=== PATIENT | female | born 1970 | race Caucasian/White ===

== ENCOUNTER 2021-08-19 08:13 | Outpatient (CLI) | payer OTHER, BC, SELFPAY ==
[2021-08-19 19:00] LABS: Hematocrit 46.7 % (37.0-47.0); Hemoglobin 15.2 g/dL (12.0-15.0); Mean Corpuscular HGB Conc 32.5 g/dl (32-36); Mean Corpuscular Volume 89.1 fl (80-100); Mean Platelet Volume 9.9 fl (7.4-10.4); Platelet Count Result 280 k/mm3 (150-375); Red Blood Count 5.24 M/mm3 (4.2-5.4); Red Cell Distribution Width 13.7 % (11.5-14.5)
[2021-08-19 19:52] LABS: Alanine Aminotransferase 53 U/L (6-35); Albumin Level 3.9 g/dL (3.5-5.1); Alkaline Phosphatase 72 U/L (38-126); Anion Gap 8 mmol/L (8-16); Aspartate Amino Transferase 31 U/L (14-36); Bilirubin,Total 0.3 mg/dL (0.2-1.3); Blood Urea Nitrogen 12 mg/dL (7-17); Calcium 8.9 mg/dL (8.4-10.2); Carbon Dioxide 22 mmol/L (22-30); Chloride 109 mmol/L (98-107); Cholesterol 134 mg/dL (0-200); Estimated Glomerular Filt Rate > 60; Glucose 93 mg/dL (65-110); HDL Direct 37 mg/dL; Potassium 4.1 mmol/L (3.4-5.0); Sodium 139 mmol/L (137-145); Triglycerides 268 mg/dL (<150)
[2021-08-19 20:03] LABS: LDL Cholesterol Direct 64 mg/dL
[2021-08-19 21:03] LABS: Thyroid Stimulating Hormone Reflex 0.197 uIU/mL (0.465-4.68)
[2021-08-19 23:41] LABS: Total Triiodothyronine (T3) 1.29 NG/ML (0.97-1.69)
== END 2021-08-19 08:14 | disposition home or self-care (01) ==
PROVIDERS: PCP Family Medicine; Visit Provider Family Medicine
DX: E89.0 Postprocedural hypothyroidism (principal); F41.9 Anxiety disorder, unspecified; T78.40XA Allergy, unspecified, initial encounter
CPT/HCPCS: 36415; 80053; 80061; 84439; 84443; 84480; 85027

== ENCOUNTER 2022-10-01 15:26 | Emergency (ER) | payer OTHER, BC, SELFPAY ==
--- NOTE | ~2022-10-01 | XR_ITS ---
EXAM: XR wrist RT min 3V DATE: 10/01/2022 15:54 HISTORY: FELL OFF LADDER 10/01/22. HYPEREXTENDED/PAIN. . COMPARISON: None available. FINDINGS: Normal mineralization. Old ulnar styloid fracture. No acute fracture or dislocation. No ly tic or blastic lesion. Joint spaces are maintained. No erosion or periosteal change. Soft tissues wit hin normal limits. IMPRESSION: No acute osseous finding in the right wrist. Reviewed, dictated and finalized at location K.
[2022-10-01 15:44] VITALS: BP 128/65; PULSE 96; RESP 20; TEMP 36.9; O2SAT 96
--- NOTE | 2022-10-01 15:54 | ED_ITS ---
HPI - Extremity Injury (Upper) General Chief Complaint: Extremity Injury, Upper Stated Complaint: Right wrist History of Present Illness HPI narrative: Patient presents with right wrist pain. Patient states she was painting and fell off the ladder with her right hand out to catch herself. Slight swelling pain with movement no deformity noted. No bruising noted. Related Data Allergies Allergy/AdvReac Type Severity Reaction Status Date / Time amoxicillin Allergy Rash Verified 10/01/22 16:02 Penicillins Allergy Rash Verified 10/01/22 16:02 Review of Systems Review of Systems: CONSTITUTIONAL: Denies fever, chills, or sweats. EYES: Denies visual changes, redness, or discharge. ENT: Denies rhinorrhea, congestion, sore throat, or otalgia. CARDIOVASCULAR: Denies chest pain, palpitations, or edema. RESPIRATORY: Denies cough or dyspnea. GASTROINTESTINAL: Denies abdominal pain, nausea, vomiting, or diarrhea. GENITOURINARY: Denies dysuria or hematuria. SKIN: Denies rash or itching. MUSCULOSKELETAL: Denies back pain, joint pain, or myalgia. NEUROLOGIC: Denies headache, numbness, or weakness. PSYCHIATRIC: Denies anxiety or depression. [facility] Comments At time of signature, agree with nursing past medical, surgical, social and family history. There is no relevant family history pertinent to the presenting complaint Exam Narrative: GENERAL: Well-appearing, well-nourished, and in no acute distress. HEAD: Normocephalic, atraumatic. EYES: PERRLA and EOMI. ENT: Nares clear, no rhinorrhea or epistaxis. Mucous membranes moist. NECK: Supple. CHEST: Clear to auscultation. No respiratory distress. HEART: Regular rate and rhythm. No murmur heard. Normal peripheral pulses. ABDOMEN: Soft, nontender, nondistended, normal active bowel sounds. EXTREMITIES: Normal range of motion. No edema. HAND EXAM - Skin intact, no laceration, no swelling, no erythema, normal digit cascade with flexion of fingers, median nerve, ulnar nerve, radial nerve is intact. Normal sensation of each side of each finger, can perform `ok? sign, `cross over finger test of index and middle fingers? and `thumbs up? sign, normal thumb opposition, no scissoring. good capillary refill and radial pulse. normal flexion and extension of fingers and wrist. normal supination at wrist. Normal forearm and elbow exam. SKIN: Warm, dry, no rash. NEURO: No focal deficits. Alert and oriented x3. [place] Coma Scale Eye Opening: Spontaneous 4 [place] Coma Scale Motor: Obeys Commands 6 [place] Coma Scale Verbal: Oriented 5 [place] Coma Scale Total 15 Course Course Level of Care: Express Care Visit Discharge Plan Discharge Clinical Impression: Sprain and strain of wrist Patient Disposition: Home, Self-Care Condition: Stable Instructions: Wrist Sprain (ED) Additional Instructions: Ice to the area 20-30 minutes 4-6 times a day Elevate above heart Elastic wrap for comfort for the next 5-7 days Tylenol for lesser pain Ibuprofen regularly for the next 2-3 days for the inflammation Follow-up with PCP if further problems or concerns -If you have any worsening of symptoms or any other concerns please go to the ED immediately. Follow-up/Referrals: Elvin Smith MD [Primary Care Provider] -
== END 2022-10-01 16:10 | disposition home or self-care (01) ==
PROVIDERS: Emergency Provider Nurse Practitioner Family; PCP Family Medicine
DX: S63.501A Unspecified sprain of right wrist, initial encounter (principal); S66.911A Strain of unspecified muscle, fascia and tendon at wrist and hand level, right hand, initial encounter; W11.XXXA Fall on and from ladder, initial encounter; E11.9 Type 2 diabetes mellitus without complications; E89.0 Postprocedural hypothyroidism; Z85.850 Personal history of malignant neoplasm of thyroid
CPT/HCPCS: 73110; 99213; G0463

== ENCOUNTER 2023-01-02 15:09 | Outpatient (CLI) | payer OTHER, BC, SELFPAY ==
--- NOTE | ~2023-01-02 | MM_ITS ---
EXAMINATION: MM screening yvon BI w blas HISTORY: Screening mammogram TECHNIQUE: Craniocaudal and mediolateral oblique 3-D tomosynthesis images were obtained and synthetic 2-D images were generated. CAD analysis was submitted and interpreted. COMPARISON: 12/16/2011 BREAST PARENCHYMAL COMPOSITION: There are scattered areas of fibroglandular density. FINDINGS: No suspicious mass, calcification, or architectural distortion are identified in either monica ast to suggest malignancy. There has been no suspicious interval change. IMPRESSION: 1. No mammographic evidence of malignancy. 2. Recommend routine screening mammography in one year. BI-RADS Category 1: Negative Reviewed, dictated and finalized at location A.
== END 2023-01-02 15:10 | disposition home or self-care (01) ==
LOC: ANHIMG 15:14
PROVIDERS: PCP Family Medicine; Visit Provider Nurse Practitioner Adult Health
DX: Z12.31 Encounter for screening mammogram for malignant neoplasm of breast (principal)
CPT/HCPCS: 77063; 77067

== ENCOUNTER 2023-01-25 07:09 | Outpatient (CLI) | payer OTHER, BC, SELFPAY ==
[2023-01-25 19:26] LABS: Free T4 Free Thyroxine 1.98 ng/mL (0.78-2.19)
[2023-01-25 19:53] LABS: Thyroid Stimulating Hormone < 0.015 uIU/mL (0.465-4.680)
[2023-01-29 15:40] LABS: Triiodothyronine T3 Free 4.2 pg/mL (2.3-4.2)
== END 2023-01-25 07:10 | disposition home or self-care (01) ==
LOC: ANHBWCLAB 07:12
PROVIDERS: PCP Family Medicine; Visit Provider Family Medicine
DX: E03.9 Hypothyroidism, unspecified (principal)
CPT/HCPCS: 36415; 84439; 84443; 84481

== ENCOUNTER 2023-03-01 09:08 | Emergency (ER) | payer OTHER, BC, SELFPAY ==
[2023-03-01 09:18] VITALS: BP 149/84; PULSE 103; RESP 18; TEMP 37.6; O2SAT 96
--- NOTE | 2023-03-01 09:33 | ED.GENADULT ---
HPI - General Adult General Chief complaint: Upper Respiratory Infection Stated complaint: cough/throat/fever Source: patient, RN notes reviewed and old records reviewed Mode of arrival: ambulatory Limitations: no limitations History of Present Illness HPI narrative: 53-year-old female presents to [facility] with complaints cough, myalgia, chest congestion, and sore throat that started . Patient taking [id number] medications with no relief. Patient denies chest pain, weakness, dizziness, shortness of breath. MD complaint: Cough Onset (ago): day(s) (6) Related Data Home Medications Medication Instructions Recorded Confirmed Vitamin d3 BYMOUTH 08/18/21 calcium carbonate 500 mg calcium 500 mg PO DAILY 08/18/21 03/01/23 (1,250 mg) tablet Allergies Allergy/AdvReac Type Severity Reaction Status Date / Time amoxicillin Allergy Intermediate rash Verified 03/01/23 09:44 Penicillins Allergy Unknown Unknown Verified 03/01/23 09:44 Review of Systems Constitutional: Constitutional: Reports no additional constitutional complaints, Denies body ache(s), Denies chills, Denies fatigue, Denies fever(s) and Denies headache(s) Eyes: Eyes: Reports no additional eye complaints and Denies blurry vision ENT: Reports system reviewed and no additional complaints, except as documented, Denies vertigo, Denies dizziness, Denies ear discharge, Denies otalgia, Denies facial pain, Denies headache(s), Denies nasal congestion, Denies nasal discharge, Denies sinus pain, Denies sinus pressure and Denies sore throat Cardiovascular: Cardiovascular: Reports no additional cardiovascular complaints, Denies chest pain, Denies chest pain at rest, Denies rapid heart rate and Denies dyspnea Respiratory: Respiratory: Reports no additional respiratory complaints, Reports chest congestion, Reports cough, Denies pain on inspiration, Denies pain with cough and Denies dyspnea Gastrointestinal: Gastrointestinal: Denies abdominal pain, Denies diarrhea, Denies nausea and Denies vomiting Integumentary/Breasts: Skin/Breast: Denies rash Neurologic: Reports system reviewed and no additional complaints, except as documented, Denies vertigo, Denies dizziness and Denies headache(s) Endocrine: Endocrine: Denies fatigue PMF Past Medical History Medical History Hypothyroidism, unspecified Family History Family History Father Hypertension Mother Skin cancer Grandparent Skin cancer Social History Social History Smoking status: Never smoker Alcohol intake: never Substance use: never Substance use type: does not use Lack of Transportation: No Lack of Food: Never True Current Housing: I Have Housing Concerned About Future Housing: No Difficulty Paying Gas/Electric Bills: No Difficulty Paying for Meds: No Currently Unemployed: No Education: High School Diploma/GED Difficulty w/ Childcare or Family Care: No Living arrangements: with family Occupation/Education: occupation Additional occupation/education comments: [employer] / Patient Access Gender identity (if verbalized by the patient): Female Sexual Orientation (if Verbalized by the Patient): Straight or Heterosexual Spiritual care concerns: No Agree to blood products: Yes Comments At the time of my signature, I reviewed and agree with the nursing past medical, surgical, social, and family history. There is no relevant family history pertinent to the patient complaint. Exam Const: General: cooperative, healthy appearing, no acute distress and well nourished Nutritional Appearance: well nourished Orientation/consciousness: patient oriented x3 Limitations: no limitations HENMT: Head: normal to inspection and normocephalic Ears: external ears normal, TM's normal bilaterally
== END 2023-03-01 10:07 | disposition home or self-care (01) ==
PROVIDERS: Emergency Provider Registered Nurse; PCP Family Medicine
DX: J20.9 Acute bronchitis, unspecified (principal); Z20.822 Contact with and (suspected) exposure to COVID-19; E03.9 Hypothyroidism, unspecified
CPT/HCPCS: 87081; 87426; 87804; 87880; 99213; C9803; G0463

== ENCOUNTER 2023-04-21 10:43 | Outpatient (CLI) | payer OTHER, BC, SELFPAY ==
[2023-04-21 11:36] LABS: Free T4 Free Thyroxine 1.52 ng/mL (0.78-2.19)
[2023-04-21 11:38] LABS: Thyroid Stimulating Hormone 0.156 uIU/mL (0.465-4.680)
== END 2023-04-21 10:44 | disposition home or self-care (01) ==
LOC: ANHLAB 10:44
PROVIDERS: PCP Family Medicine; Visit Provider Internal Medicine
DX: E03.9 Hypothyroidism, unspecified (principal); C73 Malignant neoplasm of thyroid gland
CPT/HCPCS: 36415; 84439; 84443; 86800

== ENCOUNTER 2023-05-17 08:59 | Outpatient (CLI) | payer OTHER, BC, SELFPAY ==
--- NOTE | ~2023-05-17 | US_ITS ---
EXAMINATION: US soft tissue head and neck DATE: 05/17/2023 09:43 INDICATION: Thyroid cancer. TECHNIQUE: Multiple ultrasound images of the thyroid were obtained. COMPARISON: Ultrasound 12/16/2011 FINDINGS: There are changes of thyroidectomy. In the left neck, there is a 2.4 x 0.7 x 2.0 cm subcutaneous mass with echogenicity and echotexture equal to normal subcutaneous fat, consistent with a lipoma. In the left neck, there is a normal subcutaneous lymph node. In the right thyroidectomy bed, there is a 9 m m, solid, very hypoechoic, wider than tall nodule with smooth margin and macrocalcifications (TI-RADS TR5). IMPRESSION: 1. Nodule in the right thyroidectomy bed. Consider ultrasound-guided fine-needle aspiration or resect ion. Reviewed, dictated and finalized at location A. IMPRESSION: 1. Nodule in the right thyroidectomy bed. Consider ultrasound-guided fine-needl e aspiration or resection.
== END 2023-05-17 09:00 | disposition home or self-care (01) ==
PROVIDERS: PCP Family Medicine; Visit Provider Internal Medicine
DX: E03.9 Hypothyroidism, unspecified (principal); C73 Malignant neoplasm of thyroid gland
CPT/HCPCS: 36415; 76536; 86800

== ENCOUNTER 2023-05-23 09:14 | Outpatient (CLI) | payer OTHER, BC, SELFPAY ==
[2023-05-26 04:46] LABS: Thyroglobulin 0.6 ng/mL (2.8-40.9); Thyroglobulin Antibodies <1 IU/mL (<=1)
== END 2023-05-23 09:15 | disposition home or self-care (01) ==
LOC: ANHWCLAB 09:16
PROVIDERS: PCP Family Medicine; Visit Provider Internal Medicine
DX: C73 Malignant neoplasm of thyroid gland (principal)
CPT/HCPCS: 36415; 84432; 86800

== ENCOUNTER 2023-06-20 12:36 | Outpatient (CLI) | payer OTHER, BC, SELFPAY ==
--- NOTE | ~2023-06-20 | US_ITS ---
EXAMINATION: US FNA w image guidance DATE: 06/20/2023 14:15 INDICATION: Status post directly for reported thyroid cancer with 9 mm indeterminate nodule at the [facility] thyroidectomy bed TECHNIQUE: A time-out was performed to verify the patient's name, date of , and procedure to be performed . The procedure and its benefits and risks were discussed with the patient. Risks specifically discus sed included bleeding and infection. The patient understood the risks and agreed to proceed. The neck was prepped and draped in the usual sterile manner. 3 mL 1% lidocaine was used for local anesthesia . 7 passes were made with a 25G needle into the lesion. The appearance of the nodule suggested possi ble cystic component and an additional 8 pass was made with a 22G needle for attempted fluid aspirati on which did not yield an appreciable fluid. Appropriate needle location was documented with continuo us sonographic guidance. A sterile bandage was applied. There were no immediate complications. FINDINGS: Grayscale ultrasound images demonstrate biopsy needles advanced into the 9 mm very hypoechoic nodules concern at the right thyroidectomy bed. IMPRESSION: 1. Successful ultrasound-guided fine needle aspiration of a 9 mm TI RADS 5 nodule at the right thyro idectomy bed. Reviewed, dictated and finalized at location A. IMPRESSION: 1. Successful ultrasound-guided fine needle aspiration of a 9 mm TI RADS 5 nod ule at the right thyroidectomy bed.
== END 2023-06-20 12:37 | disposition home or self-care (01) ==
PROVIDERS: PCP Family Medicine; Visit Provider Internal Medicine
DX: C73 Malignant neoplasm of thyroid gland (principal)
CPT/HCPCS: 10005; 88172; 88173; 88305

== ENCOUNTER 2023-08-28 07:03 | Outpatient (CLI) | payer OTHER, BC, SELFPAY ==
[2023-08-28 19:35] LABS: Free T4 Free Thyroxine 1.01 ng/mL (0.78-2.19)
[2023-08-28 19:47] LABS: Hemoglobin A1C 5.4 % (<5.7)
[2023-08-30 07:38] LABS: Thyroglobulin 0.4 ng/mL; Thyroglobulin Antibodies <1 IU/mL (< or = 1)
== END 2023-08-28 07:04 | disposition home or self-care (01) ==
PROVIDERS: PCP Family Medicine; Visit Provider Internal Medicine
DX: C73 Malignant neoplasm of thyroid gland (principal); E03.9 Hypothyroidism, unspecified; E88.819 Insulin resistance, unspecified; R35.89 Other polyuria
CPT/HCPCS: 36415; 83036; 84432; 84439; 84443; 86800

== ENCOUNTER 2023-09-27 07:23 | Outpatient (CLI) | payer OTHER, BC, SELFPAY ==
[2023-09-27 19:11] LABS: Hematocrit 46.8 % (37.0-47.0); Hemoglobin 15.2 g/dL (12.0-15.0); Mean Corpuscular HGB Conc 32.5 g/dl (32-36); Mean Corpuscular Hemoglobin 29.3 pg (26-34); Mean Corpuscular Volume 90.2 fl (80-100); Mean Platelet Volume 9.9 fl (7.4-10.4); Platelet Count Result 309 k/mm3 (150-375); Red Blood Count 5.19 M/mm3 (4.2-5.4); Red Cell Distribution Width 13.2 % (11.5-14.5)
[2023-09-27 20:29] LABS: Alanine Aminotransferase 43 U/L (6-35); Albumin Level 4.5 g/dL (3.5-5.1); Alkaline Phosphatase 68 U/L (38-126); Anion Gap 12 mmol/L (4-12); Aspartate Amino Transferase 77 U/L (14-36); Bilirubin,Total 0.5 mg/dL (0.2-1.3); Blood Urea Nitrogen 21 mg/dL (7-17); Calcium 9.6 mg/dL (8.4-10.2); Carbon Dioxide 23 mmol/L (22-30); Chloride 104 mmol/L (98-107); Cholesterol 165 mg/dL (0-200); Estimated Glomerular Filt Rate > 60; Glucose 82 mg/dL (65-110); HDL Direct 34 mg/dL; Potassium 4.1 mmol/L (3.4-5.0); Sodium 139 mmol/L (137-145); Triglycerides 252 mg/dL (<150)
[2023-09-27 20:40] LABS: LDL Cholesterol Direct 95 mg/dL
== END 2023-09-27 07:24 | disposition home or self-care (01) ==
LOC: ANHBWCLAB 07:27
PROVIDERS: PCP Family Medicine; Visit Provider Family Medicine
DX: R74.8 Abnormal levels of other serum enzymes (principal); E03.9 Hypothyroidism, unspecified; F41.9 Anxiety disorder, unspecified; D58.2 Other hemoglobinopathies; Z00.00 Encounter for general adult medical examination without abnormal findings
CPT/HCPCS: 36415; 80053; 80061; 85027

== ENCOUNTER 2023-10-30 07:25 | Outpatient (CLI) | payer OTHER, BC, SELFPAY ==
[2023-10-30 18:55] LABS: Basophils Absolute Auto 0.1 K/mm3 (0.0-0.1); Basophils Percent Auto 1.2 % (0.2-1.2); Eosinophils Absolute Auto 0.2 K/mm3 (0-0.3); Eosinophils Percent Auto 2.3 % (0-4.4); Hematocrit 47.6 % (37.0-47.0); Hemoglobin 15.1 g/dL (12.0-15.0); Immature Granulocyte Absolute 0.02 K/mm3 (0.00-0.031); Immature Granulocyte Percent A 0.3 % (0-0.5); Lymphocytes Percent Auto 38.7 % (18.3-44.2); Mean Corpuscular HGB Conc 31.7 g/dl (32-36); Mean Corpuscular Volume 91.4 fl (80-100); Monocytes Absolute Auto 0.6 K/mm3 (0.1-0.6); Monocytes Percent Auto 8.7 % (2.6-8.5); Neutrophils Absolute Auto 3.2 K/mm3 (1.3-6.7); Neutrophils Percent Auto 48.8 % (45.5-73.1); Platelet Count Result 282 k/mm3 (150-375); Red Blood Count 5.21 M/mm3 (4.2-5.4); Red Cell Distribution Width 13.5 % (11.5-14.5); White Blood Count 6.5 K/mm3 (4.5-10.0)
[2023-10-30 18:56] LABS: Cholesterol 139 mg/dL (0-200); HDL Direct 37 mg/dL; Magnesium 2.3 mg/dL (1.6-2.3); Triglycerides 226 mg/dL (<150)
[2023-10-30 19:08] LABS: LDL Cholesterol Direct 64 mg/dL
[2023-10-30 19:27] LABS: Cortisol Baseline 8.56 ug/dL
[2023-10-30 19:28] LABS: Thyroid Stimulating Hormone 0.211 uIU/mL (0.465-4.680)
[2023-10-30 19:51] LABS: Vitamin D 25 Hydroxy 23.4 ng/mL
[2023-10-30 20:04] LABS: Vitamin B12 > 1000.0 pg/mL (239-931)
[2023-10-30 22:45] LABS: Iron 118 ug/dL (37-170)
[2023-10-30 23:02] LABS: Free T4 Free Thyroxine 1.39 ng/mL (0.78-2.19)
[2023-10-30 23:39] LABS: Percent Iron Saturation 35 % (20-50)
[2023-11-02 02:44] LABS: Triiodothyronine T3 Free 3.7 pg/mL (2.3-4.2)
[2023-11-02 03:15] LABS: DHEA-Sulfate 101 mcg/dL (5-167)
[2023-11-04 06:39] LABS: Adrenocorticotropic Hormone 15 pg/mL (6-50)
[2023-11-10 17:00] LABS: Thyroid Peroxidase Antibodies <1 IU/mL (<9)
== END 2023-10-30 07:26 | disposition home or self-care (01) ==
LOC: ANHBWCLAB 07:32
PROVIDERS: PCP Family Medicine; Visit Provider Internal Medicine Endocrinology, Diabetes & Metabolism
DX: E03.9 Hypothyroidism, unspecified (principal); R53.83 Other fatigue; E55.9 Vitamin D deficiency, unspecified; N95.1 Menopausal and female climacteric states; E13.22 Other specified diabetes mellitus with diabetic chronic kidney disease
CPT/HCPCS: 36415; 80061; 82024; 82306; 82533; 82607; 82627; 82746; 83540; 83550; 83735; 84439; 84443; 84481; 85025; 86376; 86800

== ENCOUNTER 2023-11-18 10:02 | Emergency (ER) | payer OTHER, BC, SELFPAY ==
[2023-11-18 10:09] VITALS: BP 144/84; PULSE 80; RESP 16; TEMP 37; O2SAT 100
--- NOTE | 2023-11-18 10:24 | ED.SKABFB ---
HPI - Skin/Abscess/Foreign Bdy General Chief complaint: Skin/Abscess/Foreign Body Stated complaint: poison on lower and upper body Time Seen by Provider: 11/18/23 10:24 Source: patient, RN notes reviewed and old records reviewed Mode of arrival: ambulatory Limitations: no limitations History of Present Illness HPI narrative: 53-year-old female to [facility] for complaint of red, raised, itchy rash to bilateral legs for 1 week, to bilateral ankles since Monday, and to bilateral hands since this morning. Patient states that she has not attempted to treat with medication today. Patient believes rash to be caused by poison letha. Patient reports history of similar reactions. Patient denies rash to face, cough, shortness of breath, pertinent medical history. Patient resting comfortably in exam room in no acute distress. Respirations even and nonlabored. Related Data Home Medications Medication Instructions Recorded Confirmed Vitamin d3 BYMOUTH 08/18/21 calcium carbonate 500 mg PO DAILY 04/21/23 Allergies Allergy/AdvReac Type Severity Reaction Status Date / Time amoxicillin Allergy Intermediate rash Verified 09/18/23 12:29 Penicillins Allergy Unknown Unknown Verified 09/18/23 12:29 Review of Systems Review of Systems: All systems reviewed & are unremarkable except as noted in HPI and below Constitutional: Constitutional: Reports no additional constitutional complaints Eyes: Eyes: Reports no additional eye complaints ENT: Reports system reviewed and no additional complaints, except as documented Cardiovascular: Cardiovascular: Reports no additional cardiovascular complaints, Denies chest pain and Denies dyspnea Respiratory: Respiratory: Reports no additional respiratory complaints, Denies cough and Denies dyspnea Musculoskeletal: Musculoskeletal: Reports no additional musculoskeletal complaints Integumentary/Breasts: Skin/Breast: Reports as per HPI, Reports pruritus and Reports rash Neurologic: Reports system reviewed and no additional complaints, except as documented Psychiatric: Psychiatric: Reports no additional psychiatric complaints [facility] Past Medical History Medical History Hypothyroidism, unspecified Thyroid cancer Surgical History Surgical History Hx of thyroidectomy Family History Family History Father Hypertension Mother Skin cancer Grandparent Skin cancer Social History Social History (Reviewed 11/18/23 @ 18:07 by [employer]o Smoking status: Never smoker Alcohol intake: never Substance use: never Substance use type: does not use Lack of Transportation: No Lack of Food: Never True Current Housing: I Have Housing Concerned About Future Housing: No Difficulty Paying Gas/Electric Bills: No Difficulty Paying for Meds: No Currently Unemployed: No Education: High School Diploma/GED Difficulty w/ Childcare or Family Care: No Living arrangements: with family Occupation/Education: occupation Additional occupation/education comments: [employer] / Patient Access Gender identity (if verbalized by the patient): Female Sexual Orientation (if Verbalized by the Patient): Straight or Heterosexual Spiritual care concerns: No Agree to blood products: Yes Comments At the time of my signature, I reviewed and agree with the nursing past medical, surgical, social, and family history. There is no relevant family history pertinent to the patient complaint. Exam Const: General: cooperative, healthy appearing, comfortable, no acute distress, alert and well nourished Nutritional Appearance: well nourished Orientation/consciousness: patient oriented x3 Limitations: no limitations HENMT: Head: normal to inspection Ears: external ears normal Face/Nose/Si
== END 2023-11-18 10:36 | disposition home or self-care (01) ==
PROVIDERS: Emergency Provider Nurse Practitioner Family; PCP Family Medicine
DX: L25.9 Unspecified contact dermatitis, unspecified cause (principal); E03.9 Hypothyroidism, unspecified; Z85.850 Personal history of malignant neoplasm of thyroid
CPT/HCPCS: 99213; G0463

== ENCOUNTER 2024-02-13 09:48 | Outpatient (CLI) | payer OTHER, BC, SELFPAY ==
--- NOTE | ~2024-02-13 | US_ITS ---
Thyroid ultrasound. Clinical History: Hypothyroid Findings: Real-time sonography of the thyroid gland was performed. COMPARISON: 05/17/2023 Patient is status post thyroidectomy. There is a 1.0 x 1.0 x 0.9 cm rounded mildly heterogeneous nodu le in the right thyroid bed. No other abnormality seen. Impression: Stable 1 cm nodule in the right thyroid lobe bed. Correlate with prior biopsy results.. Reviewed, dictated and finalized at location . E [facility] [facility] Impression: Stable 1 cm nodule in the right thyroid lobe bed. Correlate with prior biopsy r esults..
== END 2024-02-13 09:49 | disposition home or self-care (01) ==
PROVIDERS: PCP Family Medicine; Visit Provider Internal Medicine Endocrinology, Diabetes & Metabolism
DX: E03.9 Hypothyroidism, unspecified (principal)
CPT/HCPCS: 76536

== ENCOUNTER 2024-03-18 08:27 | Outpatient (CLI) | payer OTHER, BC, SELFPAY ==
[2024-03-18 19:49] LABS: Basophils Absolute Auto 0.1 K/mm3 (0.0-0.1); Basophils Percent Auto 1.1 % (0.2-1.2); Eosinophils Absolute Auto 0.1 K/mm3 (0-0.3); Eosinophils Percent Auto 1.3 % (0-4.4); Hemoglobin 15.9 g/dL (12.0-15.0); Immature Granulocyte Absolute 0.01 K/mm3 (0.00-0.031); Immature Granulocyte Percent A 0.2 % (0-0.5); Lymphocytes Absolute Auto 1.76 K/mm3 (0.9-3.2); Lymphocytes Percent Auto 28.2 % (18.3-44.2); Mean Corpuscular HGB Conc 33.1 g/dl (32-36); Mean Corpuscular Volume 87.4 fl (80-100); Mean Platelet Volume 10.1 fl (7.4-10.4); Monocytes Absolute Auto 0.4 K/mm3 (0.1-0.6); Monocytes Percent Auto 6.1 % (2.6-8.5); Neutrophils Percent Auto 63.1 % (45.5-73.1); Platelet Count Result 296 k/mm3 (150-375); Red Blood Count 5.49 M/mm3 (4.2-5.4); Red Cell Distribution Width 13.4 % (11.5-14.5); White Blood Count 6.3 K/mm3 (4.5-10.0)
[2024-03-18 20:09] LABS: Cholesterol 181 mg/dL (0-200); HDL Direct 35 mg/dL; Magnesium 2.4 mg/dL (1.6-2.3); Triglycerides 249 mg/dL (<150)
[2024-03-18 20:20] LABS: LDL Cholesterol Direct 106 mg/dL
[2024-03-18 21:14] LABS: Vitamin B12 > 1000.0 pg/mL (239-931)
[2024-03-18 21:15] LABS: Iron 121 ug/dL (37-170)
[2024-03-18 21:24] LABS: Percent Iron Saturation 35 % (20-50)
[2024-03-18 21:39] LABS: Vitamin D 25 Hydroxy 39.5 ng/mL
[2024-03-19 06:28] LABS: DHEA-Sulfate 99 mcg/dL (5-167)
[2024-03-19 06:38] LABS: Triiodothyronine T3 Free 2.9 pg/mL (2.3-4.2)
== END 2024-03-18 08:28 | disposition home or self-care (01) ==
PROVIDERS: PCP Family Medicine
DX: E03.9 Hypothyroidism, unspecified (principal); E13.22 Other specified diabetes mellitus with diabetic chronic kidney disease; E55.9 Vitamin D deficiency, unspecified; N95.1 Menopausal and female climacteric states; R53.83 Other fatigue
CPT/HCPCS: 36415; 80061; 82024; 82306; 82533; 82607; 82627; 82746; 83540; 83550; 83735; 84439; 84443; 85025; 86800

== ENCOUNTER 2024-03-26 09:33 | Outpatient (CLI) | payer BC, OTHER, SELFPAY ==
[2024-03-26 20:07] LABS: Hematocrit 49.6 % (37.0-47.0); Hemoglobin 16.3 g/dL (12.0-15.0); Mean Corpuscular HGB Conc 32.9 g/dl (32-36); Mean Corpuscular Hemoglobin 29.1 pg (26-34); Mean Corpuscular Volume 88.4 fl (80-100); Mean Platelet Volume 10.1 fl (7.4-10.4); Platelet Count Result 285 k/mm3 (150-375); Red Blood Count 5.61 M/mm3 (4.2-5.4); Red Cell Distribution Width 13.6 % (11.5-14.5); White Blood Count 6.5 K/mm3 (4.5-10.0)
[2024-03-26 20:14] LABS: Alanine Aminotransferase 49 U/L (6-35); Albumin Level 4.8 g/dL (3.5-5.1); Alkaline Phosphatase 84 U/L (38-126); Anion Gap 8 mmol/L (4-12); Aspartate Amino Transferase 41 U/L (14-36); Bilirubin,Total 0.6 mg/dL (0.2-1.3); Blood Urea Nitrogen 17 mg/dL (7-17); Calcium 9.6 mg/dL (8.4-10.2); Carbon Dioxide 28 mmol/L (22-30); Chloride 104 mmol/L (98-107); Estimated Glomerular Filt Rate > 60; Glucose 86 mg/dL (65-110); Potassium 4.2 mmol/L (3.4-5.0); Sodium 140 mmol/L (137-145)
[2024-03-26 20:16] LABS: Iron 74 ug/dL (37-170)
[2024-03-26 20:41] LABS: Percent Iron Saturation 21 % (20-50)
[2024-03-26 20:55] LABS: HAV RESULT Negative (Negative); Hepatitis B Surface Antigen Negative (Negative)
[2024-03-26 21:07] LABS: Hepatitis C Virus Antibody Negative (Negative)
[2024-03-26 21:10] LABS: Vitamin B12 > 1000.0 pg/mL (239-931)
[2024-03-26 22:08] LABS: Hepatitis B Core IgM Result Negative (Negative)
--- OUTSIDE RECORDS SUMMARY | 2024-03-28 16:53 | XMS_ITS | Clinical Summary ---
Author Organization [facility] Medical Office Building B Address [address] [place] [address] Care Team Providers Care Teacher Cclc Name Role Phone Leonila Young SERGIO Primary Care Provider [phone] [phone] Allergies Active Allergy Reactions Criticality Noted Date Comments Adhesive Tape-Silicones Blisters High Reaction: BLISTERS, Amoxicillin Rash,Other (See comments) Low Reaction: Reaction: Rash, ?? Latex Other (See comments) Low Reaction: Penicillins Medications calcium carbonate-vitamin D3 (CALCIUM 600 + D,3,) 1500 mg (600 mg elemental) -400 units per tablet 0 0 3 Active ascorbic acid (VITAMIN C) 100 mg tablet Take 100 mg by mouth daily Active levothyroxine (SYNTHROID) 100 mcg tabletIndications: Postoperative hypothyroidism Take 1 tablet (100 mcg total) by mouth daily 90 tablet 3 0 Active cetirizine (ZyrTEC) 10 mg tabletIndications: Upper respiratory tract infection, unspecified type Take 1 tablet by mouth once daily 90 tablet 1 0 Active azelastine (ASTELIN) 137 mcg (0.1 %) nasal spray Administer 1 spray into each nostril 2 (two) times a day Use in each nostril as directed 30 mL 3 0 Active fluticasone propionate (Flonase Allergy Relief) 50 mcg/actuation nasal sprayIndications:U pper respiratory tract infection, unspecified type Administer 2 sprays into each nostril daily 1 Inhaler 3 0 Active calcium carbonate (CALCIUM 500 ORAL) calcium 9 Active ergocalciferol, vitamin D2, (VITAMIN D2 ORAL) Vitamin D2 9 Active metFORMIN XR (GLUCOPHAGE XR) 500 mg 24 hr tablet metformin ER 500 mg tablet,extende d release 24 hr TAKE 1 TABLET BY MOUTH TWICE DAILY WITH MEALS Active Active Problems Problem Noted Date Diagnosed Date Vitamin D deficiency 07/12/2021 Nontoxic multinodular goiter 04/03/2019 Post-menopause on HRT (hormone replacement thera py) 04/25/2018 Hot flashes due to menopause 04/25/2018 Hepatic lesion 04/25/2018 Lipoma of neck 04/10/2018 Assessment & Plan (04/10/2018 3:18 PM ACCOUNT INSTALLATION SPECIALIST): After review of the case with , the recommendation is for biopsy of the mass, will schedule for fine needle aspiration with biopsy. Future treatment pending results of biopsy. Patient agrees to this plan. BMI 27.0-27.9,adult 04/27/2017 Assessment & Plan (10/04/2019 9:33 AM CDT): Healthy, low carbohydrate lifestyle and exercise for 150min/week recommended Assessment & Plan (05/22/2019 11:52 AM CDT): Healthy, low carbohydrate lifestyle and exercise for 150min/week recommended Assessment & Plan (05/01/2019 9:50 AM ACCOUNT INSTALLATION SPECIALIST): Discussed/ordered labs, Condition is improving, encouraged healthy, low carbohydrate lifestyle and at least 150min/week of exercise, continue going to the gym and eating healthy Assessment & Plan (04/03/2019 11:48 AM ACCOUNT INSTALLATION SPECIALIST): Healthy, low carbohydrate lifestyle and exercise for 150min/week recommended Assessment & Plan (12/26/2018 12:01 PM CDT): Healthy, low carbohydrate diet and exercise for 150min/week recommended Postoperative hypothyroidism 12/31/2012 Overview (06/08/2016): Hypothyroidism, postop Resolved Problems Problem Noted Date Diagnosed Date Resolved Date Malignant neoplasm of thyroid gland 04/03/2019 05/01/2019 Hypothyroidism 10/08/2018 07/12/2021 Assessment & Plan (05/01/2019 9:59 AM ACCOUNT INSTALLATION SPECIALIST): Today we are following up on her anxiety. Since starting the new dose of levothyroxine 112mcg, she has been feeling much less anxiety. She does not want anything for anxiety. Assessment & Plan (04/03/2019 11:47 AM ACCOUNT INSTALLATION SPECIALIST): Pt sees endocrinology, but their office canceled her last 2 appts. Pt is not due to see endo again until May. We will draw labs today to make sure the thyroid is not the cause of her anxiety. If it is not, we will treat the anxiety with buspirone. History of malignant neoplasm of thyroid 12/31/2012 05/01/2019 Overview (06/09/2016): History of thyroid cancer Assessment & Plan (05/01/2019 9:48 AM ACCOUNT INSTALLATION SPECIALIST): Pt had thyroid removed. Dietary counseling and surveillance 12/21/2011 06/14/2019 Immunizations Name Administration Dates Next Due Influenza, Trivalent, IM (MDV) 12/25/2017 Influenza, Unspecified 04/15/2021(Deferr ed: Patient Refused),12/05/2018,03/14/2018(Deferred: Patient ill today) Tdap 12/26/2018 ZOSTER Recombinant 05/01/2019,02/21/2019 Surgical History Surgery Date Site/Laterality Comments SECTION Sections x 2 THYROIDECTOMY 03/06/2011 - 03/05/2012 HYSTERECTOMY 03/06/2012 - 03/05/2013 fibroid uterus Medical History Medical History Date Comments Anemia History of radiation therapy History of malignant neoplasm of thyroid 2011 History of thyroid cancer Family History Medical History Relation Name Comments Cancer Maternal Grandfather Kidney cancer Maternal Grandfather Cancer Maternal Grandmother Lung cancer Maternal Grandmother Other Mother Cancer, basal c ell; Cancer Mother's Brother Kidney cancer Mother's Brother Relation Name Status Comments Maternal Grandfather Maternal Grandmother Mother Mother's Brother Social History Tobacco Use Types Packs/Day Years Used Date Smoking Tobacco: Never Smokeless Tobacco: Never Alcohol Use Standard Drinks/Week Comments Yes 0 (1 standard drink = 0.6 oz pur e alcohol) occasionally PHQ-2 Answer Date Recorded PHQ-2 Total Score (If total score is 3 or more points, staff should administer the PHQ-9) 0 04/15/2021 Personal Safety Answer Date Recorded Getting School Help Needed Not on file 04/26 Comments No Sex and Gender Information Value Date Recorded Sex Assigned at Not on file Legal Sex Female 10:47 AM ACCOUNT INSTALLATION SPECIALIST Gender Identity Not on file Sexual Orientation Not on file Obstetrics History Para Term AB IAB SAB Ectopic Multiple Livin g Live Births 2 2 2 1 3 3 Date Outcome GA Total Labor Labor// Weight Sex Type Anes PTL Jacqueline A1 A5 Name Clin 04/02 Term 2.551 kg (5 lb 10 oz) F CS-Un spec General N Living Complications:None 04/02 Term 3.005 kg (6 lb 10 oz) F CS-Un spec Living 11/17 Term 3.997 kg (8 lb 13 oz) F CS-Un spec General N Living Complications:None Last Filed Vital Signs Vital Sign Reading Time Taken Comments Blood Pressure 131/87 10/04/2019 9:22 AM CDT Pulse 97 10/04/2019 9:22 AM CDT Temperature 36.1 ??C (96.9 ??F) 10/04/2019 9:22 AM CD T Respiratory Rate 12 05/01/2019 9:33 AM ACCOUNT INSTALLATION SPECIALIST Oxygen Saturation 97% 10/04/2019 9:22 AM CDT Inhaled Oxygen Concentration - - Weight 65.3 kg (144 lb) 10/05/2020 12:52 PM CDT Height 152.4 cm (5') 04/15/2021 2:13 PM ACCOUNT INSTALLATION SPECIALIST Body Mass Index 28.12 10/05/2020 12:52 PM CDT Plan of Treatment Health Maintenance Due Date Last Done Comments Hepatitis C Screening 1970 Pneumococcal vaccine <65 (1 of 2 - PCV) 02/28/1974 Hepatitis B Screening 02/28/1986 Regular Well Visit/Exam 18-64 04/25/2019 04/25/2018 Breast Cancer Screening-Mammogram 10/05/2021 10/05/2020, 05/08/2019, 03/13/2018, Additional history exists Depression Screening 04/15/2022 04/15/2021, 05/22/2019, 04/24/2019, Additional history exists Influenza Vaccine (#1) 2023 12/05/2018, 2017 Colon Cancer Screening-Colonoscopy 05/03/2028 05/03/2018 DTaP/Tdap/Td Vaccine (2 - Td or Tdap) 12/26/2028 12/26/2018 Cervical Cancer Screening Discontinued 01/23/2017 Colon Cancer Screening-CT Colonography Discontinued 05/03/2018 Colon Cancer Screening-DNA Stool Discontinued 05/03/19, 05/03/2018 Colon Cancer Screening-FIT Discontinued 05/03/2018, Colon Cancer Screening-Sigmoidoscopy Discontinued 05/03/2018 Zoster Vaccine Completed 05/01/2019, 02/21/2019 Procedures Procedure Name Priority Date/Time Associated Diagnosis Comments SCREENING MAMMOGRAM BILATERAL W KIP Schedule Routine, Read Routine (OP Routine) 10/05/2020 1:00 PM CDT Encounter for screening mammogram for malignant neoplasm of breast HM COLONOSCOPY Routine 05/03/2018 HM PAP SMEAR WITH HPV Routine 01/23/2017 from Last 3 Months or Most Recently Relevant to Health Maintenance Results * Screening Mammogram Bilateral W Kip (10/05/2020 1:00 PM CDT) Anatomical Region Laterality Modality Breast Bilateral Mammography 10/05/2020 1:07 PM CDT Impressions 10/05/2020 1:07 PM CDT There is no mammographic evidence of malignancy. A 1 year screening mammogram is recommended. BI-RADS: 1 - Negative. The patient has been or will be contacted. The patient will be entered into a reminder system with a target due date of 1 year for her next mammogram. Electronically signed by: Jermaine Moore M.D. Narrative 10/05/2020 1:07 PM CDT EXAMINATION: SCREENING MAMMOGRAM BILATERAL W KIP ORDERING HEALTHCARE PROVIDER: SELF SCREENING MAMMOGRAM HISTORY: Routine screening mammography. COMPARISON: ??05/08/2019, 03/13/2018, 01/06/2017, 03/20/2015 TECHNIQUE: CC and MLO views of the bilateral breasts were obtained with digital technique using breast tomosynthesis with C view. Computer aided detection was utilized. FINDINGS: DENSITY: There are scattered fibroglandular elements in the bilateral breasts. BREASTS: There are no suspicious masses, suspicious calcifications, or other suspicious findings in either breast. There has been no suspicious interval change. Self Screening Mammogram IMG MAMMO PROCEDURES Fi nal Result * COLONOSCOPY (05/03/2018) Colonoscopy Normal Comment:cologuard Historical Provider MD HEALTH MAINTENANCE Final Result * PAP SMEAR WITH HPV (01/23/2017) Pap smear Normal Historical Provider HEALTH MAINTENANCE Final Result from Last 3 Months or Most Recently Relevant to Health Maintenance Insurance [employer] [place] [facility] [address] [id number] Care Teams Teacher Cclc Relationship Specialty Start Date End Date Leonila Young NP PCP - General Family Medicine 02/21/19
--- OUTSIDE RECORDS SUMMARY | 2024-03-28 16:53 | XMS_ITS | Clinical Summary ---
Author Organization [facility] Address [address], [address] [address] Phone Care Team Providers Care Garment Tag Stringer Name Role Phone Grace Koch APRN, DIAGNOSTIC TECHNICIAN Primary Care Provider Unavailable Allergies Active Allergy Reactions Criticality Noted Date Comments Amoxicillin Rash 05/23/2018 Latex Other (see Comments) 06/04/2018 If tape, it blister skin Other Other (see Comments) 06/04/2018 Adhesive tape; Blisters skin, rash, paper tape doesn't cause problems Penicillins Rash 05/23/2018 Medications estradiol (CLIMARA) 0.0375 MG/24HR PATCH WEEKLY 1 Patch by Transdermal route every 7 days. Active levothyroxine (SYNTHROID) 125 MCG Tablet Take 125 mcg by mouth daily. Active Calcium Carbonate-Vitam in D (CALCIUM 500 + D PO) Take by mouth. Act josee Active Problems No known active problems Immunizations Immunization Administration Dates Next Due Influenza Vaccine greater than 3 yrs 12/25/2017 Family History Medical History Relation Name Comments Cancer Maternal Grandfather bone? Lung Cancer Maternal Grandmother Cancer Maternal Uncle renal cell Relation Name Status Comments Father Alive Maternal Grandfather Maternal Grandmother Maternal Uncle Bone cancer Mother Alive Social History Tobacco Use Types Packs/Day Years Used Date Smoking Tobacco: Never Smokeless Tobacco: Never Alcohol Use Standard Drinks/Week Comments Not Currently 0 (1 standard drink = 0.6 oz pur e alcohol) Comments Unknown Sex and Gender Information Value Date Recorded Sex Assigned at Not on file Legal Sex Female 12:11 PM GOLD LEAF PRINTER Gender Identity Not on file Sexual Orientation Not on file Last Filed Vital Signs Vital Sign Reading Time Taken Comments Blood Pressure 117/76 06/20/2018 6:40 AM CDT Pulse 88 06/20/2018 5:33 AM CDT Temperature 36 ??C (96.8 ??F) 06/20/2018 6:40 AM CDT Respiratory Rate 17 06/20/2018 6:40 AM CDT Oxygen Saturation 99% 06/20/2018 6:40 AM CDT Inhaled Oxygen Concentration - - Weight 62.6 kg (138 lb) 06/04/2018 9:00 AM CDT Height 152.4 cm (5') 06/04/2018 9:00 AM CDT Body Mass Index 26.95 06/04/2018 9:00 AM CDT Plan of Treatment Health Maintenance Due Date Last Done Comments Hepatitis C Virus (HCV) Screening 1970 TdaP Immunization 1970 Hepatitis B Immunization (1 of 3 - 19+ 3-dose series) 02/28/1987 Cologuard 02/28/2018 Immunochemical Fecal Occult Blood 02/28/2018 Mammogram 02/28/2018 Pneumococcal Immunization (5 0+ years) (1 of 1 - PCV) 02/28/2018 Zoster Immunization (1 of 2) 02/28/2018 Colonoscopy 06/21/2023 06/20/2018 Colorectal Cancer Screening 06/21/2023 Influenza Immunization (#1) 2023 12/25/2017 SARS-COV-2 Immunization (3 - 2023- season) 2023 11/25/2020, 11/04/2020 Respiratory Syncytial Virus (RSV) Immunization (Adult) (1 - 1-dose 75+ series) 02/28/2043 06/20/2018 Meningococcal Immunization (ACWY) Aged Out No longer eligible b ased on patient's age to complete this topic Pneumococcal Immunization Combined Aged Out No longer eligible b ased on patient's age to complete this topic Rotavirus Immunization Aged Out No lo nger eligible based on patient's age to complete this topic Insurance [facility] Care Teams Garment Tag Stringer Relationship Specialty Start Date End Date Grace Koch, LOGGING SUPERINTENDENT, DIAGNOSTIC TECHNICIAN PCP - General Obstetrics & Gynecology 04/20/18
--- OUTSIDE RECORDS SUMMARY | 2024-03-28 16:53 | XMS_ITS | Referral Summary ---
Author Organization [facility] Medical Office Building B Address [address] [place] [address] Care Team Providers Care Car Dealer Name Role Phone Leonila Young SERGIO Primary Care Provider [phone] Allergies Active Allergy Reactions Criticality Noted Date [...] 04/10/2018 Assessment & Plan (04/10/2018 3:18 PM OTHER SPORTS COACH OR INSTRUCTOR): After review of the case with , [...] recommended Assessment & Plan (05/01/2019 9:50 AM OTHER SPORTS COACH OR INSTRUCTOR): Discussed/ordered labs, Condition is improving, encouraged healthy, low carbohydrate lifestyle and at least 150min/week of exercise, continue going to the gym and eating healthy Assessment & Plan (04/03/2019 11:48 AM OTHER SPORTS COACH OR INSTRUCTOR): Healthy, low carbohydrate lifestyle and exercise for 150min/week recommended Assessment & Plan (12/26/2018 12:01 PM CDT): Healthy, low carbohydrate diet and exercise for 150min/week recommended Postoperative hypothyroidism 12/31/2012 Overview (06/08/2016): Hypothyroidism, postop Resolved Problems Problem Noted Date Diagnosed Date Resolved Date Malignant neoplasm of thyroid gland 04/03/2019 05/01/2019 Hypothyroidism 10/08/2018 07/12/2021 Assessment & Plan (05/01/2019 9:59 AM OTHER SPORTS COACH OR INSTRUCTOR): Today we are following up on her anxiety. Since starting the new dose of levothyroxine 112mcg, she has been feeling much less anxiety. She does not want anything for anxiety. Assessment & Plan (04/03/2019 11:47 AM OTHER SPORTS COACH OR INSTRUCTOR): Pt sees endocrinology, but their office canceled [...] cancer Assessment & Plan (05/01/2019 9:48 AM OTHER SPORTS COACH OR INSTRUCTOR): Pt had thyroid removed. Dietary counseling and surveillance 12/21/2011 06/14/2019 Immunizations Name Administration Dates Next Due Influenza, Trivalent, IM (MDV) 12/25/2017 Influenza, Unspecified 04/15/2021(Deferr ed: Patient Refused),12/05/2018,03/14/2018(Deferred: Patient ill today) Tdap 12/26/2018 ZOSTER Recombinant 05/01/2019,02/21/2019 Social History Tobacco Use Types Packs/Day Years [...] on file Legal Sex Female 10:47 AM OTHER SPORTS COACH OR INSTRUCTOR Gender Identity Not on file Sexual Orientation Not on file Last Filed Vital Signs Vital Sign Reading Time Taken Comments Blood Pressure 131/87 10/04/2019 9:22 AM CDT Pulse 97 10/04/2019 9:22 AM CDT Temperature 36.1 ??C (96.9 ??F) 10/04/2019 9:22 AM CD T Respiratory Rate 12 05/01/2019 9:33 AM OTHER SPORTS COACH OR INSTRUCTOR Oxygen Saturation 97% 10/04/2019 9:22 AM CDT Inhaled Oxygen Concentration - - Weight 65.3 kg (144 lb) 10/05/2020 12:52 PM CDT Height 152.4 cm (5') 04/15/2021 2:13 PM OTHER SPORTS COACH OR INSTRUCTOR Body Mass Index 28.12 10/05/2020 12:52 PM CDT Plan of Treatment Not on file Procedures Procedure Name Priority Date/Time Associated Diagnosis Comments SCREENING MAMMOGRAM BILATERAL W KIP Schedule Routine, Read Routine (OP Routine) 10/05/2020 1:00 PM CDT Encounter for screening mammogram for malignant neoplasm of breast COLONOSCOPY Routine 05/03/2018 PAP SMEAR WITH HPV Routine 01/23/2017 from [...] HPV (01/23/2017) Pap smear Normal Historical Provider MD HEALTH MAINTENANCE Final Result from Last 3 Months or Most Recently Relevant to Health Maintenance Insurance [employer] [facility] [address] [id number] Care Teams Car Dealer Relationship Specialty Start Date End Date Leonila Young NP PCP - General Family Medicine 02/21/19
[2024-03-29 14:38] LABS: Erythropoietin (EPO) 6.9 mIU/mL (2.6-18.5)
== END 2024-03-26 09:34 | disposition home or self-care (01) ==
LOC: ANHBWCLAB 09:35
PROVIDERS: PCP Family Medicine; Visit Provider Family Medicine
DX: D75.1 Secondary polycythemia (principal); R74.8 Abnormal levels of other serum enzymes; Z00.00 Encounter for general adult medical examination without abnormal findings; C73 Malignant neoplasm of thyroid gland; F41.9 Anxiety disorder, unspecified
CPT/HCPCS: 36415; 80053; 80074; 82607; 82668; 82728; 83540; 83550; 85027

== ENCOUNTER 2024-04-09 08:00 | Outpatient (CLI) | payer OTHER, BC, SELFPAY ==
--- NOTE | ~2024-04-09 | US_ITS ---
Limited Abdominal Sonogram: Real-time sonographic imaging of the right upper quadrant was performed. Clinical History: Abnormal serum enzyme levels Findings: The liver appears echogenic, with no evidence of mass lesion or bile duct dilatation. Main portal vein demonstrates normal direction of flow. The gallbladder is well distended, and contains e chogenic, small gallstones. No gallbladder wall thickening evident. The common bile duct measures 4 m m. The visualized pancreas, aorta, and IVC are unremarkable. Impression: Diffuse fatty infiltration of the liver. Cholelithiasis. Reviewed, dictated and finalized at location M. SKATING TEACHER Impression: Diffuse fatty infiltration of the liver. Cholelithiasis.
--- OUTSIDE RECORDS SUMMARY | 2024-04-09 08:08 | XMS_ITS | Clinical Summary ---
Author Organization [facility] Medical Office Building B Address [address] [place] [address] Care Team Providers Care Field Inspector Name Role Phone Leonila Young SERGIO Primary Care Provider [phone] Allergies Active Allergy Reactions Criticality Noted Date [...] 04/10/2018 Assessment & Plan (04/10/2018 3:18 PM BOAT PAINTER): After review of the case with , [...] recommended Assessment & Plan (05/01/2019 9:50 AM BOAT PAINTER): Discussed/ordered labs, Condition is improving, encouraged healthy, low carbohydrate lifestyle and at least 150min/week of exercise, continue going to the gym and eating healthy Assessment & Plan (04/03/2019 11:48 AM BOAT PAINTER): Healthy, low carbohydrate lifestyle and exercise for 150min/week recommended Assessment & Plan (12/26/2018 12:01 PM CDT): Healthy, low carbohydrate diet and exercise for 150min/week recommended Postoperative hypothyroidism 12/31/2012 Overview (06/08/2016): Hypothyroidism, postop Resolved Problems Problem Noted Date Diagnosed Date Resolved Date Malignant neoplasm of thyroid gland 04/03/2019 05/01/2019 Hypothyroidism 10/08/2018 07/12/2021 Assessment & Plan (05/01/2019 9:59 AM BOAT PAINTER): Today we are following up on her anxiety. Since starting the new dose of levothyroxine 112mcg, she has been feeling much less anxiety. She does not want anything for anxiety. Assessment & Plan (04/03/2019 11:47 AM BOAT PAINTER): Pt sees endocrinology, but their office canceled [...] cancer Assessment & Plan (05/01/2019 9:48 AM BOAT PAINTER): Pt had thyroid removed. Dietary counseling and [...] on file Legal Sex Female 10:47 AM BOAT PAINTER Gender Identity Not on file Sexual Orientation [...] T Respiratory Rate 12 05/01/2019 9:33 AM BOAT PAINTER Oxygen Saturation 97% 10/04/2019 9:22 AM CDT Inhaled Oxygen Concentration - - Weight 65.3 kg (144 lb) 10/05/2020 12:52 PM CDT Height 152.4 cm (5') 04/15/2021 2:13 PM BOAT PAINTER Body Mass Index 28.12 10/05/2020 12:52 PM [...] Most Recently Relevant to Health Maintenance Insurance [employer] [place] [address] [address] [id number] Care Teams Field Inspector Relationship Specialty Start Date End Date Leonila Young NP PCP - General Family Medicine 02/21/19
--- OUTSIDE RECORDS SUMMARY | 2024-04-09 08:08 | XMS_ITS | Referral Summary ---
Author Organization [facility] Medical Office Building B Address [address] [place] [address] Care Team Providers Care Environmental Engineering Technician Name Role Phone Leonila Young SERGIO Primary Care Provider [phone] [phone] Allergies Active Allergy Reactions Criticality Noted Date [...] 04/10/2018 Assessment & Plan (04/10/2018 3:18 PM FOOD SERVICE SPECIALIST): After review of the case with [...] recommended Assessment & Plan (05/01/2019 9:50 AM FOOD SERVICE SPECIALIST): Discussed/ordered labs, Condition is improving, encouraged healthy, low carbohydrate lifestyle and at least 150min/week of exercise, continue going to the gym and eating healthy Assessment & Plan (04/03/2019 11:48 AM FOOD SERVICE SPECIALIST): Healthy, low carbohydrate lifestyle and exercise for 150min/week recommended Assessment & Plan (12/26/2018 12:01 PM CDT): Healthy, low carbohydrate diet and exercise for 150min/week recommended Postoperative hypothyroidism 12/31/2012 Overview (06/08/2016): Hypothyroidism, postop Resolved Problems Problem Noted Date Diagnosed Date Resolved Date Malignant neoplasm of thyroid gland 04/03/2019 05/01/2019 Hypothyroidism 10/08/2018 07/12/2021 Assessment & Plan (05/01/2019 9:59 AM FOOD SERVICE SPECIALIST): Today we are following up on her anxiety. Since starting the new dose of levothyroxine 112mcg, she has been feeling much less anxiety. She does not want anything for anxiety. Assessment & Plan (04/03/2019 11:47 AM FOOD SERVICE SPECIALIST): Pt sees endocrinology, but their office [...] cancer Assessment & Plan (05/01/2019 9:48 AM FOOD SERVICE SPECIALIST): Pt had thyroid removed. Dietary counseling [...] on file Legal Sex Female 10:47 AM FOOD SERVICE SPECIALIST Gender Identity Not on file Sexual Orientation Not on file Last Filed Vital Signs Vital Sign Reading Time Taken Comments Blood Pressure 131/87 10/04/2019 9:22 AM CDT Pulse 97 10/04/2019 9:22 AM CDT Temperature 36.1 ??C (96.9 ??F) 10/04/2019 9:22 AM CD T Respiratory Rate 12 05/01/2019 9:33 AM FOOD SERVICE SPECIALIST Oxygen Saturation 97% 10/04/2019 9:22 AM CDT Inhaled Oxygen Concentration - - Weight 65.3 kg (144 lb) 10/05/2020 12:52 PM CDT Height 152.4 cm (5') 04/15/2021 2:13 PM FOOD SERVICE SPECIALIST Body Mass Index 28.12 10/05/2020 12:52 [...] Most Recently Relevant to Health Maintenance Insurance [employer] [facility] [address] [id number] Care Teams Environmental Engineering Technician Relationship Specialty Start Date End Date Leonila Young NP PCP - General Family Medicine 02/21/19"
--- OUTSIDE RECORDS SUMMARY | 2024-04-09 08:08 | XMS_ITS | Clinical Summary ---
Author Organization [facility] Address [address], [address] [address] Phone Care Team Providers Care Foundation Engineer Name Role Phone Grace Koch APRN, KILN SETTER Primary Care Provider Unavailable Allergies Active Allergy [...] on file Legal Sex Female 12:11 PM FIRM ADMINISTRATOR Gender Identity Not on file Sexual Orientation [...] patient's age to complete this topic Insurance [facility] Care Teams Foundation Engineer Relationship Specialty Start Date End Date Grace Koch, MAYLIN, KILN SETTER PCP - General Obstetrics & Gynecology 04/20/18
--- OUTSIDE RECORDS SUMMARY | 2024-04-09 08:09 | XMS_ITS | Data Portability ---
Author Organization [facility] [employer], Main Office Address [address] [place] [address] Assessment No assessment recorded. Plan of Treatment Reminders Order Date Submit Date Provider Last Modified By Organization Details Last Modified Time Details Appointments None recorded. Lab lipid panel, serum 2022 023 [facility], [address], [place], [address], 3 14:22:19 insulin, serum 2022 023 [facility], [address], [place], [address], 3 13:11:23 HbA1c (hemoglobin A1c), blood 2022 023 [facility], [address], [place], [address], 3 11:59:38 TSH + free T4, serum 2022 023 [facility], [address], [place], [address], 3 15:15:49 T3, free, serum or plasma 2022 023 [facility], [address], [place], [address], 3 14:39:35 CMP, serum or plasma 2022 023 [facility], [address], [place], [address], 3 14:22:17 thyroglobul in + thyroglobul in Ab, serum 2022 023 [facility], [address], [place], [address], 3 15:03:13 Referral None recorded. Procedures None recorded. Surgeries None recorded. Imaging US, thyroid 2022 023 MA[facility] Not available 3 14:07:17 Medication Orders metformin ER 500 mg tablet,exte nded release 24 hr 2022 023 [facility] #[id number], [address], [place], [place], [id number], 3 12:27:11 phentermine 15 mg capsule 2022 023 [facility] #[id number], [address], [place], [place], [id number], 3 12:25:08 cyanocobala min (vit B-12) 1,000 mcg/mL injection solution 2022 023 [facility] #[id number], [address], [place], [place], [id number], 3 14:27:36 metformin ER 500 mg tablet,exte nded release 24 hr 2022 023 [facility] #[id number], [address], [place], [place], [id number], 3 14:26:12 Synthroid 112 mcg tablet 2022 023 [facility], [facility] [address], [address], [place], [address], 3 14:26:08 phentermine 15 mg capsule 2022 023 [id number], [address], [place], [place], [id number], 3 14:31:33 Patient TargetsNo targets recorded. Patient InstructionsNo instructions recorded. Reason for Referral None Reported. Results Created Date Observation Date Name Description Value Unit Range Abnormal Flag Note LastModifiedBy Organization Detail LastModifiedTime 09/18/19 21 09/22/2020 HERED .HEMO CHROM ATOSI S, DNA hereditary hemochromato sis commen t Resul t: JOSE ER Singl e mutat ion (H63D ) ident ified . Inter preta tion: This patie nt's sampl e was flaco zed for the hered itary hemoc hroma tosis (HH) mutat ions C282Y , H63D, and S65C. A singl e copy of H63D was ident ified . Resul ts for C282Y and S65C were negat serena. This perso n is most likel y an unaff ected jose er. Appro ximat kendell 1 in 9 [facility] sians are jose ers of HH. The mutat ions flaco zed by [facility] are most commo n in the [facility] roland popul ation . Becau se this panel does not ident jose rare HH mutat ions or HH mutat ions found in other ethni c group s, there are a small numbe r of peopl e who may have a singl e copy of H63D who are actua lly affec kimber. The diagn osis of HH sushil martel inclu de clini becky findi ngs and other test resul ts, such as trans jessica n-iro n satur ation and/o r serum jessica tin studi es and/o r liver biops y. HH is inher ited in a reces sive alejandrina martel this indiv idual have child lucy with a partn er who is also a jose er for HH, there is a 25% chanc e per offsp ring that he/sh e is affec kimber. Lady ic couns eling and HH molec ular testi ng are recom connie d for at- risk famil y membe rs. Metho dolog y: DNA Flaco sis of the HFE gene was perfo rmed by PCR ampli ficat ion follo wed by restr ictio n enzym e diges tion flaco ses. . Refer ence: Gato ORELLANA and Kate WELSH. (2000 ). Lady Test 4:97- 101. [facility] anthony KOCH et al. (1998 ). AM J Prev Med 16:13 4-140 . Phil Null (2002 ). Raheem t 360(8 461): 1673- 81. Shelley bynum et al. (2002 ). Blood Cells , Molec ules. and Disea ses. 29(3) :418- 432. [facility] scout Sharif et al. (2003 ). Lady Med. 5(1): 1-8. [facility] KOCH et al. (2003 ). Lady Med. 5(4): 304-1 0. . This test was devel oped and its perfo rmanc e shannon cteri stics deter mined by [facility]. It has not been clear ed or appro bridgett by the Food and Drug Admin istra tion. . Lady ic couns elors are avail able for [facility]i ders to discu ss resul ts at [phone]. . Víctor charles, PhD, FAC Martine bynum, PhD, FACMG W. Cezar Chi, PhD, FACMG Vik garcia, PhD, FAC Landy Palomares, PhD, FAC Brijesh henry, PhD, FAC Perfo rmed at: [facility] [place] [address] [facility] , [place] [address] Lab Direc tor: Sydneeqamarfletcher [facility] , Phone : [phone] [facility] (Lab) [address] [place], [address], 09/22/2020 18:09:18 09/18/19 21 09/21/2020 GREGORY/A NTINU CLEAR ANTIB ODIES ,IFA antinuclear antibodies, ifa negati ve Negat serena <1:80 Borde rline 1:80 Posit serena >1:80 Perfo rmed at: [facility] n [address] [place] [address] Lab Direc tor: Nico hatfield PhD, Phone : [phone] [facility] (Lab) [address] [place], [address], 09/21/2020 12:19:19 09/18/19 21 09/19/2020 THYRO ID PEROX IDASE (TPO) AB thyroid peroxidase (tpo) Ab <8 IU/mL 0-34 Perfo rmed at: [facility] [address] [place] [address] Lab Direc tor: Nico hatfield PhD, Phone : [phone] [facility] (Lab) [address] [place], [address], 09/19/2020 10:47:28 09/18/19 21 09/17/2020 FOLAT E, SERUM /PLAS MA folate >20.0 NG/mL 2.76- Not Available [facility] (Lab) [address] [place], [address], 09/17/2020 21:59:42 09/18/19 21 09/17/2020 VITAM IN B12 (SHAWN CAMPOS ) vb12 566 pg/mL 239-[address] [facility] (Lab) [address] [place], [address], 09/17/2020 21:59:41 09/18/19 21 09/17/2020 TSH thyroid-stim ulating hormone 8.030 uIU/m L 0.465- 4.[address] [facility] (Lab) [address] [place], [address], 09/17/2020 21:35:55 09/18/19 21 09/17/2020 T3 FREE free T3 3.2 pg/mL 2.77-[address] [facility] (Lab) [address] [place], [address], 09/17/2020 21:34:09 09/18/19 21 09/17/2020 T4 FREE free T4 0.90 NG/dL 0.78-[address] [facility] (Lab) [address] [place], [address], 09/17/2020 21:34:07 09/18/19 21 09/17/2020 IRON/ TIBC PANEL iron 81 mcg/d L 42-[address] [facility] (Lab) [address] [place], [address], 09/17/2020 21:32:18 09/18/19 21 09/17/2020 IRON/ TIBC PANEL total iron binding capacity 350 mcg/d L 265-[address] [facility] (Lab) [address] [place], [address], 09/17/2020 21:32:18 09/18/19 21 09/17/2020 IRON/ TIBC PANEL % transferrin saturation 23 % 20-55 Not Available [facility] (Lab) [address] [place], [address], 09/17/2020 21:32:18 09/18/19 21 09/17/2020 IRON/ TIBC PANEL unsaturated iron bind capacity 269 mcg/d L 126-[address] [facility] (Lab) [address] [place], [address], 09/17/2020 21:32:18 09/18/19 21 09/17/2020 COMPR EHENS SERENA METAB OLIC PANEL creatinine 0.67 mg/dL 0.66-[address] [facility] (Lab) [address] [place], [address], 09/17/2020 21:31:09 09/18/19 21 09/17/2020 COMPR EHENS SERENA METAB OLIC PANEL sodium 142 mmol/ L 137-[address] [facility] (Lab) [address] [place], [address], 09/17/2020 21:31:09 09/18/19 21 09/17/2020 COMPR EHENS SERENA METAB OLIC PANEL potassium 4.6 mmol/ L 3.5-5. 1 Not Available [facility] (Lab) [address] [place], [address], 09/17/2020 21:31:09 09/18/19 21 09/17/2020 COMPR EHENS SERENA METAB OLIC PANEL chloride 107 mmol/ L 98-[address] [facility] (Lab) [address] [place], [address], 09/17/2020 21:31:09 09/18/19 21 09/17/2020 COMPR EHENS SERENA METAB OLIC PANEL carbon dioxide 26 mmol/ L 22-[address] [facility] (Lab) [address] [place], [address], 09/17/2020 21:31:09 09/18/19 21 09/17/2020 COMPR EHENS SERENA METAB OLIC PANEL agap 13.6 mmol/ L 14-[address] [facility] (Lab) [address] [place], [address], 09/17/2020 21:31:09 09/18/19 21 09/17/2020 COMPR EHENS SERENA METAB OLIC PANEL glucose 82 mg/dL 70-[address] [facility] (Lab) [address] [place], [address], 09/17/2020 21:31:09 09/18/19 21 09/17/2020 COMPR EHENS SERENA METAB OLIC PANEL BUN 19 mg/dL 8-[address] [facility] (Lab) [address] [place], [address], 09/17/2020 21:31:09 09/18/19 21 09/17/2020 COMPR EHENS SERENA METAB OLIC PANEL GFR >60 Refer ence Range : [place] ge GFR Healt hy Adult : >60 mL/mi n/1.7 3 m2 Chron ic Kidne y Disea se: 15-60 mL/mi n/1.7 3 m2 Kidne y Failu re: <15/m L/min /1.73 m2 www.n iddk. nih.g ov MDRD study equat ion hasn' t been valid ated in child lucy <18 yrs of age, pregn ant women , the elder ly >85 yrs of age, or in some racia l or ethni c subgr oups, suc as Hispa nics. Outsi de the valid ated fern eters , estim ated GFR is less accur ate requi ring clini becky judgm ent on a case by case basis . Clini becky inter preta tion for other races and ages must be made by the clini chaz . Futhe rmore , any of th e limit ation s with the use of serum creat inine relat ed to nutri nisreen l statu s o r medic ation usage hasn' t accou nted for the MDRD Study equat ion. For perso ns < 18 yrs of age, a pedia tric GFR calcu lator can be locat ed on the [facility] websi te: https :[email or web address] carrillo.[email or web address] espana.o rg/pr ofess ional s/kdo qi/gf r_cal culat or Not Available [facility] (Lab) [address] [place], [address], 09/17/2020 21:31:09 09/18/19 21 09/17/2020 COMPR EHENS SERENA METAB OLIC PANEL alkaline phosphatase 79 U/L 38-126 Not Available [facility] (Lab) [address] [place], [address], 09/17/2020 21:31:09 09/18/19 21 09/17/2020 COMPR EHENS SERENA METAB OLIC PANEL alanine aminotransfe rase 45 U/L 0-35 high Not Available [facility] (Lab) [address] [place], [address], 09/17/2020 21:31:09 09/18/19 21 09/17/2020 COMPR EHENS SERENA METAB OLIC PANEL aspartate aminotransfe rase 36 U/L 15-37 Not Available [facility] (Lab) [address] [place], [address], 09/17/2020 21:31:09 09/18/19 21 09/17/2020 COMPR EHENS SERENA METAB OLIC PANEL bilirubin, total 0.70 mg/dL 0.20-[address] [facility] (Lab) [address] [place], [address], 09/17/2020 21:31:09 09/18/19 21 09/17/2020 COMPR EHENS SERENA METAB OLIC PANEL calcium 9.2 mg/dL 8.4-[address] [facility] (Lab) [address] [place], [address], 09/17/2020 21:31:09 09/18/19 21 09/17/2020 COMPR EHENS SERENA METAB OLIC PANEL total protein 6.9 g/dL 6.3-8. [address] [facility] (Lab) [address] [place], [address], 09/17/2020 21:31:09 09/18/19 21 09/17/2020 COMPR EHENS SERENA METAB OLIC PANEL albumin 4.6 g/dL 3.4-5. [address] [facility] (Lab) [address] [place], [address], 09/17/2020 21:31:09 09/18/19 21 09/17/2020 COMPR EHENS SERENA METAB OLIC PANEL globulin 2.3 g/dL 2.6-4. [address] [facility] (Lab) [address] [place], [address], 09/17/2020 21:31:09 09/18/19 21 09/17/2020 COMPR EHENS SERENA METAB OLIC PANEL A/G ratio 2.0 ratio 1.0-2. [address] [facility] (Lab) [address] [place], [address], 09/17/2020 21:31:09 12/09/19 21 12/18/2020 THYRO GLOBU MCKENNA BY LCMS thyroglobuli n by lcms tnp Test not perfo rmed This test was devel oped and its perfo rmanc e shannon cteri stics deter mined by [facility]. It has not been clear ed or appro bridgett by the Food and Drug Admin istra tion. Perfo rmed at: - [facility] [address] [facility] [place] [address] Lab Direc tor: Elyssa coley MD, Phone : [phone] [facility] (Lab) [address] [place], [address], 12/18/2020 17:09:05 12/09/19 21 12/08/2020 TSH thyroid-stim ulating hormone 1.700 uIU/m L 0.465- 4.[address] [facility] (Lab) [address] [place], [address], 12/08/2020 15:31:20 12/09/19 21 12/08/2020 T4 FREE free T4 1.27 NG/dL 0.78-[address] [facility] (Lab) [address] [place], [address], 12/08/2020 15:29:54 12/09/19 21 12/08/2020 COMPR EHENS SERENA METAB OLIC PANEL sodium 141 mmol/ L 137-[address] [facility] (Lab) [address] [place], [address], 12/08/2020 14:30:23 12/09/19 21 12/08/2020 COMPR EHENS SERENA METAB OLIC PANEL potassium 4.3 mmol/ L 3.5-5. [address] [facility] (Lab) [address] [place], [address], 12/08/2020 14:30:23 12/09/19 21 12/08/2020 COMPR EHENS SERENA METAB OLIC PANEL chloride 109 mmol/ L 98-[address] [facility] (Lab) [address] [place], [address], 12/08/2020 14:30:23 12/09/19 21 12/08/2020 COMPR EHENS SERENA METAB OLIC PANEL carbon dioxide 24 mmol/ L 22-30 Not Available [facility] (Lab) [address] [place], [address], 12/08/2020 14:30:23 12/09/19 21 12/08/2020 COMPR EHENS SERENA METAB OLIC PANEL agap 12.3 mmol/ L 14-[address] [facility] (Lab) [address] [place], [address], 12/08/2020 14:30:23 12/09/19 21 12/08/2020 COMPR EHENS SERENA METAB OLIC PANEL glucose 88 mg/dL 70-99 Not Available [facility] (Lab) [address] [place], [address], 12/08/2020 14:30:23 12/09/19 21 12/08/2020 COMPR EHENS SERENA METAB OLIC PANEL BUN 18 mg/dL 8-[address] [facility] (Lab) [address] [place], [address], 12/08/2020 14:30:23 10/05/12/08/2020 COMPR EHENS SERENA METAB OLIC PANEL creatinine 0.74 mg/dL 0.66-[address] [facility] (Lab) [address] [place], [address], 12/08/2020 14:30:23 12/09/19 21 12/08/2020 COMPR EHENS SERENA METAB OLIC PANEL GFR >60 Refer ence Range : [place] GFR Healt hy Adult : >60 mL/mi n/1.7 3 m2 Chron ic Kidne y Disea se: 15-60 mL/mi n/1.7 3 m2 Kidne y Failu re: <15/m L/min /1.73 m2 www.n iddk. nih.g ov MDRD study equat ion hasn' t been valid ated in child lucy <18 yrs of age, pregn ant women , the elder ly >85 yrs of age, or in some racia l or ethni c subgr oups, suc as Hispa nics. Outsi de the valid ated fern eters , estim ated GFR is less accur ate requi ring clini becky judgm ent on a case by case basis . Clini becky inter preta tion for other races and ages must be made by the clini chaz . Futhe rmore , any of th e limit ation s with the use of serum creat inine relat ed to nutri nisreen l statu s o r medic ation usage hasn' t accou nted for the MDRD Study equat ion. For perso ns < 18 yrs of age, a pedia tric GFR calcu lator can be locat ed on the [facility] websi te: https ://rm w.kid jovi.o rg/pr ofess ional s/kdo qi/gf r_cal culat or Not Available [facility] (Lab) [address] [place], [address], 12/08/2020 14:30:23 12/09/19 21 12/08/2020 COMPR EHENS SERENA METAB OLIC PANEL alkaline phosphatase 71 U/L 38-126 Not Available [facility] (Lab) [address] [place], [address], 12/08/2020 14:30:23 12/09/19 21 12/08/2020 COMPR EHENS SERENA METAB OLIC PANEL alanine aminotransfe rase 39 U/L 0-35 high Not Available [facility] (Lab) [address] [place], [address], 12/08/2020 14:30:23 12/09/19 21 12/08/2020 COMPR EHENS SERENA METAB OLIC PANEL aspartate aminotransfe rase 32 U/L 15-37 Not Available [facility] (Lab) [address] [facility] [place], [address], 12/08/2020 14:30:23 12/09/19 21 12/08/2020 COMPR EHENS SERENA METAB OLIC PANEL bilirubin, total 0.30 mg/dL 0.20-[address] [facility] (Lab) [address] [place], [address], 12/08/2020 14:30:23 12/09/19 21 12/08/2020 COMPR EHENS SERENA METAB OLIC PANEL calcium 9.6 mg/dL 8.4-[address] [facility] (Lab) [address] [place], [address], 12/08/2020 14:30:23 12/09/19 21 12/08/2020 COMPR EHENS SERENA METAB OLIC PANEL total protein 6.8 g/dL 6.3-8. [address] [facility] (Lab) [address] [place], [address], 12/08/2020 14:30:23 12/09/19 21 12/08/2020 COMPR EHENS SERENA METAB OLIC PANEL albumin 4.5 g/dL 3.4-5. [address] [facility] (Lab) [address] [place], [address], 12/08/2020 14:30:23 12/09/19 21 12/08/2020 COMPR EHENS SERENA METAB OLIC PANEL globulin 2.3 g/dL 2.6-4. [address] [facility] (Lab) [address] [place], [address], 12/08/2020 14:30:23 12/09/19 21 12/08/2020 COMPR EHENS SERENA METAB OLIC PANEL A/G ratio 2.0 ratio 1.0-2. [address] [facility] (Lab) [address] [place], [address], 12/08/2020 14:30:23 04/13/19 22 04/20/2021 THYRO GLOBU MCKENNA BY LCMS thyroglobuli n by lcms 0.3 NG/mL 1.5-38 .5 low This test was kartik green and its perfo rmanc e shannon cteri stics deter mined by [facility]. It has not been clear ed or appro bridgett by the Food and Drug Admin istra tion. . Accor ding to the Natio nal Acade my of Clini becky Bioch emist ry, the refer ence inter jimbo for Thyro globu mcknena (TG) shoul d be relat ed to euthy roid patie nts and not for patie nts who under went thyro idect neal. TG refer ence inter vals for these patie nts depen d on the resid ual mass of the thyro id tissu e left after surge ry. Estab lishi ng a post- opera tive basel ine is recom connie d. The assay limit of quant itati on is 0.2 ng/mL Perfo rmed at: BN - [facility] [place] [address] [place] [address] , [place] [address] Lab Direc tor: Elyssa coley MD, Phone : [phone] [facility] (Lab) [address] [place], [address], 04/20/2021 14:15:18 04/13/19 22 04/13/2021 FOLAT E, SERUM /PLAS MA folate >20.0 NG/mL 2.76- Not Available [facility] (Lab) [address] [place], [address], 04/13/2021 14:44:30 04/13/19 22 04/13/2021 VITAM IN B12 (SHAWN CAMPOS ) vb12 705 pg/mL 239-93 1 Not Available [facility] (Lab) [address] [place], [address], 04/13/2021 14:44:27 04/13/19 22 04/13/2021 TSH thyroid-stim ulating hormone 0.189 uIU/m L 0.465- 4.[address] [facility] (Lab) [address] [place], [address], 04/13/2021 14:03:20 04/13/19 22 04/13/2021 T4 FREE free T4 1.39 NG/dL 0.78-[address] [facility] (Lab) [address] [place], [address], 04/13/2021 13:59:03 04/13/19 22 04/13/2021 COMPR EHENS SERENA METAB OLIC PANEL BUN 15 mg/dL 8-[address] [facility] (Lab) [address] [place], [address], 04/13/2021 13:34:06 04/13/19 22 04/13/2021 COMPR EHENS SERENA METAB OLIC PANEL sodium 138 mmol/ L 137-[address] [facility] (Lab) [address] [place], [address], 04/13/2021 13:34:06 04/13/19 22 04/13/2021 COMPR EHENS SERENA METAB OLIC PANEL potassium 4.2 mmol/ L 3.5-5. [address] [facility] (Lab) [address] [place], [address], 04/13/2021 13:34:06 04/13/19 22 04/13/2021 COMPR EHENS SERENA METAB OLIC PANEL chloride 109 mmol/ L 98-[address] [facility] (Lab) [address] [facility] [place], [address], 04/13/2021 13:34:06 04/13/19 22 04/13/2021 COMPR EHENS SERENA METAB OLIC PANEL carbon dioxide 24 mmol/ L 22-[address] [facility] (Lab) [address] [place], [address], 04/13/2021 13:34:06 04/13/19 22 04/13/2021 COMPR EHENS SERENA METAB OLIC PANEL agap 9.2 mmol/ L 14-[address] [facility] (Lab) [address] [place], [address], 04/13/2021 13:34:06 04/13/19 22 04/13/2021 COMPR EHENS SERENA METAB OLIC PANEL glucose 94 mg/dL 70-[address] [facility] (Lab) [address] [place], [address], 04/13/2021 13:34:06 04/13/19 22 04/13/2021 COMPR EHENS SERENA METAB OLIC PANEL creatinine 0.68 mg/dL 0.66-[address] [facility] (Lab) [address] [place], [address], 04/13/2021 13:34:06 04/13/19 22 04/13/2021 COMPR EHENS SERENA METAB OLIC PANEL GFR >60 Refer ence Range : [place] GFR Healt hy Adult : >60 mL/mi n/1.7 3 m2 Chron ic Kidne y Disea se: 15-60 mL/mi n/1.7 3 m2 Kidne y Failu re: <15/m L/min /1.73 m2 www.n iddk. nih.g ov The MDRD study equat ion has not been valid ated in child lucy <18 years of age; pregn ant women ; the elder ly >85 years of age; or in some racia l or ethni c subgr oups, such as Hispa nics. Outsi de the valid ated fern eters , estim ated GFR is less accur ate, requi ring clini becky judgm ent on a case- by-ca se basis . Clini becky inter preta tion for other races and ages must be made by the clini chaz. The MDRD study equat ion has not been valid ated for the evalu ation of serum creat inine relat ed to nutri nisreen l statu s or medic ation usage . For perso ns <18 years of age, a pedia tric GFR calcu lator is avail able on the [facility] websi te: https ://rm w.rafael espana.o rg/pr ofess ional s/kdo qi/gf r_cal culat or Not Available [facility] (Lab) [address] [place], [address], 04/13/2021 13:34:06 04/13/19 22 04/13/2021 COMPR EHENS SERENA METAB OLIC PANEL alkaline phosphatase 68 U/L 38-126 Not Available [facility] (Lab) [address] [place], [address], 04/13/2021 13:34:06 04/13/19 22 04/13/2021 COMPR EHENS SERENA METAB OLIC PANEL alanine aminotransfe rase 67 U/L 0-35 high Not Available [facility] (Lab) [address] [place], [address], 04/13/2021 13:34:06 04/13/19 22 04/13/2021 COMPR EHENS SERENA METAB OLIC PANEL aspartate aminotransfe rase 39 U/L 15-37 high Not Available [facility] (Lab) [address] [place], [address], 04/13/2021 13:34:06 04/13/19 22 04/13/2021 COMPR EHENS SERENA METAB OLIC PANEL bilirubin, total 0.50 mg/dL 0.20-1 .30 Not Available [facility] (Lab) [address] [place], [address], 04/13/2021 13:34:06 04/13/19 22 04/13/2021 COMPR EHENS SERENA METAB OLIC PANEL calcium 8.8 mg/dL 8.4-[address] [facility] (Lab) [address] [place], [address], 04/13/2021 13:34:06 04/13/19 22 04/13/2021 COMPR EHENS SERENA METAB OLIC PANEL total protein 6.6 g/dL 6.3-8. [address] [facility] (Lab) [address] [place], [address], 04/13/2021 13:34:06 04/13/19 22 04/13/2021 COMPR EHENS SERENA METAB OLIC PANEL albumin 4.2 g/dL 3.4-5. [address] [facility] (Lab) [address] [place], [address], 04/13/2021 13:34:06 04/13/19 22 04/13/2021 COMPR EHENS SERENA METAB OLIC PANEL globulin 2.4 g/dL 2.6-4. [address] [facility] (Lab) [address] [place], [address], 04/13/2021 13:34:06 04/13/19 22 04/13/2021 COMPR EHENS SERENA METAB OLIC PANEL A/G ratio 1.8 ratio 1.0-2. [address] [facility] (Lab) [address] [place], [address], 04/13/2021 13:34:06 09/22/19 22 09/22/2021 THYRO GLOBU MCKENNA ANTIB RAFAELA thyroglobuli n antibody <1.0 IU/mL 0.0-0. 9 Thyro globu mckenna Antib rafaela measu red by Brett Rouse er Metho dolog y [facility] [address] [facility], [place] [address] 1265 Lab Direc tor: Nico hatfield PhD, Phone : [phone] [facility] (Lab) [address] [place], [address], 09/22/2021 23:07:25 09/22/19 22 09/22/2021 INSUL IN insulin 28.8 uIU/m L 2.6-24 .9 high Perfo rmed at: [facility] n [address] [facility], [place] [address] Lab Direc tor: Nico hatfield PhD, Phone : [phone] [facility] (Lab) [address] [place], [address], 09/22/2021 13:09:45 09/22/19 22 09/21/2021 HEMOG LOBIN A1C HA1C 5.6 % 4.0-6. 0 Diabe karuna Scree luca Crite moisés: <5.7% Consi stent with absen ce of diabe karuna 5.7-6 .4% Consi stent with incre ased risk for diabe karuna (pred iabet es) >OR=6 .5% Consi stent with diabe karuna REFER ENCE: Diabe karuna Care 2016, 39(Hager ppl.1 ):s13 -s22 [address] [facility] (Lab) [address] [place], [address], 09/21/2021 18:57:00 09/22/19 22 09/21/2021 TSH thyroid-stim ulating hormone 0.376 uIU/m L 0.465- 4.[address] [facility] (Lab) [address] [place], [address], 09/21/2021 13:23:06 09/22/19 22 09/21/2021 T4 FREE free T4 1.61 NG/dL 0.78-[address] [facility] (Lab) [address] [place], [address], 09/21/2021 13:15:13 09/22/19 22 09/21/2021 LIPID PANEL cholesterol 142 mg/dL 140-19 9 NIH KALA NSUS RECOM MENDA TION FOR WALTER STERO L: ADULT CHILD LOW RISK: <200 <170 BORDE RLINE : <200- 239 ----- HIGH RISK: >240 >[address] [facility] (Lab) [address] [place], [address], 09/21/2021 12:57:10 09/22/19 22 09/21/2021 LIPID PANEL triglyceride s 244 mg/dL 0-150 high NIH KALA NSUS REPOR T RECOM MENDA TION FOR TRIGL YCERI JOSE DANIEL: ADULT CHILD LOW RISK: <150 ----- BODER LINE: 150-1 99 ----- HIGH RISK: >200 ----- Not Available [facility] (Lab) [address] [place], [address], 09/21/2021 12:57:10 09/22/19 22 09/21/2021 LIPID PANEL HDL cholesterol 36 mg/dL 40- low Not Available [facility] (Lab) [address] [place], [address], 09/21/2021 12:57:10 09/22/19 22 09/21/2021 LIPID PANEL LDL cholesterol, calculated 57 mg/dL 0-130 NIH KALA NSUS REPOR T RECOM MENDA TIONS FOR LDL: ADULT CHILD LOW RISK <130 <110 (OPTI MAL LDL) <100 ----- BORDE RLINE : 130-1 59 ----- HIGH RISK: >160 >130 A TRIGL YCERI DE RESUL T >400 INVAL IDATE S THE CALCU LATIO N FOR LDL FRACT IONAT ION - THE LDL RESUL T WILL NOT BE REPOR KIMBER. Not Available [facility] (Lab) [address] [place], [address], 09/21/2021 12:57:10 09/22/19 22 09/21/2021 COMPR EHENS SERENA METAB OLIC PANEL sodium 140 mmol/ L 137-14 5 Not Available [facility] (Lab) [address] [place], [address], 09/21/2021 12:57:06 09/22/19 22 09/21/2021 COMPR EHENS SERNEA METAB OLIC PANEL potassium 4.4 mmol/ L 3.5-5. [address] [facility] (Lab) [address] [place], [address], 09/21/2021 12:57:06 09/22/19 22 09/21/2021 COMPR EHENS SERENA METAB OLIC PANEL chloride 107 mmol/ L 98-[address] [facility] (Lab) [address] [place], [address], 09/21/2021 12:57:06 09/22/19 22 09/21/2021 COMPR EHENS SERENA METAB OLIC PANEL creatinine 0.75 mg/dL 0.66-1 .25 Not Available [facility] (Lab) [address] [place], [address], 09/21/2021 12:57:06 09/22/19 22 09/21/2021 COMPR EHENS SERENA METAB OLIC PANEL carbon dioxide 25 mmol/ L 22-[address] [facility] (Lab) [address] [place], [address], 09/21/2021 12:57:06 09/22/19 22 09/21/2021 COMPR EHENS SERENA METAB OLIC PANEL anion gap 12.4 mmol/ L 14-[address] [facility] (Lab) [address] [place], [address], 09/21/2021 12:57:06 09/22/19 22 09/21/2021 COMPR EHENS SERENA METAB OLIC PANEL glucose 91 mg/dL 70-[address] [facility] (Lab) [address] [facility] [place] [place], [address], 09/21/2021 12:57:06 09/22/19 22 09/21/2021 COMPR EHENS SERENA METAB OLIC PANEL BUN 13 mg/dL 8-[address] [facility] (Lab) [address] [facility] [place] [place], [address], 09/21/2021 12:57:06 09/22/19 22 09/21/2021 COMPR EHENS SERENA METAB OLIC PANEL GFR >60 Refer ence Range : [place] ge GFR Healt hy Adult : >60 mL/mi n/1.7 3 m2 Chron ic Kidne y Disea se: 15-60 mL/mi n/1.7 3 m2 Kidne y Failu re: <15/m L/min /1.73 m2 www.n iddk. nih.g ov The MDRD study equat ion has not been valid ated in child lucy <18 years of age; pregn ant women ; the elder ly >85 years of age; or in some racia l or ethni c subgr oups, such as [facility] nics. Outsi de the valid ated fern eters , estim ated GFR is less accur ate, requi ring clini becky judgm ent on a case- by-ca se basis . Clini becky inter preta tion for other races and ages must be made by the clini chaz. The MDRD study equat ion has not been valid ated for the evalu ation of serum creat inine relat ed to nutri nisreen l statu s or medic ation usage . For perso ns <18 years of age, a pedia tric GFR calcu lator is avail able on the [facility] websi te: https ://rm w.rafael brauny.o rg/pr ofess ional s/kdo qi/gf r_cal culat or Not Available [facility] (Lab) [address] [place], [address], 09/21/2021 12:57:06 09/22/19 22 09/21/2021 COMPR EHENS SERENA METAB OLIC PANEL alkaline phosphatase 76 U/L 38-126 Not Available [facility] (Lab) [address] [place], [address], 09/21/2021 12:57:06 09/22/19 22 09/21/2021 COMPR EHENS SERENA METAB OLIC PANEL alanine aminotransfe rase 56 U/L 0-35 high Not Available [facility] (Lab) [address] [place], [address], 09/21/2021 12:57:06 09/22/19 22 09/21/2021 COMPR EHENS SERENA METAB OLIC PANEL aspartate aminotransfe rase 37 U/L 15-37 Not Available [facility] (Lab) [address] [place], [address], 09/21/2021 12:57:06 09/22/19 22 09/21/2021 COMPR EHENS SERENA METAB OLIC PANEL bilirubin, total 0.60 mg/dL 0.20-[address] [facility] (Lab) [address] [place], [address], 09/21/2021 12:57:06 09/22/19 22 09/21/2021 COMPR EHENS SERENA METAB OLIC PANEL calcium 9.6 mg/dL 8.4-[address] [facility] (Lab) [address] [facility] [place], [address], 09/21/2021 12:57:06 09/22/19 22 09/21/2021 COMPR EHENS SERENA METAB OLIC PANEL total protein 6.8 g/dL 6.3-8. [address] [facility] (Lab) [address] [place], [address], 09/21/2021 12:57:06 09/22/19 22 09/21/2021 COMPR EHENS SERENA METAB OLIC PANEL albumin 4.5 g/dL 3.4-5. [address] [facility] (Lab) [address] [place], [address], 09/21/2021 12:57:06 09/22/19 22 09/21/2021 COMPR EHENS SERENA METAB OLIC PANEL globulin 2.3 g/dL 2.6-4. [address] [facility] (Lab) [address] [place], [address], 09/21/2021 12:57:06 09/22/19 22 09/21/2021 COMPR EHENS SERENA METAB OLIC PANEL A/G ratio 2.0 ratio 1.0-2. [address] [facility] (Lab) [address] [place], [address], 09/21/2021 12:57:06 03/22/19 23 03/23/2022 HEMOG LOBIN A1C hemoglobin A1C 5.4 %_of_ total _HGB <5.7 normal For the purpo se of floridalma luca for the prese nce of diabe karuna: <5.7% Consi stent with the absen ce of diabe karuna 5.7-6 .4% Consi stent with incre ased risk for diabe karuna (pred iabet es) > or =6.5% Consi stent with diabe karuna This assay resul t is consi stent with a decre ased risk of diabe karuna. Curre ntly, no conse nsus exist radha grossman use of hemog lobin A1c for diagn osis of diabe karuna in child lucy. Accor chauncey to Ameri can Diabe karuna Assoc iatio n (ADA) guide lines , hemog lobin A1c <7.0% repre sents optim al contr ol in non-p regna nt diabe tic patie nts. Diffe rent metri cs may apply to speci fic patie nt popul atzane s. Stand ards of Medic al Care in Diabe karuna(A DA). Not Available [facility] [address] [address] [place], [address], 03/23/2022 18:58:56 03/22/19 23 03/23/2022 TSH+F REE T4 TSH 0.01 mIU/L low Refer ence Range > or = 20 Years 0.40- 4.50 Pregn ellis Range s First trime ster 0.26- 2.66 Secon d trime ster 0.55- 2.73 Third trime ster 0.43- 2.91 Not Available [address] [address] [place], [address], 03/23/2022 18:58:56 03/22/19 23 03/23/2022 TSH+F REE T4 T4, free 2.0 NG/dL 0.8-1. 8 high Not Available [facility] [address] [address] [place], [address], 03/23/2022 18:58:56 03/22/19 23 03/23/2022 THYRO GLOBU MCKENNA PANEL thyroglobuli n antibodies <1 IU/mL < or = 1 normal Not Available [address] [address] [place], [address], 03/23/2022 18:58:55 03/22/1903/23/2022 THYRO GLOBU MCKENNA PANEL thyroglobuli n 0.2 NG/mL low Refer ence Range : Intac t Thyro id 2.8-4 0.9 Athyr otic <0.1 Note: Abnor mal atif ing is based on the refer ence inter jimbo for patie nts with intac t thyro id. This test was perfo rmed using the [employer] an ZIMPERIUMt er chemi lumin escen t metho d. Value s obtai vinicio from diffe rent assay metho ds canno t be used inter morales eably . Thyro globu mckenna level s, regar dless of value , shoul d not be inter prete d as absol tonto apache evide nce of the prese nce or absen ce of disea se. For addit ional infor oskar hill refer to http: //enrico bucio stdia gnost ics.c om/fa q/FAQ (This link is being provi ded for infor jeff blackwell/ educdimitri felix purpo ses only. ) Not Available [facility] [place] [address] [address] [place], [address], 03/23/2022 18:58:55 03/22/19 23 03/23/2022 VITAM IN B12/F OLATE , SERUM PANEL vitamin B12 508 pg/mL 200-11 00 normal Not Available [facility] [address] [place], [address], 03/23/2022 18:58:55 03/22/1903/23/2022 VITAM IN B12/F OLATE , SERUM PANEL folate, serum 16.5 NG/mL normal Refer ence Range Low: <3.4 Borde rline : 3.4-5 .4 Kerri l: >5.4 Not Available [address], [address], 03/23/2022 18:58:55 03/22/19 23 03/23/2022 INSUL IN insulin 26.9 uIU/m L high Refer ence Range < or = 18.4 Risk: Optim al < or = 18.4 Moder ate NA High >18.4 Adult cardi ovasc ular event risk categ ory cut point s (opti mal, moder ate, high) are based on Insul in Refer ence Inter jimbo studi es perfo rmed at [facility] in 2021. Not Available [facility] [employer] [address] [address] [place], [address], 03/23/2022 18:58:55 03/22/19 23 03/23/2022 COMPR EHENS SERENA METAB OLIC PANEL glucose 90 mg/dL 65-99 normal Fasti ng refer ence inter jimbo Not Available [facility] [address] [address] [place], [address], 03/23/2022 18:58:54 03/22/19 23 03/23/2022 COMPR EHENS SERENA METAB OLIC PANEL urea nitrogen (BUN) 13 mg/dL 7-25 normal Not Available [address] [address] [place], [address], 03/23/2022 18:58:54 03/22/19 23 03/23/2022 COMPR EHENS SERENA METAB OLIC PANEL creatinine 0.71 mg/dL 0.50-1 .03 normal Not Available [address], [address], 03/23/2022 18:58:54 03/22/19 23 03/23/2022 COMPR EHENS SERENA METAB OLIC PANEL eGFR 101 mL/mi n/1.7 3m2 > or = 60 normal The eGFR is based on the CKD-E PI 2020 equat ion. To calcu late the new eGFR from a previ ous Creat inine or Cysta tin C resul t, go to https ://rm martell/marcio tucker s/ kdoqi /gfr% 5Fcal culat or Not Available [address] [address] [place], [address], 03/23/2022 18:58:54 03/22/19 23 03/23/2022 COMPR EHENS SERENA METAB OLIC PANEL BUN/creatini ne ratio not applic able (calc ) 6-22 Not Available [facility] [address] [address] [place], [address], 03/23/2022 18:58:54 03/22/19 23 03/23/2022 COMPR EHENS SERENA METAB OLIC PANEL sodium 142 mmol/ L 135-14 6 normal Not Available [address] [address] [place], [address], 03/23/2022 18:58:54 03/22/19 23 03/23/2022 COMPR EHENS SERENA METAB OLIC PANEL potassium 4.2 mmol/ L 3.5-5. 3 normal Not Available [address], [address], 03/23/2022 18:58:54 03/22/19 23 03/23/2022 COMPR EHENS SERENA METAB OLIC PANEL chloride 110 mmol/ L 98-110 normal Not Available [address], [address], 03/23/2022 18:58:54 03/22/19 23 03/23/2022 COMPR EHENS SERENA METAB OLIC PANEL carbon dioxide 22 mmol/ L 20-32 normal Not Available [address], [address], 03/23/2022 18:58:54 03/22/19 23 03/23/2022 COMPR EHENS SERENA METAB OLIC PANEL calcium 9.5 mg/dL 8.6-10 .4 normal Not Available [address], [address], 03/23/2022 18:58:54 03/22/19 23 03/23/2022 COMPR EHENS SERENA METAB OLIC PANEL protein, total 6.5 g/dL 6.1-8. 1 normal Not Available [address], [address], 03/23/2022 18:58:54 03/22/19 23 03/23/2022 COMPR EHENS SERENA METAB OLIC PANEL albumin 4.4 g/dL 3.6-5. 1 normal Not Available [address], [address], 03/23/2022 18:58:54 03/22/19 23 03/23/2022 COMPR EHENS SERENA METAB OLIC PANEL globulin 2.1 g/dL_ (calc ) 1.9-3. 7 normal Not Available [address], [address], 03/23/2022 18:58:54 03/22/19 23 03/23/2022 COMPR EHENS SERENA METAB OLIC PANEL albumin/glob ulin ratio 2.1 (calc ) 1.0-2. 5 normal Not Available [address], [address], 03/23/2022 18:58:54 03/22/19 23 03/23/2022 COMPR EHENS SERENA METAB OLIC PANEL bilirubin, total 0.4 mg/dL 0.2-1. 2 normal Not Available [address], [address], 03/23/2022 18:58:54 03/22/19 23 03/23/2022 COMPR EHENS SERENA METAB OLIC PANEL alkaline phosphatase 77 U/L 37-153 normal Not Available [address], [address], 03/23/2022 18:58:54 03/22/19 23 03/23/2022 COMPR EHENS SERENA METAB OLIC PANEL AST 19 U/L 10-35 normal Not Available [address], [address], 03/23/2022 18:58:54 03/22/19 23 03/23/2022 COMPR EHENS SERENA METAB OLIC PANEL ALT 31 U/L 6-29 high Not Available [address], [address], 03/23/2022 18:58:54 03/22/19 23 03/23/2022 LIPID PANEL , STAND EMIR cholesterol, total 140 mg/dL <200 normal Not Available [address], [address], 03/23/2022 18:58:54 03/22/19 23 03/23/2022 LIPID PANEL , STAND EMIR HDL cholesterol 44 mg/dL > or = 50 low Not Available [facility] [address] [place], [address], 03/23/2022 18:58:54 03/22/19 23 03/23/2022 LIPID PANEL , STAND EMIR triglyceride s 206 mg/dL <150 high If a non-f astin g speci men was colle cted, consi radha repea t trigl yceri de testi ng on a fasti ng speci men if clini archana indic ated. Prabhakar garnica et al. J. of Clin. Lipid ol. 2015; 9:129 -169. Not Available [facility] [address] [address] [place], [address], 03/23/2022 18:58:54 03/22/19 23 03/23/2022 LIPID PANEL , STAND EMIR LDL-choleste rol 69 mg/dL _(becky c) normal Refer ence range : <100 Luana able range <100 mg/dL for prima ry preve ntion ; <70 mg/dL for patie nts with CHD or diabe tic patie nts with > or = 2 CHD risk facto rs. LDL-C is now calcu lated using the Yolis n-Hop kins calcu trisha n, which is a valid ated novel metho d provi ding nils r accur acy than the Fried sebastian equat ion in the estim ation of LDL-C . Yolis bynum SS et al. SRIRAM. 2013; 310(1 9): 2061- 2068 (http ://ed ucati on.Qu estDi Gaatus. com/f aq/FA Q164) Not Available [facility] [address] [place], [address], 03/23/2022 18:58:54 03/22/19 23 03/23/2022 LIPID PANEL , STAND EMIR chol/HDLC ratio 3.2 (calc ) <5.0 normal Not Available [facility] [address] [place], [address], 03/23/2022 18:58:54 03/22/19 23 03/23/2022 LIPID PANEL , STAND EM[place] non HDL cholesterol 96 mg/dL _(becky c) <130 normal For patie nts with diabe karuna plus 1 major ASCVD risk facto r, treat ing to a non-H DL-C goal of <100 mg/dL (LDL- C of <70 mg/dL ) is consi dered a thera peuti c optio n. Not Available [facility] [address] [address], [place], [address], 03/23/2022 18:58:54 07/19/19 23 07/18/2022 HEMOG LOBIN A1C HA1C 5.4 % 4.0-6. 0 Diabe karuna Scree luca Crite moisés: <5.7% Consi stent with absen ce of diabe karuna 5.7-6 .4% Consi stent with incre ased risk for diabe karuna (pred iabet es) >OR=6 .5% Consi stent with diabe karuna REFER ENCE: Diabe karuna Care 2016, 39(Hager ppl.1 ):s13 -s[address] [facility] (Lab) [address] [place], [address], 07/18/2022 14:05:31 07/19/19 23 07/18/2022 COMPR EHENS SERENA METAB OLIC PANEL sodium 139 mmol/ L 137-[address] [facility] (Lab) [address] [place], [address], 07/18/2022 14:22:17 07/19/19 23 07/18/2022 COMPR EHENS SERENA METAB OLIC PANEL potassium 4.0 mmol/ L 3.5-5. [address] [facility] (Lab) [address] [place], [address], 07/18/2022 14:22:17 07/19/19 23 07/18/2022 COMPR EHENS SERENA METAB OLIC PANEL chloride 107 mmol/ L 98-[address] [facility] (Lab) [address] [place], [address], 07/18/2022 14:22:17 07/19/19 23 07/18/2022 COMPR EHENS SERENA METAB OLIC PANEL carbon dioxide 26 mmol/ L 22-[address] [facility] (Lab) [address] [place], [address], 07/18/2022 14:22:17 07/19/19 23 07/18/2022 COMPR EHENS SERENA METAB OLIC PANEL anion gap 10.0 mmol/ L 14-[address] [facility] (Lab) [address] [place], [address], 07/18/2022 14:22:17 07/19/19 23 07/18/2022 COMPR EHENS SERENA METAB OLIC PANEL glucose 86 mg/dL 70-[address] [facility] (Lab) [address] [place], [address], 07/18/2022 14:22:17 07/19/19 23 07/18/2022 COMPR EHENS SERENA METAB OLIC PANEL BUN 15 mg/dL 8-[address] [facility] (Lab) [address] [place], [address], 07/18/2022 14:22:17 07/19/19 23 07/18/2022 COMPR EHENS SERENA METAB OLIC PANEL creatinine 0.64 mg/dL 0.66-1 [address] [facility] (Lab) [address] [place], [address], 07/18/2022 14:22:17 07/19/19 23 07/18/2022 COMPR EHENS SERENA METAB OLIC PANEL GFR >60 Refer ence Range : [place] ge GFR Healt hy Adult : >60 mL/mi n/1.7 3 m2 Chron ic Kidne y Disea se: 15-60 mL/mi n/1.7 3 m2 Kidne y Failu re: <15/m L/min /1.73 m2 www.n iddk. nih.g ov The MDRD study equat ion has not been valid ated in child lucy <18 years of age; pregn ant women ; the elder ly >85 years of age; or in some racia l or ethni c subgr oups, such as Hispa nics. Outsi de the valid ated fern eters , estim ated GFR is less accur ate, requi ring clini becky judgm ent on a case- by-ca se basis . Clini becky inter preta tion for other races and ages must be made by the clini hcaz. The MDRD study equat ion has not been valid ated for the evalu ation of serum creat inine relat ed to nutri nisreen l statu s or medic ation usage . For perso ns <18 years of age, a pedia tric GFR calcu lator is avail able on the [facility] websi te: https ://rm carrillo.rafael espana.o rg/pr ofess ional s/kdo qi/gf r_cal culat or Not Available [facility] (Lab) [address] [place], [address], 07/18/2022 14:22:17 07/19/19 23 07/18/2022 COMPR EHENS SERENA METAB OLIC PANEL alkaline phosphatase 67 U/L 38-126 Not Available [facility] (Lab) [address] [place], [address], 07/18/2022 14:22:17 07/19/19 23 07/18/2022 COMPR EHENS SERENA METAB OLIC PANEL alanine aminotransfe rase 38 U/L 0-35 high Not Available [facility] (Lab) [address] [place], [address], 07/18/2022 14:22:17 07/19/19 23 07/18/2022 COMPR EHENS SERENA METAB OLIC PANEL aspartate aminotransfe rase 33 U/L 15-37 Not Available [facility] (Lab) [address] [place], [address], 07/18/2022 14:22:17 07/19/19 23 07/18/2022 COMPR EHENS SERENA METAB OLIC PANEL bilirubin, total 0.40 mg/dL 0.20-[address] [facility] (Lab) [address] [place], [address], 07/18/2022 14:22:17 07/19/19 23 07/18/2022 COMPR EHENS SERENA METAB OLIC PANEL calcium 9.4 mg/dL 8.4-[address] [facility] (Lab) [address] [place], [address], 07/18/2022 14:22:17 07/19/19 23 07/18/2022 COMPR EHENS SERENA METAB OLIC PANEL total protein 6.2 g/dL 6.3-8. [address] [facility] (Lab) [address] [place], [address], 07/18/2022 14:22:17 07/19/19 23 07/18/2022 COMPR EHENS SERENA METAB OLIC PANEL albumin 3.8 g/dL 3.4-5. [address] [facility] (Lab) [address] [place], [address], 07/18/2022 14:22:17 07/19/19 23 07/18/2022 COMPR EHENS SERENA METAB OLIC PANEL globulin 2.4 g/dL 2.6-4. [address] [facility] (Lab) [address] [place], [address], 07/18/2022 14:22:17 07/19/19 23 07/18/2022 COMPR EHENS SERENA METAB OLIC PANEL A/G ratio 1.6 ratio 1.0-2. [address] [facility] (Lab) [address] [place], [address], 07/18/2022 14:22:17 07/19/19 23 07/18/2022 LIPID PANEL cholesterol 134 mg/dL 140-19 9 low NIH KALA NSUS RECOM MENDA TION FOR WALTER STERO L: ADULT CHILD LOW RISK: <200 <170 BORDE RLINE : <200- 239 ----- HIGH RISK: >240 >[address] [facility] (Lab) [address] [place], [address], 07/18/2022 14:22:19 07/19/19 23 07/18/2022 LIPID PANEL triglyceride s 208 mg/dL 0-150 high NIH KALA NSUS REPOR T RECOM MENDA TION FOR TRIGL YCERI JOSE DANIEL: ADULT CHILD LOW RISK: <150 ----- BODER LINE: 150-1 99 ----- HIGH RISK: >200 ----- Not Available [facility] (Lab) [address] [place], [address], 07/18/2022 14:22:19 07/19/19 23 07/18/2022 LIPID PANEL HDL cholesterol 43 mg/dL 40- Not Available [facility] (Lab) [address] [place], [address], 07/18/2022 14:22:19 07/19/19 23 07/18/2022 LIPID PANEL LDL cholesterol, calculated 49 mg/dL 0-130 NIH KALA NSUS REPOR T RECOM MENDA TIONS FOR LDL: ADULT CHILD LOW RISK <130 <110 (OPTI MAL LDL) <100 ----- BORDE RLINE : 130-1 59 ----- HIGH RISK: >160 >130 A TRIGL YCERI DE RESUL T >400 INVAL IDATE S THE CALCU LATIO N FOR LDL FRACT IONAT ION - THE LDL RESUL T WILL NOT BE REPOR KIMBER. Not Available [facility] (Lab) [address] [place], [address], 07/18/2022 14:22:19 07/19/19 23 07/18/2022 T4 FREE free T4 1.58 NG/dL 0.78-[address] [facility] (Lab) [address] [place], [address], 07/18/2022 14:39:34 07/19/19 23 07/18/2022 T3 FREE free T3 3.6 pg/mL 2.77-[address] [facility] (Lab) [address] [place], [address], 07/18/2022 14:39:35 07/19/19 23 07/18/2022 TSH thyroid-stim ulating hormone <0.015 uIU/m L 0.465- 4.[address] [facility] (Lab) [address] [place], [address], 07/18/2022 14:52:19 07/19/19 23 07/19/2022 INSUL IN insulin 20.7 uIU/m L 2.6-24 .9 Perfo rmed at: [facility] [address] [facility] [place] [address] Lab Direc tor: Nico hatfield PhD, Phone : [phone] [facility] (Lab) [address] [place], [address], 07/19/2022 13:11:22 07/19/1907/19/2022 THYRO GLOBU MCKENNA ANTIB RAFAELA thyroglobuli n antibody <1.0 IU/mL 0.0-0. 9 Thyro globu mckenna Antib rafaela measu red by Beckm an Coult er Metho dolog y Perfo rmed at: [facility] [address] [facility] [place] [address] Lab Direc tor: Nico hatfield PhD, Phone : [phone] [facility] (Lab) [address] [place], [address], 07/19/2022 14:13:17 09/23/19 23 09/22/2022 COMPR EHENS SERENA METAB OLIC PANEL sodium 141 mmol/ L 137-14 5 Not Available [facility] (Lab) [address] [place], [address], 09/22/2022 13:39:34 09/23/19 23 09/22/2022 COMPR EHENS SERENA METAB OLIC PANEL potassium 4.3 mmol/ L 3.5-5. 1 Not Available [facility] (Lab) [address] [place], [address], 09/22/2022 13:39:34 09/23/19 23 09/22/2022 COMPR EHENS SERENA METAB OLIC PANEL chloride 105 mmol/ L 98-[address] [facility] (Lab) [address] [place], [address], 09/22/2022 13:39:34 09/23/19 23 09/22/2022 COMPR EHENS SERENA METAB OLIC PANEL carbon dioxide 28 mmol/ L 22-[address] [facility] (Lab) [address] [place], [address], 09/22/2022 13:39:34 09/23/19 23 09/22/2022 COMPR EHENS SERENA METAB OLIC PANEL anion gap 12.3 mmol/ L 14-[address] [facility] (Lab) [address] [place], [address], 09/22/2022 13:39:34 09/23/19 23 09/22/2022 COMPR EHENS SERENA METAB OLIC PANEL glucose 94 mg/dL 70-[address] [facility] (Lab) [address] [place], [address], 09/22/2022 13:39:34 09/23/19 23 09/22/2022 COMPR EHENS SERENA METAB OLIC PANEL BUN 18 mg/dL 8-[address] [facility] (Lab) [address] [place], [address], 09/22/2022 13:39:34 09/23/19 23 09/22/2022 COMPR EHENS SERENA METAB OLIC PANEL creatinine 0.66 mg/dL 0.66-[address] [facility] (Lab) [address] [place], [address], 09/22/2022 13:39:34 09/23/19 23 09/22/2022 COMPR EHENS SERENA METAB OLIC PANEL GFR >60 Refer ence Range : [place] [facility] GFR Healt hy Adult : >60 mL/mi n/1.7 3 m2 Chron ic Kidne y Disea se: 15-60 mL/mi n/1.7 3 m2 Kidne y Failu re: <15/m L/min /1.73 m2 www.n iddk. nih.g ov The MDRD study equat ion has not been valid ated in child lucy <18 years of age; pregn ant women ; the elder ly >85 years of age; or in some racia l or ethni c subgr oups, such as Hisne nics. Outsi de the valid ated fern eters , estim ated GFR is less accur ate, requi ring clini becky judgm ent on a case- by-ca se basis . Clini becky inter preta tion for other races and ages must be made by the clini chaz. The MDRD study equat ion has not been valid ated for the evalu ation of serum creat inine relat ed to nutri nisreen l statu s or medic ation usage . For perso ns <18 years of age, a pedia tric GFR calcu lator is avail able on the NKF websi te: https ://rm espana.jac martell/pr ofess ional s/kdo qi/gf r_cal culat or Not Available [facility] (Lab) [address] [place], [address], 09/22/2022 13:39:34 09/23/19 23 09/22/2022 COMPR EHENS SERENA METAB OLIC PANEL alkaline phosphatase 71 U/L 38-126 Not Available [facility] (Lab) [address] [place], [address], 09/22/2022 13:39:34 09/23/19 23 09/22/2022 COMPR EHENS SERENA METAB OLIC PANEL alanine aminotransfe rase 38 U/L 0-35 high Not Available [facility] (Lab) [address] [place], [address], 09/22/2022 13:39:34 09/23/19 23 09/22/2022 COMPR EHENS SERENA METAB OLIC PANEL aspartate aminotransfe rase 32 U/L 15-37 Not Available [facility] (Lab) [address] [place], [address], 09/22/2022 13:39:34 09/23/19 23 09/22/2022 COMPR EHENS SERENA METAB OLIC PANEL bilirubin, total 0.60 mg/dL 0.20-[address] [facility] (Lab) [address] [place], [address], 09/22/2022 13:39:34 09/23/19 23 09/22/2022 COMPR EHENS SERENA METAB OLIC PANEL calcium 9.6 mg/dL 8.4-[address] [facility] (Lab) [address] [place], [address], 09/22/2022 13:39:34 09/23/19 23 09/22/2022 COMPR EHENS SERENA METAB OLIC PANEL total protein 7.1 g/dL 6.3-8. [address] [facility] (Lab) [address] [place], [address], 09/22/2022 13:39:34 09/23/19 23 09/22/2022 COMPR EHENS SERENA METAB OLIC PANEL albumin 4.6 g/dL 3.4-5. [address] [facility] (Lab) [address] [place], [address], 09/22/2022 13:39:34 09/23/19 23 09/22/2022 COMPR EHENS SERENA METAB OLIC PANEL globulin 2.5 g/dL 2.6-4. [address] [facility] (Lab) [address] [place], [address], 09/22/2022 13:39:34 09/23/19 23 09/22/2022 COMPR EHENS SERENA METAB OLIC PANEL A/G ratio 1.8 ratio 1.0-2. [address] [facility] (Lab) [address] [place], [address], 09/22/2022 13:39:34 09/23/19 23 09/22/2022 LIPID PANEL cholesterol 158 mg/dL 140-19 9 NIH KALA NSUS RECOM MENDA TION FOR WALTER STERO L: ADULT CHILD LOW RISK: <200 <170 BORDE RLINE : <200- 239 ----- HIGH RISK: >240 >[address] [facility] (Lab) [address] [place], [address], 09/22/2022 13:39:39 09/23/19 23 09/22/2022 LIPID PANEL triglyceride s 178 mg/dL 0-150 high NIH KALA NSUS REPOR T RECOM MENDA TION FOR TRIGL YCERI JOSE DANIEL: ADULT CHILD LOW RISK: <150 ----- BODER LINE: 150-1 99 ----- HIGH RISK: >200 ----- Not Available [facility] (Lab) [address] [place], [address], 09/22/2022 13:39:39 09/23/19 23 09/22/2022 LIPID PANEL HDL cholesterol 43 mg/dL 40- Not Available [facility] (Lab) [address] [place], [address], 09/22/2022 13:39:39 09/23/19 23 09/22/2022 LIPID PANEL LDL cholesterol, calculated 79 mg/dL 0-130 NIH KALA NSUS REPOR T RECOM MENDA TIONS FOR LDL: ADULT CHILD LOW RISK <130 <110 (OPTI MAL LDL) <100 ----- BORDE RLINE : 130-1 59 ----- HIGH RISK: >160 >130 A TRIGL YCERI DE RESUL T >400 INVAL IDATE S THE CALCU LATIO N FOR LDL FRACT IONAT ION - THE LDL RESUL T WILL NOT BE REPOR KIMBER. Not Available [facility] (Lab) [address] [place], [address], 09/22/2022 13:39:39 09/23/19 23 09/22/2022 T4 FREE free T4 1.35 NG/dL 0.78-[address] [facility] (Lab) [address] [place], [address], 09/22/2022 13:58:04 09/23/19 23 09/22/2022 T3 FREE free T3 3.5 pg/mL 2.77-[address] [facility] (Lab) [address] [place], [address], 09/22/2022 13:58:09 09/23/19 23 09/22/2022 TSH thyroid-stim ulating hormone <0.015 uIU/m L 0.465- 4.[address] [facility] (Lab) [address] [place], [address], 09/22/2022 13:58:30 09/23/19 23 09/22/2022 HEMOG LOBIN A1C HA1C 5.4 % 4.0-6. 0 Diabe karuna Scree luca Crite moisés: <5.7% Consi stent with absen ce of diabe karuna 5.7-6 .4% Consi stent with incre ased risk for diabe karuna (pred iabet es) >OR=6 .5% Consi stent with diabe karuna REFER ENCE: Diabe karuna Care 2016, 39(Hager ppl.1 ):s13 -s22 [address] [facility] (Lab) [address] [place], [address], 09/22/2022 14:25:08 09/23/19 23 09/23/2022 INSUL IN insulin 28.2 uIU/m L 2.6-24 .9 high Perfo rmed at: [facility] [address] [place] [address] Lab Direc tor: Nico hatfield PhD, Phone : [phone] [facility] (Lab) [address] [place], [address], 09/23/2022 10:12:44 09/23/19 23 09/23/2022 THYRO GLOBU MCKNENA ANTIB RAFAELA thyroglobuli n antibody <1.0 IU/mL 0.0-0. 9 Thyro globu mckenna Antib rafaela measu red by Beckm an Coult er Metho dolog y Perfo rmed at: [facility] [address] [place] [address] Lab Direc tor: Nico hatfield PhD, Phone : [phone] [facility] (Lab) [address] [place], [address], 09/23/2022 14:13:26 12/24/19 21 12/23/2020 US, thyro id No observ ation record ed. [id number], [place], [address], 05/04/2022 00:55:01 12/24/19 US, head + neck, soft tissu e [facility] [address] [place] [address] Patien t Name: PARAMJIT GONZALES Access ion #: [id number] Sex: F : 1969 1 Locati on: RA2 Attend ing Physic nick: ARMIDA LANDIS Orderi ng Physic nick: ARMIDA LANDIS Exam Date: 2020 1:13 PM Exam Name: US NECK/H EAD SOFT TISSUE Admitt ing Diagno sis(es ): RADIOL OGY REPORT - FINAL EXAM: US NECK/H EAD SOFT TISSUE HISTOR Y: postop erativ e hypoth yroidi sm COMPAR DENZEL: None. TECHNI QUE: Ultras ound evalua tion of the thyroi d gland was perfor med. FINDIN GS: Right thyroi d lobe: Absent . Again noted is a stable tiny area of echoge lesley materi al within the right thyroi d fossa which may relate to scar or minima l residu al tissue , this could be evalua kimber with a nuclea r I 123 study if of clinic al import ance. Left thyroi d lobe: Absent Page 1 of 2 [facility] Patien t Name: PARAMJIT GONZALES Access ion #: [id number] Sex: F : 1969 1 Exam Date: 2020 1:13 PM Exam Name: US NECK/H EAD SOFT TISSUE Admitt ing Diagno sis(es ): Isthmu s: The thyroi d isthmu s measur es mm in width. The thyroi d parenc hyma is homoge neous withou t solid nodule s or cystic lesion s. No abnorm al color Dopple r blood flow or suspic ious calcif icatio ns. IMPRES NARA: See above. Create d and electr onical ly signed by: Marin landaverde MD Signed Date: 2020 1:52 PM (CT) Dictat ed by: Marin landaverde MD DD: 2020 1:52 PM (CT) DT: 2020 1:52 PM (CT) Page 2 of [id number] [facility] (Imaging) [address] [place], [address], 05/04/2022 00:55:01 10/25/20 22 US, head + neck, soft tissu e [facility] [address], [place] [address] Martir gonzales Name: PARAMJIT GONZALES Access ion #: [id number] Sex: F : 1969 6 Locati on: RA2 Attend ing Physic nick: ARMIDA LANDIS Orderi ng Physic nick: ARMIDA LANDIS Exam Date: 2021 8:06 AM Exam Name: US NECK/H EAD SOFT TISSUE Admitt ing Diagno sis(es ): RADIOL OGY REPORT - FINAL EXAM: US NECK/H EAD SOFT TISSUE HISTOR Y: postop erativ e hypoth yroidi sm 51-yea r-old female with hypoth yroidi sm status post comple te thyroi dectom y in 2011 for papill martinez thyroi d cancer . COMPAR DENZEL: Ultras ound examin ation dated 2020. TECHNI QUE: Ultras ound examin ation of the thyroi d area was perfor med. FINDIN GS: Postop erativ e change s of total thyroi dectom y are re-naveed ntifie d. There may be a small amount of residu al right thyroi d tissue versus artifa ctual appear ance relate d to scarri ng in the thyroi d bed. IMPRES NARA: Page 1 of 2 [facility] Martir gonzales Name: PARAMJIT GONZALES Access ion #: [id number] Sex: F : 1969 6 Exam Date: 2021 8:06 AM Exam Name: US NECK/H EAD SOFT TISSUE Admitt ing Diagno sis(es ): Stable postop erativ e change s of total thyroi dectom y. Create d and electr onical ly signed by: Tomas regalado MD Signed Date: 2021 8:35 AM (CT) Dictat ed by: Tomas regalado MD DD: 2021 8:35 AM (CT) DT: 2021 8:35 AM (CT) Page 2 of [id number] [facility] (Imaging) [address] [place], [address], 05/04/2022 00:55:01 12/29/19 22 12/28/2021 US, thyro id No observ ation record ed. [id number] [facility] Add On Lab Orders [address] [place], [address], 05/04/2022 00:55:01 08/17/19 23 US, head + neck, soft tissu e [facility] [address] [facility] [place] [address] Patien t Name: PARAMJIT GONZALES Access ion #: [id number] Sex: F : 1969 7 Locati on: RA2 Attend ing Physic nick: ARMIDA LANDIS Orderi ng Physic nick: ARMIDA LANDIS Exam Date: 9:48 AM Exam Name: US NECK/H EAD SOFT TISSUE Admitt ing Diagno sis(es ): RADIOL OGY REPORT - FINAL EXAM: US NECK/H EAD SOFT TISSUE HISTOR Y: postop erativ e hypoth yroidi sm COMPAR DENZEL: 2021 TECHNI QUE: Ultras ound evalua tion of the thyroi d gland was perfor med. FINDIN GS: Total thyroi dectom y residu als noted. On the right there is vague soft tissue measur ing 1.4 x 0.4 x 0.5. No residu al tissue is noted on the left or in the area of the isthmu s. Page 1 of 2 [facility] Patibianka t Name: PARAMJIT GONZALES Access ion #: [id number] Sex: F : 1969 7 Exam Date: 9:48 AM Exam Name: US NECK/H EAD SOFT TISSUE Admitt ing Diagno sis(es ): IMPRES NARA: Possib le residu al thyroi d tissue versus scarri ng in the area of the right thyroi d bed. Recomm end correl ation with a radioa ctive iodine uptake test. Create d and electr onical ly signed by: Marin landaverde MD Signed Date: 1:02 PM (CT) Dictat ed by: Marin landaverde MD DD: 1:02 PM (CT) DT: 1:02 PM (CT) Page 2 of [address] (Imaging) [address] [place], [address], 08/24/2022 11:44:48 08/17/19 23 08/16/2022 US, thyro id No observ ation record ed. [address] [place], [address], 08/24/2022 11:44:48 02/14/20 24 02/13/2024 imagi ng/di agnos tic resul t No observ ation record ed. [place] [address], [place], [address], 02/14/2024 10:51:24 Result Notes None recorded. Problems Name Problem SNOMED Code Status Onset Date Resolution Date Notes Provider Name and Address Organization Details Recorded Time Postoperative hypothyroidis m 11286616 Active 2022 Armida Landis MD [address], [address] , [employer] 3 11:54:13 Impaired glucose tolerance 8358459 Active 2022 Armida Landis MD [address] [place] [address], [address] , [employer] 3 11:56:21 Hypertriglyce ridemia 500073362 Active 2022 Armida Landis MD [address] [facility], [place], [address] , [employer] 3 11:57:33 Vitamin B12 deficiency (non anemic) 60521398 Active 2022 Armida Landis MD [address], [place], [address] , [facility] [employer] 3 19:15:47 Hypothyroidis m 72260584 Active 2018 Not Available [facility] 3 00:49:41 Impaired fasting glycemia 954861924 Active 2022 Armida Landis MD [address], [place], [address] , [place] [employer] 3 14:22:46 Problem Notes None recorded. Procedures Surgical History None recorded. Imaging Results Imaging Date Name Status LastModified by Organiz ation Details LastModified Time 12/23/2020 US, thyroid completed [id number], [place], [address], 05/04/2022 00:55:01 12/23/2020 US, head + neck, soft tissue completed [id number] [facility] (Imaging) [address] [place], [address], 05/04/2022 00:55:01 12/28/2021 US, head + neck, soft tissue completed [id number] [facility] (Imaging) [address] [place], [address], 05/04/2022 00:55:01 12/28/2021 US, thyroid completed [id number] [facility] Add On Lab Orders [address] [place], [address], 05/04/2022 00:55:01 08/16/2022 US, head + neck, soft tissue completed [id number] [facility] (Imaging) [address] [place], [address], 08/24/2022 11:44:48 08/16/2022 US, thyroid completed [id number] [facility] [address], [place], [address], 08/24/2022 11:44:48 02/13/2024 imaging/diag nostic result active [facility] [address] [facility] [address], [place], [address], 02/14/2024 10:51:24 Procedure Notes None recorded. Medical Equipment None Reported. Allergies Allergen ID Allergen Name Allergen Category Reaction Reaction Severity Criticality Documentation Date Start Date Code Code System Note Provider Name and Address Organization Details Recorded Time 777 Product containin g penicilli n and antibioti c (product) medicatio n Not available Not available Not available 05/04/2022 91495 05 SNOMED Not Available [facility] 3 00:54:41 778 amoxicill in medicatio n Not available Not available Not available 05/04/2022 723 RxNorm Not Available [facility] 3 00:54:41 Medications Name Sig Start Date Stop Date Status Note LastModified by Organization Details LastModified Time Prescriptio n - Prior Authorizati on Request active Not Available Not Available N ot Available prednisone 10 mg tablet TAKE 4 TABLETS BY MOUTH ONCE DAILY FOR 3 DAYS THEN 3 TABS ONCE DAILY FOR 3 DAYS THEN 2 TABS ONCE DAILY FOR 3 DAYS THEN 1 TABLET ONCE DAILY F 07/29 completed Not Available Not Available Not Available doxycycline hyclate 100 mg capsule TAKE 1 CAPSULE BY MOUTH TWICE DAILY FOR 10 DAYS 05/13 completed Not Available Not Available Not Available clindamycin HCl 300 mg capsule 10/08 completed Not Available Not Available Not Available cetirizine 10 mg tablet TAKE 1 TABLET BY MOUTH ONCE DAILY 05/13 completed Not Available Not Available Not Available azithromyci n 250 mg tablet 10/08 completed Not Available Not Available Not Available Synthroid 150 mcg tablet TAKE 1 TABLET EVERY DAY IN THE MORNING FOR POSTOPERA TIVE HYPOTHYRO IDISM 05/03 completed Not Available Not Available Not Available phentermine 15 mg capsule TAKE 1 CAPSULE BY MOUTH EVERY MORNING 2022 active Not Available Not Available Not Avai lable levothyroxi ne 100 mcg tablet 07/29 completed Not Available Not Available Not Available cyanocobala min (vit B-12) 1,000 mcg/mL injection solution ADMINISTE R 1 ML UNDER THE SKIN EVERY WEEK IN THE MORNING active Not Available Not Available No t Available oseltamivir 75 mg capsule 07/29 completed Not Available Not Available Not Available levothyroxi ne 125 mcg tablet TAKE 1 TABLET BY MOUTH ONCE DAILY IN THE MORNING FOR 90 DAYS 04/19 completed Not Available Not Available Not Available Synthroid 112 mcg tablet Take 1 tablet every day by oral route in the morning for 90 days. 2022 active Not Available Not Available Not Avai lable estradiol 0.5 mg tablet TAKE 1 TABLET BY MOUTH ONCE DAILY IN THE MORNING FOR 30 DAYS 07/29 completed Not Available Not Available Not Available azelastine 137 mcg (0.1 %) nasal spray USE 1 SPRAY(S) IN EACH NOSTRIL TWICE DAILY DIRECTED 05/13 completed Not Available Not Available Not Available methylpredn isolone 4 mg tablets in a dose pack 10/08 completed Not Available Not Available Not Available estradiol 0.0375 mg/24 hr semiweekly transdermal patch 11/06 completed Not Available Not Available Not Available fluticasone propionate 50 mcg/actuati on nasal spray,suspe nsion USE 2 SPRAY(S) IN EACH NOSTRIL ONCE DAILY 05/13 completed Not Available Not Available Not Available metformin ER 500 mg tablet,exte nded release 24 hr TAKE 1 TABLET BY MOUTH EVERY DAY WITH LARGEST MEAL active Not Available Not Available No t Available doxycycline hyclate 100 mg tablet 10/08 completed Not Available Not Available Not Available Synthroid 137 mcg tablet Take 1 tablet every day by oral route in the morning for 90 days. 05/03 completed Not Available Not Available Not Available cholecalcif vicenta (vitamin D3) 250 mcg (10,000 unit) capsule TAKE 1 CAPSULE BY MOUTH ONCE DAILY active Not Available Not Available No t Available calcium 2018 active Not Available Not Available Not Avai lable Vitamin D2 2018 active Not Available Not Available Not Avai lable TRUEplus Insulin 1 mL 31 gauge x 5/16 syringe USE TO INJECT BEFORE-12 SUBCUTANE OUS ONCE WEEKLY FOR 90 DAYS active Not Available Not Available No t Available Vascepa 1 gram capsule active Not Available Not Available Not Available Virtussin AC 10 mg-100 mg/5 mL oral liquid 10/08 completed Not Available Not Available Not Available Vitals Date Recorded Body mass index (BMI) Body mass index (BMI) Body height Body height Oxygen saturation Oxygen saturation in Arterial blood by Pulse oximetry Oxygen saturation Oxygen saturation in Arterial blood by Pulse oximetry Heart rate Heart rate Body temperature Body temperature Body weight Body weight Systolic blood pressure Diastolic blood pressure Systolic blood pressure Diastolic blood pressure Provider Name and Address Organization Details Last Updated DateTime 3 28.1 kg/m2 29.5 kg/m2 152.4 cm 152.4 cm 98 % 98 % 99 % 99 % 74 /min 66 /min 98.7 [degF] 98 [degF] 79129.3 g 14066.4 5 g 124 mm[Hg] 74 mm[Hg] 120 mm[Hg] 80 mm[Hg] Not Available [facility] 3 00:48:55 Date Recorded Body height Body mass index (BMI) Body weight Body temperature Heart rate Systolic blood pressure Diastolic blood pressure Provider Name and Address Organization Details Last Updated DateTime 3 152.4 cm 25.6 kg/m2 24847.6 g 97.6 [degF] 73 /min 128 mm[Hg] 74 mm[Hg] Haley Hu CMA [employer] 3 11:32:31 Date Recorded Body height Body mass index (BMI) Body weight Heart rate Respiratory rate Systolic blood pressure Diastolic blood pressure Provider Name and Address Organization Details Last Updated DateTime 3 152.4 cm 26.2 kg/m2 29069.3 8 g 74 /min 96 /min 130 mm[Hg] 83 mm[Hg] Kierra Day [employer] 3 14:12:56 Social History Question Answer Notes LastModified by Organizat ion Details LastModified Time Tobacco Smoking Status Never Smoker Not Available [facility] 05/04/2022 00:44:55 What Is Your Level Of Alcohol Consumption? Occasional [id number] Information not available 05/04/2022 What Is Your Level Of Caffeine Consumption? Moderate [id number] Information not available 05/04/2022 How Much Tobacco Do You Chew? None [id number] Information not available 05/04/2022 In The 14 Days Before Symptom Onset, Have You Had Close Contact With A Laboratory-confir med COVID-19 While That Case Was Ill? No [id number] Information not available 05/04/2022 In The 14 Days Before Symptom Onset, Have You Had Close Contact With A Person Who Is Under Investigation For COVID-19 While That Person Was Ill? No [id number] Information not available 05/04/2022 What Type Of Diet Are You Following? REGULAR [id number] Information not available 05/04/2022 Which Illicit Or Recreational Drugs Have You Used? None [id number] Information not available 05/04/2022 Do You Or Have You Ever Used E-cigarettes Or Vape? 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 [id number] Information not available 05/04/2022 Do You Or Have You Ever Used Smokeless Tobacco? Never Used Smokeless Tobacco MIGRATION.[id number] Information not available 05/04/2022 How Much Tobacco Do You Smoke? No [id number] Information not available 05/04/2022 Do You Use Any Illicit Or Recreational Drugs? No [id number] Information not available 05/04/2022 Have You Recently Traveled Abroad? No [id number].[id number] Information not available 05/04/2022 Do You Have Any Dietary Restrictions? No [id number] Information not available 05/04/2022 Sex: Female Functional Status None recorded. Mental Status None recorded. Family History Nothing Reported. Medical History Condition Response HYPOTHYROIDISM Y Gynecological HistoryNo gynecological history recorded. Obstetrics History GPAL:G 0 P 0 0 0 0 Past Encounters Encounter ID Performer Location Encounter Start Date Encounter Closed Date Diagnosis/Indication Diagnosis SNOMED-CT Code Diagnosis ICD10 Code Diagnosis Note [id number] [facility] [address] [place] [address] 05/11/2020 00:00:00 05/11/2020 11:23:50 [id number] [facility] [address] [place] [address] 09/22/2020 00:00:00 09/22/2020 13:11:56 [id number] [facility] [address] [place] [address] 04/19/2021 00:00:00 04/19/2021 10:13:10 [id number] [facility] [address] [place] [address] 10/25/2021 00:00:00 10/25/2021 12:14:59 [id number] Armida Landis MD [facility] [address] [place] [address] 05/13/2022 10:53:06 05/13/2022 12:04:15 Postoperative hypothyroidism 86813023 E89.0 FT4 high and patient has had up to 20 pound weight loss- she just dropped her synthroid down to 112 mcg one week ago and feeling good so far (she was on 137 mcg dosage) - her TG panel is negative and she is in remission from her papillary thyroid ca hx. She was reminded to take her synthroid on empty stomach with glass of water and wait one hour to eat or have her coffee in morning and up to 4 hours if ever taking any heartburn or reflux medication s to help optimize absorption . Discussed paleo like diet with restrictio n of GMOs to help with energy and to optimize absorption of vitamins and minerals and reduce inflammati on. Educated a bout weight management [id number] Z71.3 Continue on low dose phentermin e- she has had up to 20 pound weight loss and BMI now close to ideal range. Not only has this helped with weight management -she has had improvemen t with mood, energy, focus and sleep. Impaired g lucose tolerance [id number] R73.02 Continue on metformin once daily with largest meal. Discussed carb counting and how to read food labels. Recommende d patient to utilize the diabetesfo [employer] from the ADA website to help with food preparatio n as this presents ideal carb content per meal so this will make carb counting much easier for patient. Recommende d she incorporat e natural insulin hot room attendant s such as pears, apples, cinnamon, david and sweet potatoes to help mobilize her endogenous insulin. Recommende d up to 150 minutes of moderate level activity/e xercise weekly. Hypertriglyceridemia [id number] E78.1 Recommende d patient trial on lower dose vascepa-sh e has script at home- start at one capsule with breakfast and one capsule with dinner. Repeat lipids prior to return. Spent up to 25 minutes preparing to see the patient (eg, review of tests), obtaining and/or reviewing separately obtained history, performing a medically appropriat e examinatio n and evaluation , counseling and educating the patient, ordering medication s, tests, along with documentin g clinical informatio n in the electronic health record, independen robyny interpreti ng results and communicat ing results to the patient. RTC in 6 months. Patient was provided a handwritte n lab order which contains our fax number. If she chooses to go outside of the [facility] system to obtain labwork she was advised to provide our fax number and my informatio n to the lab she will be obtaining labwork from in order to have her labs properly forwarded over for me to review so there is no loss of follow up due to use of outside network. She was also advised to contact our clinic informing us that she has completed her labwork so we are aware we will need to reach out to the appropriat e laboratory to request her results be forwarded to us so I might have the ability to review and make further medical decision making in her case. She voiced understand ing. [id number] Armida Landis MD [facility] [address] [place] [address] 10/14/2022 13:52:13 10/14/2022 14:34:03 Postoperative hypothyroidism [id number] E89.0 FT4 now in ideal range- TSH suppressed from multivitam ins/biotin . Continue on synthroid 112 mcg as her TG panel is negative and she is in remission from her papillary thyroid ca hx. She was reminded to take her synthroid on empty stomach with glass of water and wait one hour to eat or have her coffee in morning and up to 4 hours if ever taking any heartburn or reflux medication s to help optimize absorption . Discussed paleo like diet with restrictio n of GMOs to help with energy and to optimize absorption of vitamins and minerals and reduce inflammati on. Impaired f asting glycemia [id number] R73.01 A1C in range- 5.4%- continue on metformin once daily with largest meal. Recommende d she incorporat e natural insulin hot room attendant s such as pears, apples, cinnamon, david and sweet potatoes to help mobilize her endogenous insulin. Recommende d up to 150 minutes of moderate level activity/e xercise weekly. Vitamin B1 2 deficiency (non anemic) [id number] E53.8 Continue on B12 injections weekly as she feels these have helped with her energy and focus. Educated a bout weight management [id number] Z71.3 Continue on low dose phentermin e- she has had up to 20 pound weight loss and BMI now close to ideal range. Not only has this helped with weight management -she has had improvemen t with mood, energy, focus and sleep. No concerns with palpitatio ns or high blood pressure. Spent up to 25 minutes preparing to see the patient (eg, review of tests), obtaining and/or reviewing separately obtained history, performing a medically appropriat e examinatio n and evaluation , counseling and educating the patient, ordering medication s, tests, along with documentin g clinical informatio n in the electronic health record, independen tly interpreti ng results and communicat ing results to the patient. Patient can be followed by PCP - she/he is aware of my resignatio n and last day of December 16. If needed his/her PCP can refer patient to another endocrinol ogist in the area. All questions /concerns answered and refills necessary at visit today. Health Concerns Section Related Observation LastModified by Organization Detai ls LastModified Time None Recorded Concern Status LastModified by Organization Details LastModified Time None Recorded Advance Directives Directive None Recorded Payers Encounter Date Sequence Insurance Name Policy Number Policy Salter Covered Member ID Salter Member ID Guarantor Name 05/13/2022 1 [employer] [id number] Alicia Jones [id number] Alicia Jones 05/13/2022 2 [place] [id number] Placido Robert [id number] Alicia Jones 10/14/2022 1 [employer] [id number] Alicia Jones [id number] Alicia Jones 10/14/2022 2 [place] [id number] Placido Jones [id number] Alicia Jones Notes Date Note Type Note Provider Name and Address Organization Details Recorded Time 05/13/2022 text/html 52 yo female com e in for follow up in management of postoperative hypothyroidism, impaired fasting glucose, and weight management. last seen in Oct at this time we continued synthroid 150 mcg daily. since that time we dropped synthroid to 137 mcg daily. we continued metformin and added vascepa. based on labwork from March we recommended she drop her synthroid down to 112 mcg daily (she had lost 20 pounds since her last visit) She has been on the 112 mcg for the past week. She had a liver u/s at [facility] and she was found to have fatty liver disease. She did really well on the phentermine- she had great focus in the afternoon. She has lost 20 pounds. She had no issues with craving sweets. She had no palpitations, high blood pressure or concern with sleep. She had less anxiety and her focus was better. lab from 03/22/22:a1c 5.4%TSH of 0.01 uIU/mlFT4 of 2.0 pg/mlTG pkngxehzU02/folate normalinsulin 26.9 uU/mlglucose 90 mg/dLCr normalALT 31 U/L140/206/44/69 Armida Landis MD [address] [facility], [facility] [address], [place], [address], [place] [facility] 05/13/2022 12:28:23 10/14/2022 text/html 52 yo female com es in for follow up in management of postoperative hypothyroidism, impaired fasting glucose and weight management. last seen in May at that time we had dropped her synthroid down to 112 mcg daily as she had lost weight. we continued phentermine for weight management and we continued metformin for impaired fasting glucose She is feeling good overall-B12 has helped with energy. She has no palpitations or high blood pressure on phentermine and weight has maintained- she has lost 20 pounds and kept 20 pounds off. She is tolerating metformin well and aware she needs to stay consistent with meals to avoid any hypoglycemia or fatigue. labs from 09/25:a1c 5.4%TSH <0.015 uIU/mlFT4 of 1.35 ng/dLFT3 of 3.5 pg/mLinsulin 28.2 uIU/mlTG panel negglucose 94 mg/dLCr normalLFT normal Armida Landis MD [address] [facility] [address], [place], [address], [facility] 10/14/2022 14:35:59 OBGyn Episode No OBEpisode recorded.
== END 2024-04-09 08:01 | disposition home or self-care (01) ==
LOC: ANHIMG 08:02
PROVIDERS: PCP Family Medicine; Visit Provider Family Medicine
DX: D75.1 Secondary polycythemia (principal); R74.8 Abnormal levels of other serum enzymes; K76.0 Fatty (change of) liver, not elsewhere classified; K80.20 Calculus of gallbladder without cholecystitis without obstruction
CPT/HCPCS: 76705

== ENCOUNTER 2024-04-09 09:30 | Outpatient (CLI) | payer OTHER, BC, SELFPAY ==
--- OUTSIDE RECORDS SUMMARY | 2024-04-09 10:04 | XMS_ITS | Referral Summary ---
Author Organization [facility] Medical Office Building [address] Address [address] [place] [address] Care Team Providers Care Head Batcher Name Role Phone Leonila Young SERGIO Primary Care Provider [phone] Allergies Active Allergy Reactions Criticality Noted Date [...] 04/10/2018 Assessment & Plan (04/10/2018 3:18 PM OPERATIONS ARCHITECT): After review of the case with , [...] recommended Assessment & Plan (05/01/2019 9:50 AM OPERATIONS ARCHITECT): Discussed/ordered labs, Condition is improving, encouraged healthy, low carbohydrate lifestyle and at least 150min/week of exercise, continue going to the gym and eating healthy Assessment & Plan (04/03/2019 11:48 AM OPERATIONS ARCHITECT): Healthy, low carbohydrate lifestyle and exercise for 150min/week recommended Assessment & Plan (12/26/2018 12:01 PM CDT): Healthy, low carbohydrate diet and exercise for 150min/week recommended Postoperative hypothyroidism 12/31/2012 Overview (06/08/2016): Hypothyroidism, postop Resolved Problems Problem Noted Date Diagnosed Date Resolved Date Malignant neoplasm of thyroid gland 04/03/2019 05/01/2019 Hypothyroidism 10/08/2018 07/12/2021 Assessment & Plan (05/01/2019 9:59 AM OPERATIONS ARCHITECT): Today we are following up on her anxiety. Since starting the new dose of levothyroxine 112mcg, she has been feeling much less anxiety. She does not want anything for anxiety. Assessment & Plan (04/03/2019 11:47 AM OPERATIONS ARCHITECT): Pt sees endocrinology, but their office canceled [...] cancer Assessment & Plan (05/01/2019 9:48 AM OPERATIONS ARCHITECT): Pt had thyroid removed. Dietary counseling and [...] on file Legal Sex Female 10:47 AM OPERATIONS ARCHITECT Gender Identity Not on file Sexual Orientation Not on file Last Filed Vital Signs Vital Sign Reading Time Taken Comments Blood Pressure 131/87 10/04/2019 9:22 AM CDT Pulse 97 10/04/2019 9:22 AM CDT Temperature 36.1 ??C (96.9 ??F) 10/04/2019 9:22 AM CD T Respiratory Rate 12 05/01/2019 9:33 AM OPERATIONS ARCHITECT Oxygen Saturation 97% 10/04/2019 9:22 AM CDT Inhaled Oxygen Concentration - - Weight 65.3 kg (144 lb) 10/05/2020 12:52 PM CDT Height 152.4 cm (5') 04/15/2021 2:13 PM OPERATIONS ARCHITECT Body Mass Index 28.12 10/05/2020 12:52 PM [...] Most Recently Relevant to Health Maintenance Insurance [employer] [place] [facility] [address] [id number] Care Teams Head Batcher Relationship Specialty Start Date End Date Leonila Young NP PCP - General Family Medicine 02/21/19
--- OUTSIDE RECORDS SUMMARY | 2024-04-09 10:04 | XMS_ITS | Clinical Summary ---
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
--- OUTSIDE RECORDS SUMMARY | 2024-04-09 10:04 | XMS_ITS | Clinical Summary ---
Author Organization [facility] Medical Office Building B Address [address] [place] [address] Care Team Providers Care Fastener Sewing Machine Operator Name Role Phone Leonila Young SERGIO Primary Care Provider [phone] Allergies Active Allergy Reactions Criticality Noted Date [...] 04/10/2018 Assessment & Plan (04/10/2018 3:18 PM RN INTERNAL MEDICINE): After review of the case with , [...] recommended Assessment & Plan (05/01/2019 9:50 AM RN INTERNAL MEDICINE): Discussed/ordered labs, Condition is improving, encouraged healthy, low carbohydrate lifestyle and at least 150min/week of exercise, continue going to the gym and eating healthy Assessment & Plan (04/03/2019 11:48 AM RN INTERNAL MEDICINE): Healthy, low carbohydrate lifestyle and exercise for 150min/week recommended Assessment & Plan (12/26/2018 12:01 PM CDT): Healthy, low carbohydrate diet and exercise for 150min/week recommended Postoperative hypothyroidism 12/31/2012 Overview (06/08/2016): Hypothyroidism, postop Resolved Problems Problem Noted Date Diagnosed Date Resolved Date Malignant neoplasm of thyroid gland 04/03/2019 05/01/2019 Hypothyroidism 10/08/2018 07/12/2021 Assessment & Plan (05/01/2019 9:59 AM RN INTERNAL MEDICINE): Today we are following up on her anxiety. Since starting the new dose of levothyroxine 112mcg, she has been feeling much less anxiety. She does not want anything for anxiety. Assessment & Plan (04/03/2019 11:47 AM RN INTERNAL MEDICINE): Pt sees endocrinology, but their office canceled [...] cancer Assessment & Plan (05/01/2019 9:48 AM RN INTERNAL MEDICINE): Pt had thyroid removed. Dietary counseling and [...] on file Legal Sex Female 10:47 AM RN INTERNAL MEDICINE Gender Identity Not on file Sexual Orientation [...] T Respiratory Rate 12 05/01/2019 9:33 AM RN INTERNAL MEDICINE Oxygen Saturation 97% 10/04/2019 9:22 AM CDT Inhaled Oxygen Concentration - - Weight 65.3 kg (144 lb) 10/05/2020 12:52 PM CDT Height 152.4 cm (5') 04/15/2021 2:13 PM RN INTERNAL MEDICINE Body Mass Index 28.12 10/05/2020 12:52 PM [...] Most Recently Relevant to Health Maintenance Insurance [employer] [place] [facility] [address] [id number] Care Teams Fastener Sewing Machine Operator Relationship Specialty Start Date End Date Leonila Young NP PCP - General Family Medicine 02/21/19
[2024-04-09 18:50] LABS: Hematocrit 48.1 % (37.0-47.0); Hemoglobin 15.5 g/dL (12.0-15.0); Mean Corpuscular HGB Conc 32.2 g/dl (32-36); Mean Corpuscular Hemoglobin 28.4 pg (26-34); Mean Corpuscular Volume 88.1 fl (80-100); Platelet Count Result 305 k/mm3 (150-375); Red Blood Count 5.46 M/mm3 (4.2-5.4); Red Cell Distribution Width 13.5 % (11.5-14.5); White Blood Count 7.4 K/mm3 (4.5-10.0)
== END 2024-04-09 09:31 | disposition home or self-care (01) ==
PROVIDERS: PCP Family Medicine; Visit Provider Family Medicine
DX: R74.8 Abnormal levels of other serum enzymes (principal); D75.1 Secondary polycythemia
CPT/HCPCS: 36415; 81270; 85027

== ENCOUNTER 2024-05-22 10:00 | Outpatient (RCR) | payer OTHER, BC, SELFPAY ==
--- NOTE | 2024-04-15 10:11 | OPREHPOC ---
Outpatient Therapy Plan of Care This is a Multidisciplinary Plan of Care that may contain components documented by all disciplines (PT, OT, and ST.) PT Problem 1 PT Problem #1 Knowledge Deficit PT Goal 1 Goal / Goal Update Emanuel with HEP Target Visit 4 PT Goal 2 Goal / Goal Update Report no pain greater than 1/10 for 2 consecutive weeks Target Visit 8 PT Problem 2 PT Problem #2 Impaired Range of Motion PT Goal 1 Goal / Goal Update 1. Demonstrate no restriction luz to piriformis musculature 2. Improve luz hip abduction ROM to 45 degrees Target Visit 8 PT Problem 3 PT Problem #3 Impaired Strength PT Goal 1 Goal / Goal Update 1. Improve luz hip abduction to 4+/5 to improve lateral pelvic stability with gait and ADLs 2. Improve lower abdominal strength to 4/5 to improve core stability and lumbar spine stability Target Visit 8
--- NOTE | 2024-04-15 10:11 | PTOPEVAL1 ---
Assessment and note entered by Michael Canales, PT Evaluation Information Assessment Status Evaluation ICD-10 Condition Codes (PT) Pain in low back M54.50 Onset October 2023 Subjective Information Reports that she is getting pain in the low back and pain is increased with sitting activity. 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 She will occasionally get pain in the the right hip especially when she goes to get up from sitting for a long time. When she has been up and going she gets pain relief. She has been having issues for about 6 months. She gets pain with rolling over in bed. Reported Pain Level Pain Score 1: Self Report Assessment PT Clinical Summary Patient presents with signs and symptoms consistent with discogenic irritation of lumbar spine. Patient presents with lateral hip weakness and core instability. Will benefit from skilled therapy to address these deficits for core ergonomic and postural strengthening. Plan of Care Interventions Electrical Stimulation,Gait Training,Hot Pack/Cold Pack,Manual Therapy,Neuro Re-education, Therapeutic Activities,Therapeutic Exercise PT Services Indicated Yes Treatment Frequency and 2x/week for 8 visits Duration These treatments will address the objective and functional deficits as defined above. The patient will be advanced safely and appropriately in order for the patient to progress towards his/her prior level of function. Additional exercises will be introduced and as well as a comprehensive home exercise program upon discharge, if needed, ?to ensure carryover of functional gains achieved in the clinic. This treatment plan has been reviewed and agreement upon by the patient.
--- NOTE | 2024-05-13 10:11 | PCPTNOTE ---
Patient cancelled appointment secondary to being out of town this date.
--- NOTE | 2024-05-16 10:27 | PCPTNOTE ---
No call No show, reason unknown. AKDavid
--- NOTE | 2024-05-22 10:53 | PTOPDC ---
Assessment and note entered by Katie Delvalle, PT Assessment Status Discharge ICD-10 Condition Codes (PT) Pain in low back M54.50 Onset October 2023 Subjective Information have been working on sitting up straighter and using a small 1/2 ball/balance disc to sit on-- it helps; have been doing the exercises; feeling better and not as much pain; Reported Pain Level Pain Score Self Report Additional Pain Score Comments bothersome, stiffness in back, only a little R hip pain pain range in the past week 0-4/10, not that bad increase pain: when first wake up in AM, sit too long on couch-- 2 hours watching TV; decrease pain: ibuprofen, over the counter meds- 2x/wk, heat; Assessment PT Clinical Summary Alicia has received 6 PT sessions. Compared to the initial evaluation: she reports pain rating same at 0-4/10, but stated feeling better and less R hip pain; self assessment Oswestry rating from 8 to 16% limitation in activity level; increase strength of trunk and hips, with increase flexibility of R and L hip abduction ROM; in supine, has decreased L hip IR motion, compared to R; education completed for HEP, body mechanics and posture. The goals were partially met. Discharge PT. She is to continue with her HEP and monitoring her posture and body mechanics. Plan of Care PT Services Indicated No
== END 2024-05-22 12:21 | disposition home or self-care (01) ==
LOC: ANHPT 10:00
PROVIDERS: PCP Family Medicine; Visit Provider Family Medicine
DX: M54.50 Low back pain, unspecified (principal)
CPT/HCPCS: 97110; 97140; 97161; 97530

== ENCOUNTER 2024-05-27 08:47 | Outpatient (CLI) | payer OTHER, BC, SELFPAY ==
--- NOTE | ~2024-05-27 | MM_ITS ---
EXAMINATION: MM screening yvon BI w blas HISTORY: Screening TECHNIQUE: Craniocaudal and mediolateral oblique 3-D tomosynthesis images were obtained and synthetic 2-D images were generated. CAD analysis was submitted and interpreted. COMPARISON: 01/02/2023 and 12/16/2011 BREAST PARENCHYMAL COMPOSITION: There are scattered areas of fibroglandular density. FINDINGS: Punctate calcifications are detected bilaterally, stable and benign in appearance. Stable parenchymal pattern without suspicious microcalcifications, architectural distortion, discrete masses or significant asymmetry. IMPRESSION: 1. No mammographic evidence of malignancy. 2. Recommend routine screening mammography in one year. BI-RADS Category 2: Benign finding(s). Reviewed, dictated and finalized at location A.
--- OUTSIDE RECORDS SUMMARY | 2024-05-27 09:26 | XMS_ITS | Patient Health Record ---
Author Organization [facility] Address [address] [address] Care Team Providers Care Splitting Machine Tender Name Role Phone Doris Nelson Primary Care Provider [phone] Mary Kumar Unavailable [phone] Migration, Provider Unavailable Unavailable Allergies Allergen (clinical drug ingredient) Drug/Non Drug Allergy documented on EMR Reaction Allergy Type Onset Date Status Penicillin Unknown Drug Allergy Active Latex Latex Unknown Allergy Active amoxicillin Amoxicillin Unknown Drug Allergy Act josee Reason For Referral No Information Medications Medication SIG (Take, Route, Frequency, Duration) Notes Start Date End Date Status Phentermine HCl 15 MG 1 capsule Orally O nce a day for 90 days 03/26/2024 Active Synthroid 137 MCG 1 tablet in the morn ing on an empty stomach Orally Once a day for 90 days 03/26/2024 Active Vitamin D (Ergocalciferol) 1.25 MG (92121 UT) 1 cap(s) orally once a week for 90 days 11/07/2023 Active Phentermine HCl 15 MG 1 capsule Orally O nce a day for 90 days 02/24/2024 Active Phentermine HCl 15 MG 1 cap(s) orally on ce a day (in the morning) for 90 days 11/07/2023 Active Synthroid 125 MCG 1 tab(s) orally once a day for 90 days 11/07/2023 Active Cyanocobalamin 2000 MCG/ML 0.5 mL Injection Active Problems Problem Type SNOMED Code ICD Code Onset Dates Problem Status W/U Status Risk Notes Problem Vitamin D deficiency (18323449) Vitamin D deficiency, unspecified (E55.9) Active confirmed Problem Hypothyroidism (11307676) Hypothyroidism, unspecified (E03.9) Active confirmed Problem Obesity (920596167) Obesity, unspecified (E66.9) Active confirmed Problem History of malignant neoplasm of thyroid (119315355) Personal history of malignant neoplasm of thyroid (Z85.850) Active confirmed Vital Signs Heart Rate 70 /min 03/26/2024 Respiratory Rate 12 /min 03/26/2024 Blood pressure diastolic 76 mm Hg 03/26/2024 Height 60 in 03/26/2024 Blood pressure systolic 122 mm Hg 03/26/2024 Weight 140 lbs 03/26/2024 BMI 27.34 kg/m2 03/26/2024 Encounters Encounter Location Date Provider Diagnosis [facility] - Doris Nelson [address] [place] [address] 02/23/2024 Doris Nelson Hypothyroidism, unspecified E03.9 ; Obesity, unspecified E66.9 ; Vitamin B12 deficiency anemia, unspecified D51.9 ; Other fatigue R53.83 ; Personal history of malignant neoplasm of thyroid Z85.850 and Dietary counseling and surveillance Z71.[address] [address] 01/20/2024 Provider Migration Vitamin D deficiency , unspecified E55.9 ; Hypothyroidism, unspecified E03.9 ; Overweight E66.3 and Dietary counseling and surveillance Z71.[address] [facility] - Doris Trendzo [address] [place] [address] 10/03/2023 Doris Nelson Hypothyroidism, unspecified E03.9 ; Other fatigue R53.83 ; Vitamin D deficiency, unspecified E55.9 and Encounter for screening for lipoid disorders Z13.220 [facility] [address] [place] [address] 11/07/2023 Doris Nelson [facility] [address] [place] [address] 11/09/2023 Doris Nelson Overweight E66.3 [facility] [address] [place] [address] 02/23/2024 Dor[facility], [facility] - Doris Nelson [address] [place] [address] 03/25/2024 Doris [facility], [facility] - Doris Nelson [address] [place] [address] 11/07/2023 Doris Nelson Hypothyroidism, unspecified E03.9 ; Vitamin D deficiency, unspecified E55.9 and Dietary counseling and surveillance Z71.3 [facility], [facility] [address] [place] [address] 03/26/2024 Doris Nelson Hypothyroidism, unspecified E03.9 ; Personal history of malignant neoplasm of thyroid Z85.850 ; Vitamin D deficiency, unspecified E55.9 and Overweight E66.3 [facility] [id number] [place] [address] 10/04/2023 Doris Nleson Hypothyroidism, unspecified E03.9 [facility] [address] [place] [address] 10/04/2023 Doris Nelson [facility] [address] [place] [address] 11/01/2023 Doris Nelson Assessments Encounter Date Diagnosis (ICD Code) Assessment Notes Treatment Notes Treatment Clinical Notes Section Notes 02/23/2024 Hypothyroidism, unspecified (ICD-10 - E03.9) v 02/23/2024 Obesity, unspecified (ICD-10 - E66.9) v 01/20/2024 Vitamin D deficiency, unspecified (ICD-10 - E55.9) 01/20/2024 Hypothyroidism, unspecified (ICD-10 - E03.9) 01/20/2024 Overweight (ICD-10 - E66.3) 10/03/2023 Other fatigue (ICD-10 - R53.83) Will send for thyroid antibodies to screen for autoimmune thyroid disease in adition to CBC, CMP, ferritin, vit D and B12/folate to screen for other potential secondary causes of fatigue. 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 Has a very small 9 mm nodule in her right lobe/ biopsy completed in May and inconclusive- TG panel essentially negative. Will repeat thyroid u/s this fall to monitor along with TG panel. TSH was too high at most recent labwork- likely due to recent dose reduction of synthroid- will uptitrate synthroid to 125 mcg daily. 6 week samples provided- labs to be completed in 4 weeks to assure levels are improving. She is aware to take with water only and wait one hour to have food, meds/fluids etc. 11/09/2023 Overweight (ICD-10 - E66.3) 11/07/2023 Vitamin D deficiency, unspecified (ICD-10 - E55.9) Send in vitamin D 50 once weekly as her levels are low-goal up to 50 ng/ML to optimize bone and immune health. 11/07/2023 Hypothyroidism, unspecified (ICD-10 - E03.9) TSH in ideal range now at 0.211 uIU/ml down from 11 uIU/ml- with hx of thyroid cancer goal is 0.1 up to 0.5 uIU/mL- TG panel negative. She had inconclusive biopsy of small thyroid tissue this past spring- monitor and repeat thyroid u/s before return visit. 03/26/2024 Hypothyroidism, unspecified (ICD-10 - E03.9) o 03/26/2024 Personal history of malignant neoplasm of thyroid (ICD-10 - Z85.850) o 10/04/2023 Hypothyroidism, unspecified (ICD-10 - E03.9) 02/23/2024 Vitamin B12 deficiency anemia, unspecified (ICD-10 - D51.9) v 01/20/2024 Dietary counseling and surveillance (ICD-10 - Z71.3) 10/03/2023 Vitamin D deficiency, unspecified (ICD-10 - E55.9) Send for vitamin D panel to screen for deficiency- goal of 50 ng/mL to optimize bone and immune health. 11/07/2023 Dietary counseling and surveillance (ICD-10 - Z71.3) discussed dietary measures in regards to weight loss- importance to restrict calories to 1200 per day if sedentary vs 0803-5541 calories depending on caloric expenditure. She was provided information on ethology as this program manages metabolic syndrome and products include insulin sensitizers along with thyroid support/supplementati on to help tailor weight loss in individuals who struggle with underlying autoimmune thyroid conditions and hyperglycemia (fasting glucose of 97 mg/dL). Spent up to 20 minutes discussing alternative weight loss options along with addition of low dose phentermine 15 mg daily which is lowest dose- patient aware of palpitations, anxiety, hypertension and dry mouth which can be common in stimulant therapy. She is aware to contact clinic if any concerns and aware she can discontinue if any concerns upon starting therapy. 03/26/2024 Vitamin D deficiency, unspecified (ICD-10 - E55.9) o 02/23/2024 Other fatigue (ICD-10 - R53.83) v 10/03/2023 Encounter for screening for lipoid disorders (ICD-10 - Z13.220) Recommended omega three fatty acids as TG levels over 200 mg/dL- will repeat lipid panel prior to return visit. 03/26/2024 Overweight (ICD-10 - E66.3) o 02/23/2024 Personal history of malignant neoplasm of thyroid (ICD-10 - Z85.850) v 02/23/2024 Dietary counseling and surveillance (ICD-10 - Z71.3) v 10/03/2023 Other Spent 45 minute s preparing to see the patient (ex review of tests/chart), obtaining and / or reviewing separately obtained history, performing a medically appropriate examination and/or evaluation, counseling and educating the patient/family/caregi grecia, ordering medications, tests, or procedures, referring and communicating with other health child care centre director, documenting clinical information in the electronic or other health record, independently interpreting results and communicating results to the patient/family/caregi grecia and care coordinating patient plan. Patient alert and oriented x 4 and aware of discussion noted above and in agreeance to plan in management of hypothyroidism, fatigue, vitamin def and lipid control. 11/07/2023 Other Spent 25 minutes preparing to see the patient (ex review of tests/chart), obtaining and / or reviewing separately obtained history, performing a medically appropriate examination and/or evaluation, counseling and educating the patient/family/caregi grecia, ordering medications, tests, or procedures, referring and communicating with other health child care centre director, documenting clinical information in the electronic or other health record, independently interpreting results and communicating results to the patient/family/caregi grecia and care coordinating patient plan. Patient alert and oriented x 4 and aware of discussion noted above and in agreeance to plan in management of postoperative hypothyroidism in setting of thyroid ca hx, weight management and vit D def. Due to the nature of telemedicine, the ability to do physical assessment was limited to what can be accomplished by patient directed telehealth visit based on instruction. Those limits are understood by the patient and myself. Impression is based on history, available information, and physical findings accomplished with telehealth visit. Chronic disease/problem list/ medication list reviewed and updated where indicated. Discussed diagnosis, plan including risks, benefits, and options of treatment. Advised to call for new, worsening, or persistent symptoms. Level of patient risk was of moderate complexity due to the documented nature of presentation, the information assessment required and the nature of the development of an evaluation and treatment plan as documented. PMH, FHx, SHx, Surgical Hx, Quality management review carried out and addressed as documented today as part of this visit. Medication list was reviewed and adjusted as indicated. Medication requiring a refill was addressed. Risk and benefits of any new medications were discussed and all questions were answered. 02/23/2024 Other Assessment and Plan: 1. Thyroid nodule- Ultrasound from February 12 is pending; patient reports no significant change in size (approximately 1 cm)- Last thyroglobulin panel was negative- Plan: Await ultrasound results from [facility] and review. Ensure thyroglobulin panel remains negative. If any concerns arise, contact the patient and discuss further management. 2. Hypothyroidism- Patient is currently on Synthroid 125 mcg daily- Plan: Continue Synthroid 125 mcg daily. Monitor thyroid function with routine labs. 3. Vitamin D deficiency- Patient is on weekly vitamin D supplementation- Plan: Continue weekly vitamin D supplementation. Monitor vitamin D levels with routine labs. 4. Vitamin B12 deficiency- Patient is receiving vitamin B12 injections as prescribed by Dr. Elvin Smith- Reports improvement in energy levels- Plan: Continue vitamin B12 injections as prescribed. Monitor vitamin B12 levels with routine labs. 5. Weight management- Patient is currently on phentermine 15 mg and reports that it is not working as effectively as before- Current weight is stable at 143 lbs- Plan: Refill phentermine 15 mg prescription. Encourage patient to maintain a healthy diet, drink plenty of water, and engage in regular exercise (e.g., walking 45 minutes, 5 days a week). Monitor weight and discuss further management if needed during the next visit. 6. Follow-up- Plan: Schedule a follow-up appointment in the spring. Ensure that all lab results are faxed or emailed to the patient. Spent 15 minutes preventative counseling patient on dietary recommendations and changes in setting of hyperglycemia- need to restrict refined sugars and processed foods and incorporate up to 150 minutes of moderate level activity weekly. Spent 25 minutes preparing to see the patient (ex review of tests/chart), obtaining and / or reviewing separately obtained history, performing a medically appropriate examination and/or evaluation, counseling and educating the patient/family/caregi grecia, ordering medications, tests, or procedures, referring and communicating with other health child care centre director, documenting clinical information in the electronic or other health record, independently interpreting results and communicating results to the patient/family/caregi grecia and care coordinating patient plan. Patient alert and oriented x 4 and aware of discussion noted above and in agreeance to plan in management of postoperative hypothyroidism, weight management, fatigue, vit B12 def. Due to the nature of telemedicine, the ability to do physical assessment was limited to what can be accomplished by patient directed telehealth visit based on instruction. Those limits are understood by the patient and myself. Impression is based on history, available information, and physical findings accomplished with telehealth visit. Chronic disease/problem list/ medication list reviewed and updated where indicated. Discussed diagnosis, plan including risks, benefits, and options of treatment. Advised to call for new, worsening, or persistent symptoms. Level of patient risk was of moderate complexity due to the documented nature of presentation, the information assessment required and the nature of the development of an evaluation and treatment plan as documented. PMH, FHx, SHx, Surgical Hx, Quality management review carried out and addressed as documented today as part of this visit. Medication list was reviewed and adjusted as indicated. Medication requiring a refill was addressed. Risk and benefits of any new medications were discussed and all questions were answered. v 03/26/2024 Other Assessment and Plan: HypothyroidismPatient 's thyroid function is suboptimal, with TSH levels elevated above the target range, likely due to missed doses of levothyroxine during a recent trip to [place]. The patient reports feeling mildly fatigued. A small nodule (approximately 1 cm) in the right thyroid lobe has been stable for years, with a previous inconclusive fine needle aspiration biopsy. Increase levothyroxine dose from 125 mcg to 137 mcg daily Continue thyroid ultrasound monitoring of stable nodule Prescription sent to [facility] Fax thyroid-globulin panel results to [facility] Follow-up appointment in June or July Weight managementPatient's weight has decreased from 145 lbs to 140 lbs with the use of phentermine 15 mg, dietary changes, and increased physical activity. Current BMI not provided but weight loss is progressing appropriately. Continue phentermine 15 mg daily Prescription sent to [facility] in [place] Encourage continued dietary modifications and regular exercise Advised gradual weight loss approach DyslipidemiaRecent lipid panel shows elevated cholesterol and triglyceride levels. Specific values not provided. Recommended omega-3 fatty acid supplementation Advised to purchase from [employer] or [employer] Continue monitoring lipid levels Vitamin D deficiencyPatient is currently taking vitamin D supplementation as previously prescribed. Specific levels not provided. Continue current vitamin D supplementation Prescription renewed at [facility] Follow-up:Schedule follow-up appointments as necessary to review lab results and assess the response to interventions. Encourage patient to maintain adherence to prescribed treatments and lifestyle modifications. Spent 25 minutes preparing to see the patient (ex review of tests/chart), obtaining and / or reviewing separately obtained history, performing a medically appropriate examination and/or evaluation, counseling and educating the patient/family/caregi grecia, ordering medications, tests, or procedures, referring and communicating with other health child care centre director, documenting clinical information in the electronic or other health record, independently interpreting results and communicating results to the patient/family/caregi grecia and care coordinating patient plan. Patient alert and oriented x 4 and aware of discussion noted above and in agreeance to plan in management of weight management, hx of thyroid ca/ postoperative hypothyroidism and vit D def. Due to the nature of telemedicine, the ability to do physical assessment was limited to what can be accomplished by patient directed telehealth visit based on instruction. Those limits are understood by the patient and myself. Impression is based on history, available information, and physical findings accomplished with telehealth visit. Chronic disease/problem list/ medication list reviewed and updated where indicated. Discussed diagnosis, plan including risks, benefits, and options of treatment. Advised to call for new, worsening, or persistent symptoms. Level of patient risk was of moderate complexity due to the documented nature of presentation, the information assessment required and the nature of the development of an evaluation and treatment plan as documented. PMH, FHx, SHx, Surgical Hx, Quality management review carried out and addressed as documented today as part of this visit. Medication list was reviewed and adjusted as indicated. Medication requiring a refill was addressed. Risk and benefits of any new medications were discussed and all questions were answered. o Plan Of Treatment Pending Test Test Name Order Date ultrasound thyroid 11/07/2023 Insurance Providers Payer Name Payer Address Payer Phone Subscriber Number Group Number Insured Name Patient Relationship to Insured Coverage Start Date Coverage End Date R [address] [address] [place] [address] [phone] [id number] Alicia Jones Self - patient is the insured [employer] [facility] [address] [place] [address] [id number] Alicia Jones Self - patient is the insured Medical (General) History Medical History History ICD Code THYROID CANCER Surgical History Surgery Date(Month/Year) THYROID REMOVED hysterectomy vaginal Hospitalization History Reason Date(Month/Year) THYROID REMVOVAL HYSTERECTOMY THYROID CANCER
--- OUTSIDE RECORDS SUMMARY | 2024-05-27 09:27 | XMS_ITS | Clinical Summary ---
Author Organization [facility] Address [address] [place] [address] Care Team Providers Care Director Of Business Continuity Name Role Phone Leonila Young SERGIO Primary Care Provider [phone] Allergies Active Allergy Reactions Criticality Noted Date Comments Adhesive Tape-Silicones Blisters High Reaction: BLISTERS, Amoxicillin Rash,Other (See comments) Low Reaction: Reaction: Rash, Latex Other (See comments) Low Reaction: Penicillins [...] 04/10/2018 Assessment & Plan (04/10/2018 3:18 PM COMMUNICATIONS EQUIPMENT INSTALLER): After review of the case with , [...] recommended Assessment & Plan (05/01/2019 9:50 AM COMMUNICATIONS EQUIPMENT INSTALLER): Discussed/ordered labs, Condition is improving, encouraged healthy, low carbohydrate lifestyle and at least 150min/week of exercise, continue going to the gym and eating healthy Assessment & Plan (04/03/2019 11:48 AM COMMUNICATIONS EQUIPMENT INSTALLER): Healthy, low carbohydrate lifestyle and exercise for 150min/week recommended Assessment & Plan (12/26/2018 12:01 PM CDT): Healthy, low carbohydrate diet and exercise for 150min/week recommended Postoperative hypothyroidism 12/31/2012 Overview (06/08/2016): Hypothyroidism, postop Resolved Problems Problem Noted Date Diagnosed Date Resolved Date Malignant neoplasm of thyroid gland 04/03/2019 05/01/2019 Hypothyroidism 10/08/2018 07/12/2021 Assessment & Plan (05/01/2019 9:59 AM COMMUNICATIONS EQUIPMENT INSTALLER): Today we are following up on her anxiety. Since starting the new dose of levothyroxine 112mcg, she has been feeling much less anxiety. She does not want anything for anxiety. Assessment & Plan (04/03/2019 11:47 AM COMMUNICATIONS EQUIPMENT INSTALLER): Pt sees endocrinology, but their office canceled [...] cancer Assessment & Plan (05/01/2019 9:48 AM COMMUNICATIONS EQUIPMENT INSTALLER): Pt had thyroid removed. Dietary counseling and surveillance 12/21/2011 06/14/2019 Immunizations Immunization Administration Dates Next Due Influenza, Trivalent, IM [...] on file Legal Sex Female 10:47 AM COMMUNICATIONS EQUIPMENT INSTALLER Gender Identity Not on file Sexual Orientation [...] 97 10/04/2019 9:22 AM CDT Temperature 36.1 C (96.9 F) 10/04/2019 9:22 AM CDT Respiratory Rate 12 05/01/2019 9:33 AM COMMUNICATIONS EQUIPMENT INSTALLER Oxygen Saturation 97% 10/04/2019 9:22 AM CDT Inhaled Oxygen Concentration - - Weight 65.3 kg (144 lb) 10/05/2020 12:52 PM CDT Height 152.4 cm (5') 04/15/2021 2:13 PM COMMUNICATIONS EQUIPMENT INSTALLER Body Mass Index 28.12 10/05/2020 12:52 PM CDT Plan of Treatment Not on file Insurance [facility] Care Teams Director Of Business Continuity Relationship Specialty Start Date End Date Leonila Young NP PCP - General Family Medicine 02/21/19
--- OUTSIDE RECORDS SUMMARY | 2024-05-27 09:27 | XMS_ITS | Clinical Summary ---
Author Organization [facility] Address [address], [address] [address] Phone Care Team Providers Care Fiber Optics Engineer Name Role Phone Grace Koch APRN, ASSISTANT IMPORT MANAGER Primary Care Provider Unavailable Allergies Active Allergy [...] on file Legal Sex Female 12:11 PM TRAFFIC CONTROL OPERATOR Gender Identity Not on file Sexual Orientation Not on file Last Filed Vital Signs Vital Sign Reading Time Taken Comments Blood Pressure 117/76 06/20/2018 6:40 AM CDT Pulse 88 06/20/2018 5:33 AM CDT Temperature 36 C (96.8 F) 06/20/2018 6:40 AM CDT Respiratory Rate 17 [...] Cologuard 02/28/2018 Immunochemical Fecal Occult Blood 02/28/2018 Pneumococcal Immunization (5 0+ years) (1 of 1 - PCV) 02/28/2018 Zoster Immunization (1 of 2) 02/28/2018 Colonoscopy 06/21/2023 06/20/2018 Colorectal Cancer Screening 06/21/2023 Influenza Immunization (#1) 2023 12/25/2017 SARS-COV-2 Immunization ( - 2023- season) 2023 11/25/2020, 11/04/2020 Respiratory Syncytial Virus (RSV) Immunization (Adult) (1 - 1-dose 75+ series) 02/28/2043 06/20/2018 Meningococcal Immunization (ACWY) Aged Out No longer eligible b ased on patient's age to complete this topic Rotavirus Immunization Aged Out No lo nger eligible based on patient's age to complete this topic Insurance [facility] Care Teams Fiber Optics Engineer Relationship Specialty Start Date End Date Grace Koch APRN, ASSISTANT IMPORT MANAGER PCP - General Obstetrics & Gynecology 04/20/18
--- OUTSIDE RECORDS SUMMARY | 2024-05-27 09:27 | XMS_ITS ---
Author Organization [facility] Address [address] [address] Care Team Providers Care Provider Education Specialist Name Role Phone Doris Nelson Primary Care Provider Allergies Allergen (clinical drug ingredient) Drug/Non Drug Allergy documented on EMR Reaction Allergy Type Onset Date Status Penicillin Unknown Drug Allergy Active Latex Latex Unknown Allergy Active amoxicillin Amoxicillin Unknown Drug Allergy Act josee REASON FOR VISIT 3 Month Follow-up, email please Medications Medication SIG (Take, Route, Frequency, Duration) Notes Start Date End Date Status Phentermine HCl 15 MG 1 capsule Orally O nce a day for 90 days 03/26/2024 Active Synthroid 137 MCG 1 tablet in the morn ing on an empty stomach Orally Once a day for 90 days 03/26/2024 Active Vitamin D (Ergocalciferol) 1.25 MG (90338 UT) 1 cap(s) orally once a week [...] Cyanocobalamin 2000 MCG/ML 0.5 mL Injection Active Vital Signs Blood pressure systolic 122 mm Hg 03/26/19 25 Blood pressure diastolic 76 mm Hg 025 Heart Rate 70 /min 03/26/2024 Respiratory Rate 12 /min 03/26/2024 Height 60 in 03/26/2024 Weight 140 lbs 03/26/2024 BMI 27.34 kg/m2 03/26/2024 Encounters Encounter Location Date Provider Diagnosis [facility] - Doris Nelson [address] [place] [address] 03/26/2024 Doris Nelson Hypothyroidism, unspecified E03.9 ; Personal history of malignant neoplasm of thyroid Z85.850 ; Vitamin D deficiency, unspecified E55.9 and Overweight E66.3 Assessments Encounter Date Diagnosis (ICD Code) Assessment Notes Treatment Notes Treatment Clinical Notes Section Notes 03/26/2024 Hypothyroidism, unspecified (ICD-10 - E03.9) o 03/26/2024 Personal history of malignant neoplasm of thyroid (ICD-10 - Z85.850) o 03/26/2024 Vitamin D deficiency, unspecified (ICD-10 - E55.9) o 03/26/2024 Overweight (ICD-10 - E66.3) o 03/26/2024 Other Assessment and Plan: HypothyroidismPatient 's thyroid function is suboptimal, with TSH levels elevated above the target range, likely due to missed doses of levothyroxine during a recent trip to [place]. The patient reports feeling mildly fatigued. A small nodule (approximately 1 cm) in the right thyroid lobe has been stable for years, with a previous inconclusive fine needle aspiration biopsy. Increase levothyroxine dose from 125 mcg to 137 mcg daily Continue thyroid ultrasound monitoring of stable nodule Prescription sent to [facility] Fax thyroid-globulin panel results to [facility] Follow-up appointment in June or July Weight managementPatient's weight has decreased from 145 lbs to 140 lbs with the use of phentermine 15 mg, dietary changes, and increased physical activity. Current BMI not provided but weight loss is progressing appropriately. Continue phentermine 15 mg daily Prescription sent to [facility] in [place] Encourage continued dietary modifications and regular exercise Advised gradual weight loss approach DyslipidemiaRecent lipid panel shows elevated cholesterol and triglyceride levels. Specific values not provided. Recommended omega-3 fatty acid supplementation Advised to purchase from [employer] or [employer] Continue monitoring lipid levels Vitamin D deficiencyPatient is currently taking vitamin D supplementation as previously prescribed. Specific levels not provided. Continue current vitamin D supplementation Prescription renewed at [facility] Follow-up:Schedule follow-up appointments as necessary to [...] procedures, referring and communicating with other health resident caregiver, documenting clinical information in the electronic or [...] questions were answered. o Plan Of Treatment Medication Medication Name Sig Start Date Stop Date Notes Phentermine HCl 15 MG 1 capsule Orally O nce a day for 90 days 03/26/2024 Synthroid 137 MCG 1 tablet in the morn ing on an empty stomach Orally Once a day for 90 days 03/26/2024 Treatment Notes Assessment Notes Other Assessment and Plan: HypothyroidismPatient's thyroid function is suboptimal, with TSH levels elevated above the target range, likely due to missed doses of levothyroxine during a recent trip to [place]. The patient reports feeling mildly fatigued. A small nodule (approximately 1 cm) in the right thyroid lobe has been stable for years, with a previous inconclusive fine needle aspiration biopsy. Increase levothyroxine dose from 125 mcg to 137 mcg daily Continue thyroid ultrasound monitoring of stable nodule Prescription sent to [facility] Fax thyroid-globulin panel results to [facility] Follow-up appointment in June or July Weight managementPatient's weight has decreased from 145 lbs to 140 lbs with the use of phentermine 15 mg, dietary changes, and increased physical activity. Current BMI not provided but weight loss is progressing appropriately. Continue phentermine 15 mg daily [facility] [place] Encourage continued dietary modifications and regular exercise Advised gradual weight loss approach DyslipidemiaRecent lipid panel shows elevated cholesterol and triglyceride levels. Specific values not provided. Recommended omega-3 fatty acid supplementation Advised to purchase from [employer] or [employer] Continue monitoring lipid levels Vitamin D deficiencyPatient is currently taking vitamin D supplementation as previously prescribed. Specific levels not provided. Continue current vitamin D supplementation Prescription renewed at [facility] Follow-up:Schedule follow-up appointments as necessary to review lab results and assess the response to interventions. Encourage patient to maintain adherence to prescribed treatments and lifestyle modifications. Spent 25 minutes preparing to see the patient (ex review of tests/chart), obtaining and / or reviewing separately obtained history, performing a medically appropriate examination and/or evaluation, counseling and educating the patient/family/caregiver, ordering medications, tests, or procedures, referring and communicating with other health resident caregiver, documenting clinical information in the electronic or other health record, independently interpreting results and communicating results to the patient/family/caregiver and care coordinating patient plan. Patient alert [...] were discussed and all questions were answered. Next Appt Details Follow Up: 3 Months, Reason: labwork Progress Notes * Georgie LYLEShDOB:[birth year] (54 yo F)Acc No.[id number]:03/26/2024 Progress Notes Patient: Alicia CLEMENTS Provider: Linda Nelson MD :1970 A ge:54 Y S ex:Female Date:03/26/2024 Phone: Address:[facility], [place] [id number] Subjective: * Chief Complaints: * 1 . 3 Month Follow-up, email please. * HPI: I nterval Hx: 54 yo female comes in for follow up in management of w eight management along with postoperative hypothyroidism, v it D def found to have residual thyroid tissue on thyroid u/s. Verbal consent provided by patient to proceed with this visit. This visit was performed in office via provider and patient located in primary care office with real time audio with video. Last visit was in [facility]-labs as below. Last thyroid u/s completed on 02/12-per patient states it is stable from previous. 1 cm nodule in right thyroid bed, unchanged in size. She is taking synthroid 125 mcg daily and tolerating well along with phentermine 15 mg daily and her weight is overall stable. Alicia presents with thyroid dysfunction, reporting missed doses of levothyroxine during a recent trip, resulting in suboptimal thyroid function and mild fatigue. Her weight has decreased from 145 to 140 pounds with phentermine and lifestyle modifications. She has a stable 1 cm thyroid nodule with a previous inconclusive biopsy. Recent labs show slightly elevated hemoglobin, hematocrit, cholesterol, and triglycerides. The plan includes increasing levothyroxine, continuing phentermine, monitoring the thyroid nodule, and addressing dyslipidemia with omega-3 supplementation. Patient presents with thyroid dysfunction. Recent thyroid function tests revealed levels are not within the desired range, indicating insufficient thyroid medication. Patient reports missing a couple of doses during a trip to [place]. She experiences mild fatigue and a preference for inactivity. Her weight has decreased from 145 to 140 pounds with the use of phentermine 15 mg and lifestyle modifications, including dietary changes and increased exercise. Patient also has a history of a small thyroid nodule in the right lobe, measuring approximately 1 cm. A previous needle biopsy was inconclusive. The nodule has remained stable in size for years. Additionally, the patient's recent labs show slightly elevated hemoglobin and hematocrit, with normal iron stores. Cholesterol and triglycerides are mildly elevated. Medical History - Thyroid disorder (patient has history of thyroid surgery) - Thyroid nodule in right lobe (approximately 1 cm, stable for years) Current and Past Medications and Supplements - Synthroid 125 mcg - Phentermine 15 mg - Vitamin D (dosage not specified) Social History - Travel: Recent trip to [place] to visit family and grandchildren - Exercise: Going to the gym - Diet: Watching food intake, reduced sweets consumption, increased chicken and protein intake, limited seafood consumption - Weight management: Using phentermine for weight loss - Healthcare: Receives care at [facility] Review of Systems - General: A little tired, not bad - Endocrine: Feeling tired, preferring to lay around Labs from 03/08/24: TSH of 5.310 uIU/ml FT4 of 1.0 ng/dL FT3 of 2.9 pg/mL TPO neg v it D 39.5 ng/ml B12/folate normal H/H 15.9/48 mag 2.4 mg/dL dheas 99 ug/mL acth pending cortisol 6.7 ug/dL iron sat 35% 181/249/35/106. * ROS: C ONSTITUTIONAL: no w eight gain. n o l oss of appetite. f ever?yes. n o w eakness. n o w eight loss. n o n ight sweats. n o n ausea. n o v isual changes. n o c hange in sleep patterns. h +p reviewed y es, R OS form reviewed with patient see scan for detail. n o c hange in activity capacity. D ERMATOLOGY: no r evie. n o c hange in color of moles. n o?lumps. n o d ry or sensitive skin. n o h carmel. n o o kendell skin. n o?acne. n o m oles-irregular. n o m oles-change/new. n o b oils. n o dandruff. n o e xcessive body odor. n o p soriasis. n o f ungal infections. n o n ail problems. n o r edness/inflammation. n o a thlete's foot. n o s kin cancer. n o e czema. E NDOCRINOLOGY: fatigue y es. e xcessive sweating y es. n o?excessive thirst. n o e xcessive urination. n o w eight loss. s leep disturbance yes. n o c old intolerance. n o h eat intolerence. n o t hyroid disease. n o i ncreased loss of hair. n o h x of borderline diabetes. n o d iabetes. n o a bdormal body hair. n o r heumatism. n o c hanges in skin texture. N EUROLOGY: no h eadache. n o t ingling numbness. n o s eizures. n o i nsomnia. n o m vangie loss. n o d izziness. n o g ait abnormality. n o c hange in sensation anywhere on body. n o l ocalized weakness or numbness. n o b lackouts or near blackouts. n o m igraine. n o t remors.?no f ainting spells. n o h ead injury. n o s troke. O PTHALMOLOGY: no d iminished vision. n o e ye irritation. n o?drainage from eyes. n o b lurring of vision. n o s easonal eye sx. n o?dander related eye sx. n o l oss of vision. n o c ataracts. n o g lasses/contacts. n o g laucoma. n o d etached retina. n o m acular degeneration.?no e ye redness. R ESPIRATORY: no s hortness of breath. n o c hest pain. n o?wheezing. n o a sthma. n o b reathlessness when lying flat. n o p rolonged cough. n o f requent infections (bronchitis). n o e mphysema. n o c hest congestion. n o s leep apnea. A LLERGY: no r unny nose. n o s cratchy throat. n o i tchy eyes. n o e ar fullness. n o s inus congestion. n o s tuffy nose. n o w atery eyes. n o s easonal allergies. n o h ay fever. n o a llergy.?no p olyps. n o s neezing. H EMATOLOGY/LYMPH: no s wollen glands. n o f atigue. n o l oss of appetite. n o e asy bruising. n o e asy bleeding. n o a nemia. ? U ROLOGY: no d ifficulty urinating. n o b lood in urine. n o u rinary urgency. n o f requent urination. n o u rinary incontinence. n o v oiding dysfunction. n o v ulvodynia. n o d ysparaunia. n o r ecurrent UTI. n o w eak flow. n o d ribbling after urination. n o f requent bladder infections. n o k idney stone. n o k idney disease. n o u rine hesitancy.?no p ainful urination. N UTRITION: greater than body requirmemts y es. L ess than body requirements y es. a ppropriate / adequate y es, y es. E NT: no c old. n o c ough. n o c oughing blood.?no n ose bleed. n o h earing loss. n o c hange in voice. n o s ore throat. n o r inging in ears. n o s noring. n o e ar pain. n o r unny nose. n o w atery eyes. n o s inus infection. n o e ar infection. n o facial pain. n o h oarseness. n o g oiter. n o g um problems. n o?postnasal drip. n o f requent nosebleeds. C ARDIOLOGY: no c hest pain. n o p alpitations. n o l eg swelling. n o d izziness. n o s hortness of breath. n o v aricose veins.?no l eg cramps. n o c old hands or feet. n o h igh blood pressure. n o ankle swelling. n o c ardiac catheterization. n o h eart attacks. n o a ngina. n o m urmurs. n o l ow blood pressure. n o l eg pain that resolves w/rest. n o p urple fingers or lips. n o i rregular heart rate. n o c ongenital heart defects. n o d izziness when standing up quickly. n o a wakening at night short of breath. G ASTROENTEROLOGY: no n ausea. n o h eartburn. n o s tool incontinence. n o r eflux. n o a bdominal pain. n o i ndigestion. n o h emorrhoids. n o h iatal hernia. n o u lcers. n o a nal fissures. n o?hepatitis. n o g allstones. n o r ed blood after bowel movements. n o v omiting. n o b loating/belching. n o d ifficulty swallowing. n o d iarrhea.?no c onstipation. n o c hange in bowel habits. n o b lood in stool. ? M USCULOSKELETAL: no j oint swelling. n o j oint pain. n o l eg cramps. n o j oint stiffness. n o a rthritis. n o b ack pain. n o?muscle aches. n o m orning stiffness. n o t endinitis. n o n antonette pain. no b ursitis. n o b one marrow biopsy. n o g out. a ctivity intolerance?weakness. n o f racture. P SYCHOLOGY: no h igh stress level. d epression y es. s leep disturbances y es. n o r donnie sx worse with stress. n o s uicidal ideation. n o e ating disorder. n o m ental or physical abuse. n o a nxiety. n o h eadaches. d isease state y es. F EMALE REPRODUCTIVE: no h eavy periods. n o d ysparaunia. n o s exually active. n o p remenstrual syndrome. n o d ysmenorrhea. n o i nfertility. n o f requent yeast infections. n o v aginal itching. n o i ntermenstrual bleeding. n o p ost coital bleeding. n o p ostmenopausal bleeding. n o p elvic pain. n o m enstral cycle. n o v aginal discharge. n o v aginal dryness. n o o varian cysts. n o f ibroids. n o d ischarge from breast. n o abn. bleeding between cycles. n o p ostmenopausal symptoms. n o l oss of sexual interest. n o p ainful sexual intercourse. n o e ndometriosis. n o v aginal warts. n o a bnormal pap. n o i rregular periods. n o a bnormal vaginal discharge. n o h ot flashes. R ECENT WEIGHT CHANGES. * Medical History: T HYROID CANCER. * Medications: T aking Cyanocobalamin 2000 MCG/ML Solution 0.5 mL Injection , Taking Synthroid(Levothyroxine Sodium) 125 MCG Tablet 1 tab(s) orally once a day , Taking Vitamin D (Ergocalciferol) 1.25 MG (51386 UT) Capsule 1 cap(s) orally once a week , Taking Phentermine HCl 15 MG Capsule 1 cap(s) orally once a day (in the morning) , Taking Phentermine HCl 15 MG Capsule 1 capsule Orally Once a day * Allergies: A moxicillin, Penicillin, Latex. Objective: * Vitals: R R:12, HR:70, BP:122/76, Ht: 60, Wt:140, BMI: 27.34. * Examination: G eneral Examination: General n ormal, NAD, well nourished and hydrated, pleasant. Neck, thyroid : s upple. Assessment: * Assessment: 1. H ypothyroidism, unspecified - E03.9 (Primary) 2 . P ersonal history of malignant neoplasm of thyroid - Z85.850 3 . V itamin D deficiency, unspecified - E55.9 4 . O verweight - E66.3 o Plan: * Treatment: 2. O verweight Start Phentermine HCl Capsule, 15 MG, 1 capsule, Orally, Once a day, 90 days, 90 Capsule, Refills 1. 3. O thers Notes: Assessment and Plan: HypothyroidismPatient's thyroid function is suboptimal, with TSH levels elevated above the target range, likely due to missed doses of levothyroxine during a recent trip to [place]. The patient reports feeling mildly fatigued. A small nodule (approximately 1 cm) in the right thyroid lobe has been stable for years, with a previous inconclusive fine needle aspiration biopsy. Increase levothyroxine dose from 125 mcg to 137 mcg daily Continue thyroid ultrasound monitoring of stable nodule Prescription sent to [facility] Fax thyroid-globulin panel results to [facility] Follow-up appointment in June or July Weight managementPatient's weight has decreased from 145 lbs to 140 lbs with the use of phentermine 15 mg, dietary changes, and increased physical activity. Current BMI not provided but weight loss is progressing appropriately. Continue phentermine 15 mg daily Prescription sent to [facility] Encourage continued dietary modifications and regular exercise Advised gradual weight loss approach DyslipidemiaRecent lipid panel shows elevated cholesterol and triglyceride levels. Specific values not provided. Recommended omega-3 fatty acid supplementation Advised to purchase from [employer] or [employer] Continue monitoring lipid levels Vitamin D deficiencyPatient is currently taking vitamin D supplementation as previously prescribed. Specific levels not provided. Continue current vitamin D supplementation Prescription renewed at [facility] Follow-up:Schedule follow-up appointments as necessary to review lab results and assess the response to interventions. Encourage patient to maintain adherence to prescribed treatments and lifestyle modifications. Spent 25 minutes preparing to see the patient (ex review of tests/chart), obtaining and / or reviewing separately obtained history, performing a medically appropriate examination and/or evaluation, counseling and educating the patient/family/caregiver, ordering medications, tests, or procedures, referring and communicating with other health resident caregiver, documenting clinical information in the electronic or other health record, independently interpreting results and communicating results to the patient/family/caregiver and care coordinating patient plan. Patient alert [...] were discussed and all questions were answered. ? * Follow Up: 3 Months (Reason: labwork) * Billing Information: * Visit Code: 78638 Office Visit, Est Pt., Level 4. Modifiers: 95 * Procedure Codes: * SPORTER DRIVER Sign off status: Completed true * Provider: Linda Nelson MD Date: 0 03/26/2024 Generated for Jena collier/Gladis/Juarez on: 0 05/27/2024 09:26 AM CDT History and Physical Notes * HPI (History of Present Illness) Category Sub-Category Detail Notes Category Not es Interval Hx 54 yo female comes in for follow up in management of weight management along with postoperative hypothyroidism, vit D def found to have residual thyroid tissue on thyroid u/s. Verbal consent provided by patient to proceed with this visit. This visit was performed in office via provider and patient located in primary care office with real time audio with video. Last visit was in Dec-labs as below. Last thyroid u/s completed on 02/12-per patient states it is stable from previous. 1 cm nodule in right thyroid bed, unchanged in size. She is taking synthroid 125 mcg daily and tolerating well along with phentermine 15 mg daily and her weight is overall stable. Alicia presents with thyroid dysfunction, reporting missed doses of levothyroxine during a recent trip, resulting in suboptimal thyroid function and mild fatigue. Her weight has decreased from 145 to 140 pounds with phentermine and lifestyle modifications. She has a stable 1 cm thyroid nodule with a previous inconclusive biopsy. Recent labs show slightly elevated hemoglobin, hematocrit, cholesterol, and triglycerides. The plan includes increasing levothyroxine, continuing phentermine, monitoring the thyroid nodule, and addressing dyslipidemia with omega-3 supplementation. Patient presents with thyroid dysfunction. Recent thyroid function tests revealed levels are not within the desired range, indicating insufficient thyroid medication. Patient reports missing a couple of doses during a trip to [place]. She experiences mild fatigue and a preference for inactivity. Her weight has decreased from 145 to 140 pounds with the use of phentermine 15 mg and lifestyle modifications, including dietary changes and increased exercise. Patient also has a history of a small thyroid nodule in the right lobe, measuring approximately 1 cm. A previous needle biopsy was inconclusive. The nodule has remained stable in size for years. Additionally, the patient's recent labs show slightly elevated hemoglobin and hematocrit, with normal iron stores. Cholesterol and triglycerides are mildly elevated. Medical History - Thyroid disorder (patient has history of thyroid surgery) - Thyroid nodule in right lobe (approximately 1 cm, stable for years) Current and Past Medications and Supplements - Synthroid 125 mcg - Phentermine 15 mg - Vitamin D (dosage not specified) Social History - Travel: Recent trip to [place] to visit family and grandchildren - Exercise: Going to the gym - Diet: Watching food intake, reduced sweets consumption, increased chicken and protein intake, limited seafood consumption - Weight management: Using phentermine for weight loss - Healthcare: Receives care at [facility] Review of Systems - General: A little tired, not bad - Endocrine: Feeling tired, preferring to lay around Labs from 03/08/24: TSH of 5.310 uIU/ml FT4 of 1.0 ng/dL FT3 of 2.9 pg/mL TPO neg vit D 39.5 ng/ml B12/folate normal H/H 15.9/48 mag 2.4 mg/dL dheas 99 ug/mL acth pending cortisol 6.7 ug/dL iron sat 35% 181/249/35/106 Examination Category Sub-Category Detail Notes Category Not es General Examination Neck, thyroid : supple General normal, NAD, well no urished and hydrated, pleasant
--- OUTSIDE RECORDS SUMMARY | 2024-05-27 09:27 | XMS_ITS | Data Portability ---
Author Organization [facility] [employer], Main Office Address [address] [place] [address] Assessment No assessment recorded. Plan of Treatment Reminders Order Date Submit Date Provider Last Modified By Organization Details Last Modified Time Details Appointments None recorded. Lab lipid panel, serum 2022 023 [facility], [address], [place], [address], 3 14:22:19 insulin, serum 2022 023 [facility], [address], [place], [address], 3 13:11:23 HbA1c (hemoglobin A1c), blood 2022 023 [facility], [address], [place], [address], 3 11:59:38 TSH + free T4, serum 2022 023 [facility], [address], [place], [address], 3 15:15:49 T3, free, serum or plasma 2022 023 [facility], [address], [place], [address], 3 14:39:35 CMP, serum or plasma 2022 023 [facility], [address], [place], [address], 3 14:22:17 thyroglobul in + thyroglobul in Ab, serum 2022 023 [facility], [address], [place], [address], 3 15:03:13 Referral None recorded. Procedures None recorded. Surgeries None recorded. Imaging US, thyroid 2022 023 [facility] Not available 3 14:07:17 Medication Orders cyanocobala min (vit B-12) 1,000 mcg/mL injection solution 2022 023 [id number], [address], [place], [place], [id number], 3 14:27:36 metformin ER 500 mg tablet,exte nded release 24 hr 2022 023 [facility][id number], [address], [place], [place], [id number], 3 14:26:12 Synthroid 112 mcg tablet 2022 023 [facility], [address] , [address], [place], [address], 3 14:26:08 phentermine 15 mg capsule 2022 023 [facility]51824, [address], [place], [id number], 3 14:31:33 metformin ER 500 mg tablet,exte nded release 24 hr 2022 023 [id number], [address], [place], [place], [id number], 3 12:27:11 phentermine 15 mg capsule 2022 023 [facility][id number], [address], [place], [place], [id number], 3 12:25:08 Patient TargetsNo targets recorded. Patient InstructionsNo instructions [...] er. Appro ximat kendell 1 [facility]. The mutat ions flaco zed by [facility] are most commo n in the [facility] roland popul ation . Becau se [...] WELSH. (2000 ). Lady Test 4:97- 101. [facility] anthony KOCH et al. (1998 ). AM J Prev Med 16:13 4-140 . Phil Null (2002 ). Raheem t 360(9 663): 1673- 81. Shelley bynum et al. (2002 ). Blood Cells , Molec ules. and Disea ses. 29(3) :418- 432. [facility] Sharif et al. (2003 ). Lady Med. 5(1): 1-8. [facility] anthony KOCH et al. (2003 ). Lady Med. 5(4): 304-1 0. . This test was devel oped and its perfo rmanc e shannon cteri stics deter mined by [facility] faisal. It has not been clear ed or appro bridgett by the Food and Drug Admin istra tion. . Lady ic couns elors are avail able for [facility]i ders to discu ss resul ts at [phone]. . Víctor charles, PhD, FAC Martine bynum, PhD, FACMG W. Cezar Chi, PhD, FACMG Vik garcia, PhD, FAC Landy Palomares, PhD, FAC Brijesh henry, PhD, FAC Perfo rmed at: [facility] [place] [address] , [place] [address] Lab Direc tor: Sydneeqamarfletcher [place] [facility] , Phone : [phone] Not Available [facility] (Lab) [address] [place], [address], 09/22/2020 18:09:18 09/18/19 21 09/21/2020 GREGORY/A NTINU CLEAR ANTIB ODIES ,IFA antinuclear antibodies, ifa negati ve Negat serena <1:80 Borde rline 1:80 Posit serena >1:80 Perfo rmed at: [facility] [address] [place] [address] Lab Direc tor: Nico hatfield PhD, Phone : [phone] Not Available [facility] (Lab) [address] [place], [address], 09/21/2020 12:19:19 09/18/19 21 09/19/2020 THYRO ID PEROX IDASE (TPO) AB thyroid peroxidase (tpo) Ab <8 IU/mL 0-34 Perfo rmed at: [facility] [address] [place] [address] Lab Direc tor: Nico hatfield PhD, Phone : [phone] Not Available [facility] (Lab) [address] [place], [address], 09/19/2020 10:47:28 09/18/19 21 09/17/2020 FOLAT E, SERUM /PLAS MA folate >20.0 NG/mL 2.76- Not Available [facility] (Lab) [address] [place], [address], 09/17/2020 21:59:42 09/18/19 21 09/17/2020 VITAM IN B12 (SHAWN CAMPOS ) vb12 566 pg/mL 239-93 1 Not Available [facility] (Lab) [address] [place], [address], 09/17/2020 21:59:41 09/18/19 21 09/17/2020 TSH thyroid-stim ulating hormone 8.030 uIU/m L 0.465- 4.680 high Not Available [facility] (Lab) [address] [place], [address], 09/17/2020 21:35:55 09/18/19 21 09/17/2020 T3 FREE free T3 3.2 pg/mL 2.77-5 .27 Not Available [facility] (Lab) [address] [place], [address], 09/17/2020 21:34:09 09/18/19 21 09/17/2020 T4 FREE free T4 0.90 NG/dL 0.78-2 .19 Not Available [facility] (Lab) [address] [place], [address], 09/17/2020 21:34:07 09/18/19 21 09/17/2020 IRON/ TIBC PANEL iron 81 mcg/d L 42-175 Not Available [facility] (Lab) [address] [place], [address], 09/17/2020 21:32:18 09/18/19 21 09/17/2020 IRON/ TIBC PANEL total iron binding capacity 350 mcg/d L 265-47 5 Not Available [facility] (Lab) [address] [place], [address], 09/17/2020 21:32:18 09/18/19 21 09/17/2020 IRON/ TIBC PANEL % transferrin saturation 23 % 20-55 Not Available [facility] (Lab) [address] [place], [address], 09/17/2020 21:32:18 09/18/19 21 09/17/2020 IRON/ TIBC PANEL unsaturated iron bind capacity 269 mcg/d L 126-38 2 Not Available [facility] (Lab) [address] [place], [address], 09/17/2020 21:32:18 09/18/19 21 09/17/2020 COMPR EHENS SERENA METAB OLIC PANEL creatinine 0.67 mg/dL 0.66-1 .25 Not Available [facility] (Lab) [address] [place], [address], 09/17/2020 21:31:09 09/18/19 21 09/17/2020 COMPR EHENS SERENA METAB OLIC PANEL sodium 142 mmol/ L 137-14 5 Not Available [facility] (Lab) [address] [place], [address], 09/17/2020 21:31:09 09/18/19 21 09/17/2020 COMPR EHENS SERENA METAB OLIC PANEL potassium 4.6 mmol/ L 3.5-5. 1 Not Available [facility] (Lab) [address] [place], [address], 09/17/2020 21:31:09 09/18/19 21 09/17/2020 COMPR EHENS SERENA METAB OLIC PANEL chloride 107 mmol/ L 98-107 Not Available [facility] (Lab) [address] [place], [address], 09/17/2020 21:31:09 09/18/19 21 09/17/2020 COMPR EHENS SERENA METAB OLIC PANEL carbon dioxide 26 mmol/ L 22-30 Not Available [facility] (Lab) [address] [place], [address], 09/17/2020 21:31:09 09/18/19 21 09/17/2020 COMPR EHENS SERENA METAB OLIC PANEL agap 13.6 mmol/ L 14-22 low Not Available [facility] (Lab) [address] [place], [address], 09/17/2020 21:31:09 09/18/19 21 09/17/2020 COMPR EHENS SERENA METAB OLIC PANEL glucose 82 mg/dL 70-99 Not Available [facility] (Lab) [address] [place], [address], 09/17/2020 21:31:09 09/18/19 21 09/17/2020 COMPR EHENS SERENA METAB OLIC PANEL BUN 19 mg/dL 8-19 Not Available [facility] (Lab) [address] [place], [address], 09/17/2020 21:31:09 09/18/19 21 09/17/2020 COMPR EHENS SERENA METAB OLIC PANEL GFR >60 Refer ence Range : [place] ge GFR Healt hy Adult : >60 [...] lator can be locat ed on the [facility] websi te: [email or web address] :[email or web address] rg/pr ofess ional s/kdo qi/gf r_cal culat or Not Available [facility] (Lab) [address] [place], [address], 09/17/2020 21:31:09 09/18/19 21 09/17/2020 COMPR EHENS SERENA METAB OLIC PANEL alkaline phosphatase 79 U/L 38-126 Not Available [facility] (Lab) [address] [place], [address], 09/17/2020 21:31:09 09/18/19 21 09/17/2020 COMPR EHENS SERENA METAB OLIC PANEL alanine aminotransfe rase 45 U/L 0-35 high Not Available [facility] (Lab) [address] [place], [address], 09/17/2020 21:31:09 09/18/19 21 09/17/2020 COMPR EHENS SERENA METAB OLIC PANEL aspartate aminotransfe rase 36 U/L 15-37 Not Available [facility] (Lab) [address] [place], [address], 09/17/2020 21:31:09 09/18/19 21 09/17/2020 COMPR EHENS SERENA METAB OLIC PANEL bilirubin, total 0.70 mg/dL 0.20-1 .30 Not Available [facility] (Lab) [address] [place], [address], 09/17/2020 21:31:09 09/18/19 21 09/17/2020 COMPR EHENS SERENA METAB OLIC PANEL calcium 9.2 mg/dL 8.4-10 .2 Not Available [facility] (Lab) [address] [place], [address], 09/17/2020 21:31:09 09/18/19 21 09/17/2020 COMPR EHENS SERENA METAB OLIC PANEL total protein 6.9 g/dL 6.3-8. 2 Not Available [facility] (Lab) [address] [place], [address], 09/17/2020 21:31:09 09/18/19 21 09/17/2020 COMPR EHENS SERENA METAB OLIC PANEL albumin 4.6 g/dL 3.4-5. 0 Not Available [facility] (Lab) [address] [place], [address], 09/17/2020 21:31:09 09/18/19 21 09/17/2020 COMPR EHENS SERENA METAB OLIC PANEL globulin 2.3 g/dL 2.6-4. 2 low Not Available [facility] (Lab) [address] [place], [address], 09/17/2020 21:31:09 09/18/19 21 09/17/2020 COMPR EHENS SERENA METAB OLIC PANEL A/G ratio 2.0 ratio 1.0-2. 0 Not Available [facility] (Lab) [address] [place], [address], 09/17/2020 21:31:09 12/09/19 21 12/18/2020 THYRO GLOBU MCKENNA BY LCMS thyroglobuli n by lcms tnp Test not perfo rmed This test was devel oped and its perfo rmanc e shannon cteri stics deter mined by [facility]. It has not been clear ed or appro bridgett by the Food and Drug Admin istra tion. Perfo rmed at: - [facility] [place] [address] [facility] [place] [address] Lab Direc tor: Elyssa coley MD, Phone : [phone] Not Available [facility] (Lab) [address] [place], [address], 12/18/2020 17:09:05 12/09/19 21 12/08/2020 TSH thyroid-stim ulating hormone 1.700 uIU/m L 0.465- 4.680 Not Available [facility] (Lab) [address] [place], [address], 12/08/2020 15:31:20 12/09/19 21 12/08/2020 T4 FREE free T4 1.27 NG/dL 0.78-2 .19 Not Available [facility] (Lab) [address] [place], [address], 12/08/2020 15:29:54 12/09/19 21 12/08/2020 COMPR EHENS SERENA METAB OLIC PANEL sodium 141 mmol/ L 137-14 5 Not Available [facility] (Lab) [address] [place], [address], 12/08/2020 14:30:23 12/09/19 21 12/08/2020 COMPR EHENS SERENA METAB OLIC PANEL potassium 4.3 mmol/ L 3.5-5. 1 Not Available [facility] (Lab) [address] [place], [address], 12/08/2020 14:30:23 12/09/19 21 12/08/2020 COMPR EHENS SERENA METAB OLIC PANEL chloride 109 mmol/ L 98-107 high Not Available [facility] (Lab) [address] [place], [address], 12/08/2020 14:30:23 12/09/19 21 12/08/2020 COMPR EHENS SERENA METAB OLIC PANEL carbon dioxide 24 mmol/ L 22-30 Not Available [facility] (Lab) [address] [place], [address], 12/08/2020 14:30:23 12/09/19 21 12/08/2020 COMPR EHENS SERENA METAB OLIC PANEL agap 12.3 mmol/ L 14-22 low Not Available [facility] (Lab) [address] [place], [address], 12/08/2020 14:30:23 12/09/19 21 12/08/2020 COMPR EHENS SERENA METAB OLIC PANEL glucose 88 mg/dL 70-99 Not Available [facility] (Lab) [address] [place], [address], 12/08/2020 14:30:23 12/09/19 21 12/08/2020 COMPR EHENS SERENA METAB OLIC PANEL BUN 18 mg/dL 8-19 Not Available [facility] (Lab) [address] [place], [address], 12/08/2020 14:30:23 10/05/12/08/2020 COMPR EHENS SERENA METAB OLIC PANEL creatinine 0.74 mg/dL 0.66-1 .25 Not Available [facility] (Lab) [address] [place], [address], 12/08/2020 14:30:23 12/09/19 21 12/08/2020 COMPR EHENS SERENA METAB OLIC PANEL GFR >60 Refer ence Range : [place] ge GFR Healt hy Adult : >60 [...] lator can be locat ed on the [facility] websi te: https ://rm w.kid jovi.o rg/pr ofess ional s/kdo qi/gf r_cal culat or Not Available [facility] (Lab) [address] [place], [address], 12/08/2020 14:30:23 12/09/19 21 12/08/2020 COMPR EHENS SERENA METAB OLIC PANEL alkaline phosphatase 71 U/L 38-126 Not Available [facility] (Lab) [address] [place], [address], 12/08/2020 14:30:23 12/09/19 21 12/08/2020 COMPR EHENS SERENA METAB OLIC PANEL alanine aminotransfe rase 39 U/L 0-35 high Not Available [facility] (Lab) [address] [place], [address], 12/08/2020 14:30:23 12/09/19 21 12/08/2020 COMPR EHENS SERENA METAB OLIC PANEL aspartate aminotransfe rase 32 U/L 15-37 Not Available [facility] (Lab) [address] [place], [address], 12/08/2020 14:30:23 12/09/19 21 12/08/2020 COMPR EHENS SERENA METAB OLIC PANEL bilirubin, total 0.30 mg/dL 0.20-1 .30 Not Available [facility] (Lab) [address] [place], [address], 12/08/2020 14:30:23 12/09/19 21 12/08/2020 COMPR EHENS SERENA METAB OLIC PANEL calcium 9.6 mg/dL 8.4-10 .2 Not Available [facility] (Lab) [address] [place], [address], 12/08/2020 14:30:23 12/09/19 21 12/08/2020 COMPR EHENS SERENA METAB OLIC PANEL total protein 6.8 g/dL 6.3-8. 2 Not Available [facility] (Lab) [address] [place], [address], 12/08/2020 14:30:23 12/09/19 21 12/08/2020 COMPR EHENS SERENA METAB OLIC PANEL albumin 4.5 g/dL 3.4-5. 0 Not Available [facility] (Lab) [address] [place], [address], 12/08/2020 14:30:23 12/09/19 21 12/08/2020 COMPR EHENS SERENA METAB OLIC PANEL globulin 2.3 g/dL 2.6-4. 2 low Not Available [facility] (Lab) [address] [place], [address], 12/08/2020 14:30:23 12/09/19 21 12/08/2020 COMPR EHENS SERENA METAB OLIC PANEL A/G ratio 2.0 ratio 1.0-2. 0 Not Available [facility] (Lab) [address] [place], [address], 12/08/2020 14:30:23 04/13/19 22 04/20/2021 THYRO GLOBU [...] refer ence inter jimbo for Thyro globu mckenna (TG) shoul d be relat ed to [...] Perfo rmed at: [facility] - [facility] [address] [place] [address] , [place] [address] Lab Direc tor: Elyssa coley MD, Phone : [phone] Not Available [facility] (Lab) [address] [place], [address], 04/20/2021 14:15:18 04/13/19 22 04/13/2021 FOLAT E, SERUM /PLAS MA folate >20.0 NG/mL 2.76- Not Available [facility] (Lab) [address] [place], [address], 04/13/2021 14:44:30 04/13/19 22 04/13/2021 VITAM IN B12 (SHAWN CAMPOS ) vb12 705 pg/mL 239-93 1 Not Available [facility] (Lab) [address] [place], [address], 04/13/2021 14:44:27 04/13/19 22 04/13/2021 TSH thyroid-stim ulating hormone 0.189 uIU/m L 0.465- 4.680 low Not Available [facility] (Lab) [address] [place], [address], 04/13/2021 14:03:20 04/13/19 22 04/13/2021 T4 FREE free T4 1.39 NG/dL 0.78-2 .19 Not Available [facility] (Lab) [address] [place], [address], 04/13/2021 13:59:03 04/13/19 22 04/13/2021 COMPR EHENS SERENA METAB OLIC PANEL BUN 15 mg/dL 8-19 Not Available [facility] (Lab) [address] [place], [address], 04/13/2021 13:34:06 04/13/19 22 04/13/2021 COMPR EHENS SERENA METAB OLIC PANEL sodium 138 mmol/ L 137-14 5 Not Available [facility] (Lab) [address] [place], [address], 04/13/2021 13:34:06 04/13/19 22 04/13/2021 COMPR EHENS SERENA METAB OLIC PANEL potassium 4.2 mmol/ L 3.5-5. 1 Not Available [facility] (Lab) [address] [facility] [place], [address], 04/13/2021 13:34:06 04/13/19 22 04/13/2021 COMPR EHENS SERENA METAB OLIC PANEL chloride 109 mmol/ L 98-107 high Not Available [facility] (Lab) [address] [place], [address], 04/13/2021 13:34:06 04/13/19 22 04/13/2021 COMPR EHENS SERENA METAB OLIC PANEL carbon dioxide 24 mmol/ L 22-30 Not Available [facility] (Lab) [address] [place], [address], 04/13/2021 13:34:06 04/13/19 22 04/13/2021 COMPR EHENS SERENA METAB OLIC PANEL agap 9.2 mmol/ L 14-22 low Not Available [facility] (Lab) [address] [place], [address], 04/13/2021 13:34:06 04/13/19 22 04/13/2021 COMPR EHENS SERENA METAB OLIC PANEL glucose 94 mg/dL 70-99 Not Available [facility] (Lab) [address] [place], [address], 04/13/2021 13:34:06 04/13/19 22 04/13/2021 COMPR EHENS SERENA METAB OLIC PANEL creatinine 0.68 mg/dL 0.66-1 .25 Not Available [facility] (Lab) [address] [place], [address], 04/13/2021 13:34:06 04/13/19 22 04/13/2021 COMPR EHENS SERENA METAB OLIC PANEL GFR >60 Refer ence Range : [place] ge GFR Healt hy Adult : >60 [...] calcu lator is avail able on the [facility] websi te: https :[email or web address] espana.o rg/pr ofess ional s/kdo qi/gf r_cal culat or Not Available [facility] (Lab) [address] [place], [address], 04/13/2021 13:34:06 04/13/19 22 04/13/2021 COMPR EHENS SERENA METAB OLIC PANEL alkaline phosphatase 68 U/L 38-126 Not Available [facility] (Lab) [address] [place], [address], 04/13/2021 13:34:06 04/13/19 22 04/13/2021 COMPR EHENS SERENA METAB OLIC PANEL alanine aminotransfe rase 67 U/L 0-35 high Not Available [facility] (Lab) [address] [place], [address], 04/13/2021 13:34:06 04/13/19 22 04/13/2021 COMPR EHENS SERENA METAB OLIC PANEL aspartate aminotransfe rase 39 U/L 15-37 high Not Available [facility] (Lab) [address] [place], [address], 04/13/2021 13:34:06 04/13/19 22 04/13/2021 COMPR EHENS SERENA METAB OLIC PANEL bilirubin, total 0.50 mg/dL 0.20-1 .30 Not Available [facility] (Lab) [address] [place], [address], 04/13/2021 13:34:06 04/13/19 22 04/13/2021 COMPR EHENS SERENA METAB OLIC PANEL calcium 8.8 mg/dL 8.4-10 .2 Not Available [facility] (Lab) [address] [place], [address], 04/13/2021 13:34:06 04/13/19 22 04/13/2021 COMPR EHENS SERENA METAB OLIC PANEL total protein 6.6 g/dL 6.3-8. 2 Not Available [facility] (Lab) [address] [place], [address], 04/13/2021 13:34:06 04/13/19 22 04/13/2021 COMPR EHENS SERENA METAB OLIC PANEL albumin 4.2 g/dL 3.4-5. 0 Not Available [facility] (Lab) [address] [place], [address], 04/13/2021 13:34:06 04/13/19 22 04/13/2021 COMPR EHENS SERENA METAB OLIC PANEL globulin 2.4 g/dL 2.6-4. 2 low Not Available [facility] (Lab) [address] [place], [address], 04/13/2021 13:34:06 04/13/19 22 04/13/2021 COMPR EHENS SERENA METAB OLIC PANEL A/G ratio 1.8 ratio 1.0-2. 0 Not Available [facility] (Lab) [address] [place], [address], 04/13/2021 13:34:06 09/22/19 22 09/22/2021 THYRO GLOBU MCKENNA ANTIB RAFAELA thyroglobuli n antibody <1.0 IU/mL 0.0-0. 9 Thyro globu mckenna Antib rafaela measu red by Brett Rouse er Metho dolog y [facility] [address] [facility], [place] [address] Lab Direc tor: Nico hatfield PhD, Phone : [phone] Not Available [facility] (Lab) [address] [place], [address], 09/22/2021 23:07:25 09/22/19 22 09/22/2021 INSUL IN insulin 28.8 uIU/m L 2.6-24 .9 high Perfo rmed at: [facility] [address] [facility], [place] [address] Lab Direc tor: Nico hatfield PhD, Phone : [phone] Not Available [facility] (Lab) [address] [place], [address], 09/22/2021 13:09:45 09/22/19 22 09/21/2021 HEMOG LOBIN A1C HA1C 5.6 % 4.0-6. 0 Diabe karuna Scree luca Crite moisés: <5.7% Consi stent with absen ce of diabe karuna 5.7-6 .4% Consi stent with incre ased risk for diabe karuna (pred iabet es) >OR=6 .5% Consi stent with diabe karuna REFER ENCE: Diabe karuna Care 2016, 39(Hager ppl.1 ):s13 -s22 Not Available [facility] (Lab) [address] [place], [address], 09/21/2021 18:57:00 09/22/19 22 09/21/2021 TSH thyroid-stim ulating hormone 0.376 uIU/m L 0.465- 4.680 low Not Available [facility] (Lab) [address] [place], [address], 09/21/2021 13:23:06 09/22/19 22 09/21/2021 T4 FREE free T4 1.61 NG/dL 0.78-2 .19 Not Available [facility] (Lab) [address] [place], [address], 09/21/2021 13:15:13 09/22/19 22 09/21/2021 LIPID PANEL cholesterol 142 mg/dL 140-19 9 NIH KALA NSUS RECOM MENDA TION FOR WALTER STERO L: ADULT CHILD LOW RISK: <200 <170 BORDE RLINE : <200- 239 ----- HIGH RISK: >240 >200 Not Available [facility] (Lab) [address] [place], [address], 09/21/2021 12:57:10 09/22/19 22 09/21/2021 LIPID PANEL triglyceride s 244 mg/dL 0-150 high NIH KALA NSUS REPOR T RECOM MENDA TION FOR TRIGL YCERI JOSE DANIEL: ADULT CHILD LOW RISK: <150 ----- BODER LINE: 150-1 99 ----- HIGH RISK: >200 ----- Not Available [facility] (Lab) [address] [place], [address], 09/21/2021 12:57:10 09/22/19 22 09/21/2021 LIPID PANEL HDL cholesterol 36 mg/dL 40- low Not Available [facility] (Lab) [address] [place], [address], 09/21/2021 12:57:10 09/22/19 22 09/21/2021 LIPID PANEL [...] WILL NOT BE REPOR KIMBER. Not Available [facility] (Lab) [address] [place], [address], 09/21/2021 12:57:10 09/22/19 22 09/21/2021 COMPR EHENS SERENA METAB OLIC PANEL sodium 140 mmol/ L 137-14 5 Not Available [facility] (Lab) [address] [place], [address], 09/21/2021 12:57:06 09/22/19 22 09/21/2021 COMPR EHENS SERENA METAB OLIC PANEL potassium 4.4 mmol/ L 3.5-5. 1 Not Available [facility] (Lab) [address] [place], [address], 09/21/2021 12:57:06 09/22/19 22 09/21/2021 COMPR EHENS SERENA METAB OLIC PANEL chloride 107 mmol/ L 98-107 Not Available [facility] [facility] (Lab) [address] [place], [address], 09/21/2021 12:57:06 09/22/19 22 09/21/2021 COMPR EHENS SERENA METAB OLIC PANEL creatinine 0.75 mg/dL 0.66-1 .25 Not Available [facility] (Lab) [address] [place], [address], 09/21/2021 12:57:06 09/22/19 22 09/21/2021 COMPR EHENS SERENA METAB OLIC PANEL carbon dioxide 25 mmol/ L 22-30 Not Available [facility] (Lab) [address] [place], [address], 09/21/2021 12:57:06 09/22/19 22 09/21/2021 COMPR EHENS SERENA METAB OLIC PANEL anion gap 12.4 mmol/ L 14-22 low Not Available [facility] (Lab) [address] [place], [address], 09/21/2021 12:57:06 09/22/19 22 09/21/2021 COMPR EHENS SERENA METAB OLIC PANEL glucose 91 mg/dL 70-99 Not Available [facility] (Lab) [address] [facility] [place], [address], 09/21/2021 12:57:06 09/22/19 22 09/21/2021 COMPR EHENS SERENA METAB OLIC PANEL BUN 13 mg/dL 8-19 Not Available [facility] (Lab) [address] [facility] [place], [address], 09/21/2021 12:57:06 09/22/19 22 09/21/2021 COMPR EHENS SERENA METAB OLIC PANEL GFR >60 Refer ence Range : [place] ge GFR Healt hy Adult : >60 [...] or ethni c subgr oups, such as [facility] nics. Outsi de the valid ated [...] calcu lator is avail able on the [facility] websi te: https :[email or web address] [email or web address].rafael brauny.o rg/pr ofess ional s/kdo qi/gf r_cal culat or Not Available [facility] (Lab) [address] [place], [address], 09/21/2021 12:57:06 09/22/19 22 09/21/2021 COMPR EHENS SERENA METAB OLIC PANEL alkaline phosphatase 76 U/L 38-126 Not Available [facility] (Lab) [address] [place], [address], 09/21/2021 12:57:06 09/22/19 22 09/21/2021 COMPR EHENS SERENA METAB OLIC PANEL alanine aminotransfe rase 56 U/L 0-35 high Not Available [facility] (Lab) [address] [place], [address], 09/21/2021 12:57:06 09/22/19 22 09/21/2021 COMPR EHENS SERENA METAB OLIC PANEL aspartate aminotransfe rase 37 U/L 15-37 Not Available [facility] (Lab) [address] [place], [address], 09/21/2021 12:57:06 09/22/19 22 09/21/2021 COMPR EHENS SERENA METAB OLIC PANEL bilirubin, total 0.60 mg/dL 0.20-1 .30 Not Available [facility] (Lab) [address] [place], [address], 09/21/2021 12:57:06 09/22/19 22 09/21/2021 COMPR EHENS SERENA METAB OLIC PANEL calcium 9.6 mg/dL 8.4-10 .2 Not Available [facility] (Lab) [address] [place], [address], 09/21/2021 12:57:06 09/22/19 22 09/21/2021 COMPR EHENS SERENA METAB OLIC PANEL total protein 6.8 g/dL 6.3-8. 2 Not Available [facility] (Lab) [address] [place], [address], 09/21/2021 12:57:06 09/22/19 22 09/21/2021 COMPR EHENS SERENA METAB OLIC PANEL albumin 4.5 g/dL 3.4-5. 0 Not Available [facility] (Lab) [address] [place], [address], 09/21/2021 12:57:06 09/22/19 22 09/21/2021 COMPR EHENS SERENA METAB OLIC PANEL globulin 2.3 g/dL 2.6-4. 2 low Not Available [facility] (Lab) [address] [place], [address], 09/21/2021 12:57:06 09/22/19 22 09/21/2021 COMPR EHENS SERENA METAB OLIC PANEL A/G ratio 2.0 ratio 1.0-2. 0 Not Available [facility] (Lab) [address] [place], [address], 09/21/2021 12:57:06 03/22/19 23 03/23/2022 HEMOG LOBIN [...] Care in Diabe karuna(A DA). Not Available [facility] [address] [address] [place], [address], 03/23/2022 18:58:56 03/22/19 23 03/23/2022 TSH+F REE T4 TSH 0.01 mIU/L low Refer ence Range > or = 20 Years 0.40- 4.50 Pregn ellis Range s First trime ster 0.26- 2.66 Secon d trime ster 0.55- 2.73 Third trime ster 0.43- 2.91 Not Available [address] [address] [place], [address], 03/23/2022 18:58:56 03/22/19 23 03/23/2022 TSH+F REE T4 T4, free 2.0 NG/dL 0.8-1. 8 high Not Available [facility] [address] [address] [place], [address], 03/23/2022 18:58:56 03/22/19 23 03/23/2022 THYRO GLOBU MCKENNA PANEL thyroglobuli n antibodies <1 IU/mL < or = 1 normal Not Available [address] [address] [place], [address], 03/23/2022 18:58:55 03/22/1903/23/2022 THYRO GLOBU MCKENNA PANEL thyroglobuli n 0.2 NG/mL low Refer ence Range : Intac t Thyro id 2.8-4 0.9 Athyr otic <0.1 Note: Abnor mal atif ing is based on the refer ence inter jimbo for patie nts with intac t thyro id. This test was perfo rmed using the [employer] an [employer].comt er chemi lumin escen t metho d. Value s obtai vinicio from diffe rent assay metho ds canno t be used inter morales eably . Thyro globu mckenna level s, regar dless of value , shoul d not be inter prete d as absol marek evide nce of the prese nce or absen ce of disea se. For addit ional infor oskar hill refer to http: //enrico bucio stdia gnost ics.c om/fa q/FAQ (This link is being provi ded for infor jeff blackwell/ educdimitri felix purpo ses only. ) Not Available [facility] [address] [address] [place], [address], 03/23/2022 18:58:55 03/22/19 23 03/23/2022 VITAM IN B12/F OLATE , SERUM PANEL vitamin B12 508 pg/mL 200-11 00 normal Not Available [facility] [address] [place], [address], 03/23/2022 18:58:55 03/22/1903/23/2022 VITAM IN B12/F OLATE , SERUM PANEL folate, serum 16.5 NG/mL normal Refer ence Range Low: <3.4 Borde rline : 3.4-5 .4 Kerri l: >5.4 Not Available [address], [address], 03/23/2022 18:58:55 03/22/19 23 03/23/2022 INSUL IN insulin 26.9 uIU/m L high Refer ence Range < or = 18.4 Risk: Optim al < or = 18.4 Moder ate NA High >18.4 Adult cardi ovasc ular event risk categ ory cut point s (opti mal, moder ate, high) are based on Insul in Refer ence Inter jimbo studi es perfo rmed at [facility] in 2021. Not Available [facility] [address] [address] [place], [address], 03/23/2022 18:58:55 03/22/19 23 03/23/2022 COMPR EHENS SERENA METAB OLIC PANEL glucose 90 mg/dL 65-99 normal Fasti ng refer ence inter jimbo Not Available [facility] [address] [address] [place], [address], 03/23/2022 18:58:54 03/22/19 23 03/23/2022 COMPR EHENS SERENA METAB OLIC PANEL urea nitrogen (BUN) 13 mg/dL 7-25 normal Not Available [address] [address] [place], [address], 03/23/2022 18:58:54 03/22/19 23 03/23/2022 COMPR EHENS SERENA METAB OLIC PANEL creatinine 0.71 mg/dL 0.50-1 .03 normal Not Available [address], [address], 03/23/2022 18:58:54 03/22/19 23 03/23/2022 COMPR EHENS [...] kdoqi /gfr% 5Fcal culat or Not Available [address] [address] [place], [address], 03/23/2022 18:58:54 03/22/19 23 03/23/2022 COMPR EHENS SERENA METAB OLIC PANEL BUN/creatini ne ratio not applic able (calc ) 6-22 Not Available [facility] [address] [address] [place], [address], 03/23/2022 18:58:54 03/22/19 23 03/23/2022 COMPR EHENS SERENA METAB OLIC PANEL sodium 142 mmol/ L 135-14 6 normal Not Available [address] [address] [place], [address], 03/23/2022 18:58:54 03/22/19 23 03/23/2022 COMPR EHENS SERENA METAB OLIC PANEL potassium 4.2 mmol/ L 3.5-5. 3 normal Not Available [address], [address], 03/23/2022 18:58:54 03/22/19 23 03/23/2022 COMPR EHENS SERENA METAB OLIC PANEL chloride 110 mmol/ L 98-110 normal Not Available [address], [address], 03/23/2022 18:58:54 03/22/19 23 03/23/2022 COMPR EHENS SERENA METAB OLIC PANEL carbon dioxide 22 mmol/ L 20-32 normal Not Available [address], [address], 03/23/2022 18:58:54 03/22/19 23 03/23/2022 COMPR EHENS SERENA METAB OLIC PANEL calcium 9.5 mg/dL 8.6-10 .4 normal Not Available [address], [address], 03/23/2022 18:58:54 03/22/19 23 03/23/2022 COMPR EHENS SERENA METAB OLIC PANEL protein, total 6.5 g/dL 6.1-8. 1 normal Not Available [address], [address], 03/23/2022 18:58:54 03/22/19 23 03/23/2022 COMPR EHENS SERENA METAB OLIC PANEL albumin 4.4 g/dL 3.6-5. 1 normal Not Available [address], [address], 03/23/2022 18:58:54 03/22/19 23 03/23/2022 COMPR EHENS SERENA METAB OLIC PANEL globulin 2.1 g/dL_ (calc ) 1.9-3. 7 normal Not Available [address], [address], 03/23/2022 18:58:54 03/22/19 23 03/23/2022 COMPR EHENS SERENA METAB OLIC PANEL albumin/glob ulin ratio 2.1 (calc ) 1.0-2. 5 normal Not Available [address], [address], 03/23/2022 18:58:54 03/22/19 23 03/23/2022 COMPR EHENS SERENA METAB OLIC PANEL bilirubin, total 0.4 mg/dL 0.2-1. 2 normal Not Available [address], [address], 03/23/2022 18:58:54 03/22/19 23 03/23/2022 COMPR EHENS SERENA METAB OLIC PANEL alkaline phosphatase 77 U/L 37-153 normal Not Available [address], [address], 03/23/2022 18:58:54 03/22/19 23 03/23/2022 COMPR EHENS SERENA METAB OLIC PANEL AST 19 U/L 10-35 normal Not Available [address], [address], 03/23/2022 18:58:54 03/22/19 23 03/23/2022 COMPR EHENS SERENA METAB OLIC PANEL ALT 31 U/L 6-29 high Not Available [address], [address], 03/23/2022 18:58:54 03/22/19 23 03/23/2022 LIPID PANEL , STAND EMIR cholesterol, total 140 mg/dL <200 normal Not Available [address], [address], 03/23/2022 18:58:54 03/22/19 23 03/23/2022 LIPID PANEL , STAND EMIR HDL cholesterol 44 mg/dL > or = 50 low Not Available [facility] [address] [place], [address], 03/23/2022 18:58:54 03/22/19 23 03/23/2022 LIPID PANEL , STAND EMIR triglyceride s 206 mg/dL <150 high If a non-f astin g speci men was colle cted, consi radha repea t trigl yceri de testi ng on a fasti ng speci men if clini archana indic ated. Prabhakar garnica et al. J. of Clin. Lipid ol. 2015; 9:129 -169. Not Available [facility] [address] [address] [place], [address], 03/23/2022 18:58:54 03/22/19 23 03/23/2022 LIPID PANEL [...] 2061- 2068 (http ://ed ucati on.Qu estDi PageStitchs. com/f aq/FA Q164) Not Available [facility] [address] [place], [address], 03/23/2022 18:58:54 03/22/19 23 03/23/2022 LIPID PANEL , STAND EMIR chol/HDLC ratio 3.2 (calc ) <5.0 normal Not Available [facility] [address] [place], [address], 03/23/2022 18:58:54 03/22/19 23 03/23/2022 LIPID PANEL , STAND EMIR non HDL cholesterol 96 mg/dL _(becky c) <130 normal For patie nts with diabe karuna plus 1 major ASCVD risk facto r, treat ing to a non-H DL-C goal of <100 mg/dL (LDL- C of <70 mg/dL ) is consi dered a thera peuti c optio n. Not Available [facility] [address] [address], [place], [address], 03/23/2022 18:58:54 07/19/19 23 07/18/2022 HEMOG LOBIN A1C HA1C 5.4 % 4.0-6. 0 Diabe karuna Scree luca Crite moisés: <5.7% Consi stent with absen ce of diabe karuna 5.7-6 .4% Consi stent with incre ased risk for diabe karuna (pred iabet es) >OR=6 .5% Consi stent with diabe karuna REFER ENCE: Diabe karuna Care 2016, 39(Hager ppl.1 ):s13 -s22 Not Available [facility] (Lab) [address] [place], [address], 07/18/2022 14:05:31 07/19/19 23 07/18/2022 COMPR EHENS SERENA METAB OLIC PANEL sodium 139 mmol/ L 137-14 5 Not Available [facility] (Lab) [address] [place], [address], 07/18/2022 14:22:17 07/19/19 23 07/18/2022 COMPR EHENS SERENA METAB OLIC PANEL potassium 4.0 mmol/ L 3.5-5. 1 Not Available [facility] (Lab) [address] [place], [address], 07/18/2022 14:22:17 07/19/19 23 07/18/2022 COMPR EHENS SERENA METAB OLIC PANEL chloride 107 mmol/ L 98-107 Not Available [facility] (Lab) [address] [place], [address], 07/18/2022 14:22:17 07/19/19 23 07/18/2022 COMPR EHENS SERENA METAB OLIC PANEL carbon dioxide 26 mmol/ L 22-30 Not Available [facility] (Lab) [address] [place], [address], 07/18/2022 14:22:17 07/19/19 23 07/18/2022 COMPR EHENS SERENA METAB OLIC PANEL anion gap 10.0 mmol/ L 14-22 low Not Available [facility] (Lab) [address] [place], [address], 07/18/2022 14:22:17 07/19/19 23 07/18/2022 COMPR EHENS SERENA METAB OLIC PANEL glucose 86 mg/dL 70-99 Not Available [facility] (Lab) [address] [place], [address], 07/18/2022 14:22:17 07/19/19 23 07/18/2022 COMPR EHENS SERENA METAB OLIC PANEL BUN 15 mg/dL 8-19 Not Available [facility] (Lab) [address] [place], [address], 07/18/2022 14:22:17 07/19/19 23 07/18/2022 COMPR EHENS SERENA METAB OLIC PANEL creatinine 0.64 mg/dL 0.66-1 .25 low Not Available [facility] (Lab) [address] [place], [address], 07/18/2022 14:22:17 07/19/19 23 07/18/2022 COMPR EHENS SERENA METAB OLIC PANEL GFR >60 Refer ence Range : [place] ge GFR Healt hy Adult : >60 [...] Hispa nics. Outsi de the valid ated fren eters , estim ated GFR is less [...] calcu lator is avail able on the [facility] websi te: https ://rm carrillo.rafael espana.o rg/pr ofess ional s/kdo qi/gf r_cal culat or Not Available [facility] (Lab) [address] [place], [address], 07/18/2022 14:22:17 07/19/19 23 07/18/2022 COMPR EHENS SERENA METAB OLIC PANEL alkaline phosphatase 67 U/L 38-126 Not Available [facility] (Lab) [address] [place], [address], 07/18/2022 14:22:17 07/19/19 23 07/18/2022 COMPR EHENS SERENA METAB OLIC PANEL alanine aminotransfe rase 38 U/L 0-35 high Not Available [facility] (Lab) [address] [place], [address], 07/18/2022 14:22:17 07/19/19 23 07/18/2022 COMPR EHENS SERENA METAB OLIC PANEL aspartate aminotransfe rase 33 U/L 15-37 Not Available [facility] (Lab) [address] [place], [address], 07/18/2022 14:22:17 07/19/19 23 07/18/2022 COMPR EHENS SERENA METAB OLIC PANEL bilirubin, total 0.40 mg/dL 0.20-1 .30 Not Available [facility] (Lab) [address] [place], [address], 07/18/2022 14:22:17 07/19/19 23 07/18/2022 COMPR EHENS SERENA METAB OLIC PANEL calcium 9.4 mg/dL 8.4-10 .2 Not Available [facility] (Lab) [address] [place], [address], 07/18/2022 14:22:17 07/19/19 23 07/18/2022 COMPR EHENS SERENA METAB OLIC PANEL total protein 6.2 g/dL 6.3-8. 2 low Not Available [facility] (Lab) [address] [place], [address], 07/18/2022 14:22:17 07/19/19 23 07/18/2022 COMPR EHENS SERENA METAB OLIC PANEL albumin 3.8 g/dL 3.4-5. 0 Not Available [facility] (Lab) [address] [place], [address], 07/18/2022 14:22:17 07/19/19 23 07/18/2022 COMPR EHENS SERENA METAB OLIC PANEL globulin 2.4 g/dL 2.6-4. 2 low Not Available [facility] (Lab) [address] [place], [address], 07/18/2022 14:22:17 07/19/19 23 07/18/2022 COMPR EHENS SERENA METAB OLIC PANEL A/G ratio 1.6 ratio 1.0-2. 0 Not Available [facility] (Lab) [address] [place], [address], 07/18/2022 14:22:17 07/19/19 23 07/18/2022 LIPID PANEL cholesterol 134 mg/dL 140-19 9 low NIH KALA NSUS RECOM MENDA TION FOR WALTER STERO L: ADULT CHILD LOW RISK: <200 <170 BORDE RLINE : <200- 239 ----- HIGH RISK: >240 >200 Not Available [facility] (Lab) [address] [place], [address], 07/18/2022 14:22:19 07/19/19 23 07/18/2022 LIPID PANEL triglyceride s 208 mg/dL 0-150 high NIH KALA NSUS REPOR T RECOM MENDA TION FOR TRIGL YCERI JOSE DANIEL: ADULT CHILD LOW RISK: <150 ----- BODER LINE: 150-1 99 ----- HIGH RISK: >200 ----- Not Available [facility] (Lab) [address] [place], [address], 07/18/2022 14:22:19 07/19/19 23 07/18/2022 LIPID PANEL HDL cholesterol 43 mg/dL 40- Not Available [facility] (Lab) [address] [place], [address], 07/18/2022 14:22:19 07/19/19 23 07/18/2022 LIPID PANEL [...] WILL NOT BE REPOR KIMBER. Not Available [facility] (Lab) [address] [place], [address], 07/18/2022 14:22:19 07/19/19 23 07/18/2022 T4 FREE free T4 1.58 NG/dL 0.78-2 .19 Not Available [facility] (Lab) [address] [place], [address], 07/18/2022 14:39:34 07/19/19 23 07/18/2022 T3 FREE free T3 3.6 pg/mL 2.77-5 .27 Not Available [facility] (Lab) [address] [place], [address], 07/18/2022 14:39:35 07/19/19 23 07/18/2022 TSH thyroid-stim ulating hormone <0.015 uIU/m L 0.465- 4.680 low Not Available [facility] (Lab) [address] [place], [address], 07/18/2022 14:52:19 07/19/19 23 07/19/2022 INSUL IN insulin 20.7 uIU/m L 2.6-24 .9 Perfo rmed at: [facility] [address] [facility] [place] [address] [address] Lab Direc tor: Nico hatfield PhD, Phone : [phone] Not Available [facility] (Lab) [address] [place], [address], 07/19/2022 13:11:22 07/19/1907/19/2022 THYRO GLOBU MCKENNA ANTIB RAFAELA thyroglobuli n antibody <1.0 IU/mL 0.0-0. 9 Thyro globu mckenna Antib rafaela measu red by Beckm an Coult er Metho dolog y Perfo rmed at: [facility] [address] [facility] [address] [address] Lab Direc tor: Nico hatfield PhD, Phone : [phone] Not Available [facility] (Lab) [address] [place], [address], 07/19/2022 14:13:17 09/23/19 23 09/22/2022 COMPR EHENS SERENA METAB OLIC PANEL sodium 141 mmol/ L 137-14 5 Not Available [facility] (Lab) [address] [place], [address], 09/22/2022 13:39:34 09/23/19 23 09/22/2022 COMPR EHENS SERENA METAB OLIC PANEL potassium 4.3 mmol/ L 3.5-5. 1 Not Available [facility] (Lab) [address] [place], [address], 09/22/2022 13:39:34 09/23/19 23 09/22/2022 COMPR EHENS SERENA METAB OLIC PANEL chloride 105 mmol/ L 98-107 Not Available [facility] (Lab) [address] [place], [address], 09/22/2022 13:39:34 09/23/19 23 09/22/2022 COMPR EHENS SERENA METAB OLIC PANEL carbon dioxide 28 mmol/ L 22-30 Not Available [facility] (Lab) [address] [place], [address], 09/22/2022 13:39:34 09/23/19 23 09/22/2022 COMPR EHENS SERENA METAB OLIC PANEL anion gap 12.3 mmol/ L 14-22 low Not Available [facility] (Lab) [address] [place], [address], 09/22/2022 13:39:34 09/23/19 23 09/22/2022 COMPR EHENS SERENA METAB OLIC PANEL glucose 94 mg/dL 70-99 Not Available [facility] (Lab) [address] [place], [address], 09/22/2022 13:39:34 09/23/19 23 09/22/2022 COMPR EHENS SERENA METAB OLIC PANEL BUN 18 mg/dL 8-19 Not Available [facility] (Lab) [address] [place], [address], 09/22/2022 13:39:34 09/23/19 23 09/22/2022 COMPR EHENS SERENA METAB OLIC PANEL creatinine 0.66 mg/dL 0.66-1 .25 Not Available [facility] (Lab) [address] [place], [address], 09/22/2022 13:39:34 09/23/19 23 09/22/2022 COMPR EHENS SERENA METAB OLIC PANEL GFR >60 Refer ence Range : [place] ge GFR Healt hy Adult : >60 [...] or ethni c subgr oups, such as Hisnd nics. Outsi de the valid ated fern [...] s/kdo qi/gf r_cal culat or Not Available [facility] (Lab) [address] [place], [address], 09/22/2022 13:39:34 09/23/19 23 09/22/2022 COMPR EHENS SERENA METAB OLIC PANEL alkaline phosphatase 71 U/L 38-126 Not Available [facility] (Lab) [address] [place], [address], 09/22/2022 13:39:34 09/23/19 23 09/22/2022 COMPR EHENS SERENA METAB OLIC PANEL alanine aminotransfe rase 38 U/L 0-35 high Not Available [facility] (Lab) [address] [place], [address], 09/22/2022 13:39:34 09/23/19 23 09/22/2022 COMPR EHENS SERENA METAB OLIC PANEL aspartate aminotransfe rase 32 U/L 15-37 Not Available [facility] (Lab) [address] [place], [address], 09/22/2022 13:39:34 09/23/19 23 09/22/2022 COMPR EHENS SERENA METAB OLIC PANEL bilirubin, total 0.60 mg/dL 0.20-1 .30 Not Available [facility] (Lab) [address] [place], [address], 09/22/2022 13:39:34 09/23/19 23 09/22/2022 COMPR EHENS SERENA METAB OLIC PANEL calcium 9.6 mg/dL 8.4-10 .2 Not Available [facility] (Lab) [address] [place], [address], 09/22/2022 13:39:34 09/23/19 23 09/22/2022 COMPR EHENS SERENA METAB OLIC PANEL total protein 7.1 g/dL 6.3-8. 2 Not Available [facility] (Lab) [address] [place], [address], 09/22/2022 13:39:34 09/23/19 23 09/22/2022 COMPR EHENS SERENA METAB OLIC PANEL albumin 4.6 g/dL 3.4-5. 0 Not Available [facility] (Lab) [address] [place], [address], 09/22/2022 13:39:34 09/23/19 23 09/22/2022 COMPR EHENS SERENA METAB OLIC PANEL globulin 2.5 g/dL 2.6-4. 2 low Not Available [facility] (Lab) [address] [place], [address], 09/22/2022 13:39:34 09/23/19 23 09/22/2022 COMPR EHENS SERENA METAB OLIC PANEL A/G ratio 1.8 ratio 1.0-2. 0 Not Available [facility] (Lab) [address] [place], [address], 09/22/2022 13:39:34 09/23/19 23 09/22/2022 LIPID PANEL cholesterol 158 mg/dL 140-19 9 NIH KALA NSUS RECOM MENDA TION FOR WALTER STERO L: ADULT CHILD LOW RISK: <200 <170 BORDE RLINE : <200- 239 ----- HIGH RISK: >240 >200 Not Available [facility] (Lab) [address] [place], [address], 09/22/2022 13:39:39 09/23/19 23 09/22/2022 LIPID PANEL triglyceride s 178 mg/dL 0-150 high NIH KALA NSUS REPOR T RECOM MENDA TION FOR TRIGL YCERI JOSE DANIEL: ADULT CHILD LOW RISK: <150 ----- BODER LINE: 150-1 99 ----- HIGH RISK: >200 ----- Not Available [facility] (Lab) [address] [place], [address], 09/22/2022 13:39:39 09/23/19 23 09/22/2022 LIPID PANEL HDL cholesterol 43 mg/dL 40- Not Available [facility] (Lab) [address] [place], [address], 09/22/2022 13:39:39 09/23/19 23 09/22/2022 LIPID PANEL [...] WILL NOT BE REPOR KIMBER. Not Available [facility] (Lab) [address] [place], [address], 09/22/2022 13:39:39 09/23/19 23 09/22/2022 T4 FREE free T4 1.35 NG/dL 0.78-2 .19 Not Available [facility] (Lab) [address] [place], [address], 09/22/2022 13:58:04 09/23/19 23 09/22/2022 T3 FREE free T3 3.5 pg/mL 2.77-5 .27 Not Available [facility] (Lab) [address] [place], [address], 09/22/2022 13:58:09 09/23/19 23 09/22/2022 TSH thyroid-stim ulating hormone <0.015 uIU/m L 0.465- 4.680 low Not Available [facility] (Lab) [address] [place], [address], 09/22/2022 13:58:30 09/23/19 23 09/22/2022 HEMOG LOBIN A1C HA1C 5.4 % 4.0-6. 0 Diabe karuna Scree luca Crite moisés: <5.7% Consi stent with absen ce of diabe karuna 5.7-6 .4% Consi stent with incre ased risk for diabe karuna (pred iabet es) >OR=6 .5% Consi stent with diabe karuna REFER ENCE: Diabe karuna Care 2016, 39(Hager ppl.1 ):s13 -s22 Not Available [facility] (Lab) [address] [place], [address], 09/22/2022 14:25:08 09/23/19 23 09/23/2022 INSUL IN insulin 28.2 uIU/m L 2.6-24 .9 high Perfo rmed at: [facility] [address] [place] [address] [id number] Lab Direc tor: Nico hatfield PhD, Phone : [phone] Not Available [facility] [facility] (Lab) [address] [place], [address], 09/23/2022 10:12:44 09/23/19 23 09/23/2022 THYRO GLOBU MCKENNA ANTIB RAFAELA thyroglobuli n antibody <1.0 IU/mL 0.0-0. 9 Thyro globu mckenna Antib rafaela measu red by Beckm an Coult er Metho dolog y Perfo rmed at: [facility] [address] [place] [address] 9869 Lab Direc tor: Nico hatfield PhD, Phone : [phone] Not Available [facility] (Lab) [address] [place], [address], 09/23/2022 14:13:26 12/24/19 21 12/23/2020 US, thyro id No observ ation record ed. [id number], [place], [address], 05/04/2022 00:55:01 12/24/19 US, head + neck, soft tissu e [facility] [address] [place] [address] Patien t Name: PARAMJIT GONZALES Access ion #: [id number] Sex: F : 1969 1 Locati [...] d lobe: Absent Page [address] [facility] Patien t Name: PARAMJIT GONZALES Access ion #: [id number] Sex: F : 1969 1 Exam [...] 1:52 PM (CT) Page 2 of 2 [id number].[id number] [facility] (Imaging) [address] [place], [address], 05/04/2022 00:55:01 10/25/20 22 US, head + neck, soft tissu e [facility] [address], [place] [address] Martir gonzales Name: PARAMJIT GONZALES Access ion #: [id number] Sex: F : 1969 6 Locati [...] bed. IMPRES NARA: Page 1 of 2 [facility] Martir gonzales Name: PARAMJIT GONZALES Access ion #: [id number] Sex: F : 1969 6 Exam [...] 8:35 AM (CT) Page 2 of 2 [id number].[id number] [facility] (Imaging) [address] [place], [address], 05/04/2022 00:55:01 12/29/19 22 12/28/2021 US, thyro id No observ ation record ed. [id number] [facility] Add On Lab Orders [address] [place], [address], 05/04/2022 00:55:01 08/17/19 23 US, head + neck, soft tissu e [facility] [address] [facility] [place] [address] [phone] Patien t Name: PARAMJIT GONZALES Access ion #: [id number] Sex: F : 1969 7 Locati [...] the isthmu s. Page 1 of 2 [facility] Patibianka t Name: PARAMJIT GONZALES Access ion #: [id number] Sex: F : 1969 7 Exam [...] 1:02 PM (CT) Page [address] of [address] (Imaging) [address] [place], [address], 08/24/2022 11:44:48 08/17/19 23 08/16/2022 US, thyro id No observ ation record ed. [address] [place], [address], 08/24/2022 11:44:48 02/14/20 24 02/13/2024 US, thyro id No observ ation record ed. [address], [place], [address], 04/11/2024 10:24:15 Result Notes None recorded. Problems Name Problem SNOMED Code Status Onset Date Resolution Date Notes Provider Name and Address Organization Details Recorded Time Postoperative hypothyroidis m 88465494 Active 2022 Armida Landis MD [address] [place] [address], [address] , [employer] 3 11:54:13 Impaired glucose tolerance 6567744 Active 2022 Armida Landis MD [address], [place], [address] , [employer] 3 11:56:21 Hypertriglyce ridemia 498300455 Active 2022 Armida Landis MD [address], [place], [address] , [employer] 3 11:57:33 Vitamin B12 deficiency (non anemic) 01339405 Active 2022 Armida Landis MD [address] [facility] [address], [place], [address] , [facility] [employer] [facility] [employer] 3 19:15:47 Hypothyroidis m 10920042 Active 2018 Not Available [facility] 3 00:49:41 Impaired fasting glycemia 397547422 Active 2022 Armida Landis MD [address], [place], [address] , [employer] 3 14:22:46 Problem Notes None recorded. Procedures Surgical History None recorded. Imaging Results Imaging Date Name Status LastModified by Organiz ation Details LastModified Time 12/23/2020 US, thyroid completed [id number], [place], [address], 05/04/2022 00:55:01 12/23/2020 US, head + neck, soft tissue completed [id number] 026 [facility] (Imaging) [address] [place], [address], 05/04/2022 00:55:01 12/28/2021 US, head + neck, soft tissue completed [id number] 026 [facility] (Imaging) [address] [place], [address], 05/04/2022 00:55:01 12/28/2021 US, thyroid completed [id number] 30 026 [facility] Add On Lab Orders [address] [place], [address], 05/04/2022 00:55:01 08/16/2022 US, head + neck, soft tissue completed [email or web address] [facility] (Imaging) [address] [place], [address], 08/24/2022 11:44:48 08/16/2022 US, thyroid completed [email or web address] [facility] [address], [place], [address], 08/24/2022 11:44:48 02/13/2024 US, thyroid completed [email or web address] [address] [facility] [address], [place], [address], 04/11/2024 10:24:15 Procedure Notes None recorded. Medical Equipment None Reported. Allergies Allergen ID Allergen Name Allergen Category Reaction Reaction Severity Criticality Documentation Date Start Date Code Code System Note Provider Name and Address Organization Details Recorded Time 777 Product containin g penicilli n (product) medicatio n Not available Not available Not available 05/04/2022 20528 8001 SNOMED Not Available [facility] 3 00:54:41 778 amoxicill in medicatio n Not available Not available Not available 05/04/2022 723 RxNorm Not Available [facility] 3 00:54:41 Medications Name Sig Start Date [...] Date Recorded Body mass index (BMI) Body height Oxygen saturation Oxygen saturation in Arterial blood by Pulse oximetry Heart rate Body temperature Body weight Systolic blood pressure Diastolic blood pressure Provider Name and Address Organization Details Last Updated DateTime 1 28.1 kg/m2 152.4 cm 98 % 98 % 74 /min 98.7 [degF] 76389.3 g 124 mm[Hg] 74 mm[Hg] Not Available [facility] 3 00:48:55 Date Recorded Body mass index (BMI) Body height Oxygen saturation Oxygen saturation in Arterial blood by Pulse oximetry Heart rate Body temperature Body weight Systolic blood pressure Diastolic blood pressure Provider Name and Address Organization Details Last Updated DateTime 2 29.5 kg/m2 152.4 cm 99 % 99 % 66 /min 98 [degF] 78151.4 5 g 120 mm[Hg] 80 mm[Hg] Not Available [facility] 3 00:48:55 Date Recorded Body height Body mass index (BMI) Body weight Body temperature Heart rate Systolic blood pressure Diastolic blood pressure Provider Name and Address Organization Details Last Updated DateTime 3 152.4 cm 25.6 kg/m2 49154.6 g 97.6 [degF] 73 /min 128 mm[Hg] 74 mm[Hg] Haley Hu CMA [employer] 3 11:32:31 Date Recorded Body height Body mass index (BMI) Body weight Heart rate Respiratory rate Systolic blood pressure Diastolic blood pressure Provider Name and Address Organization Details Last Updated DateTime 3 152.4 cm 26.2 kg/m2 49680.3 8 g 74 /min 96 /min 130 mm[Hg] 83 mm[Hg] Kierra Day [employer] 3 14:12:56 Social History Question Answer Notes LastModified by Organizat ion Details LastModified Time Tobacco Smoking Status Never Smoker Not Available [facility] 05/04/2022 00:44:55 What Is Your Level Of Alcohol Consumption? Occasional [id number] Information not available 05/04/2022 What Is Your Level Of Caffeine Consumption? Moderate [id number].[id number] 3288 Information not available 05/04/2022 How Much Tobacco Do You Chew? None MIGRATION.[id number] 8927 Information not available 05/04/2022 In The 14 Days Before Symptom Onset, Have You Had Close Contact With A Laboratory-confir med COVID-19 While That Case Was Ill? No [id number].[id number] 2615 Information not available 05/04/2022 In The 14 Days Before Symptom Onset, Have You Had Close Contact With A Person Who Is Under Investigation For COVID-19 While That Person Was Ill? No [id number] 7468 Information not available 05/04/2022 What Type Of Diet Are You Following? REGULAR [id number].[id number] 3816 Information not available 05/04/2022 Which Illicit Or Recreational Drugs Have You Used? None MIGRATION.[id number] 2917 Information not available 05/04/2022 Do You Or Have You Ever Used E-cigarettes Or Vape? 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 MIGRATION.436216 2512 Information not available 05/04/2022 Do You Or Have You Ever Used Smokeless Tobacco? Never Used Smokeless Tobacco MIGRATION.723728 1235 Information not available 05/04/2022 How Much Tobacco Do You Smoke? No MIGRATION.737990 9534 Information not available 05/04/2022 Do You Use Any Illicit Or Recreational Drugs? No MIGRATION.015482 6635 Information not available 05/04/2022 Have You Recently Traveled Abroad? No MIGRATION.312167 7667 Information not available 05/04/2022 Do You Have Any Dietary Restrictions? No MIGRATION.068373 3515 Information not available 05/04/2022 Sex: Female Functional Status None recorded. Mental Status None recorded. Family History Nothing Reported. Medical History Condition Response HYPOTHYROIDISM Y Gynecological HistoryNo gynecological history recorded. Obstetrics History GPAL:G 0 P 0 0 0 0 Past Encounters Encounter ID Performer Location Encounter Start Date Encounter Closed Date Diagnosis/Indication Diagnosis SNOMED-CT Code Diagnosis ICD10 Code Diagnosis Note [id number] [facility] [place] [address] [place] [id number] 05/11/2020 00:00:00 05/11/2020 11:23:50 [id number] [facility] [place] [address] [place] [address] 09/22/2020 00:00:00 09/22/2020 13:11:56 [id number] [facility] [place] [address] [place] [id number] 04/19/2021 00:00:00 04/19/2021 10:13:10 [id number] [facility] [place] [address] [place] [address] 10/25/2021 00:00:00 10/25/2021 12:14:59 [id number] Armida Landis MD [facility] [place] [address] [place] [id number] 05/13/2022 10:53:06 05/13/2022 12:04:15 Postoperative hypothyroidism 38225894 E89.0 FT4 high and patient has had [...] inflammati on. Educated a bout weight management 491660501 Z71.3 Continue on low dose phentermin e- she has had up to 20 pound weight loss and BMI now close to ideal range. Not only has this helped with weight management -she has had improvemen t with mood, energy, focus and sleep. Impaired g lucose tolerance 0959345 R73.02 Continue on metformin once daily with largest meal. Discussed carb counting and how to read food labels. Recommende d patient to utilize the diabetesfo [employer] from the ADA website to help with food preparatio n as this presents ideal carb content per meal so this will make carb counting much easier for patient. Recommende d she incorporat e natural insulin office manager s such as pears, apples, cinnamon, david and sweet potatoes to help mobilize her endogenous insulin. Recommende d up to 150 minutes of moderate level activity/e xercise weekly. Hypertriglyceridemia 302 023639 E78.1 Recommende d patient trial on lower [...] she chooses to go outside of the [facility] system to obtain labwork she was [...] in her case. She voiced understand ing. [id number] Armida Landis MD [facility] [place] [address] [place] [address] 10/14/2022 13:52:13 10/14/2022 14:34:03 Postoperative hypothyroidism 16382424 E89.0 FT4 now in ideal range- TSH [...] reduce inflammati on. Impaired f asting glycemia 315018596 R73.01 A1C in range- 5.4%- continue on metformin once daily with largest meal. Recommende d she incorporat e natural insulin office manager s such as pears, apples, cinnamon, david and sweet potatoes to help mobilize her endogenous insulin. Recommende d up to 150 minutes of moderate level activity/e xercise weekly. Vitamin B1 2 deficiency (non anemic) 25514033 E53.8 Continue on B12 injections weekly as she feels these have helped with her energy and focus. Educated a bout weight management 838097320 Z71.3 Continue on low dose phentermin e- [...] Member ID Guarantor Name 05/13/2022 1 UMR [id number] Alicia Jones [id number] Alicia Jones 05/13/2022 2 [place]: (PP[place] [id number] Placido Jones [id number] Alicia Jones 10/14/2022 1 UMR [id number] Alicia Jones [id number] Alicia Jones 10/14/2022 2 [facility]: (PPO) [id number] Placido Jones [id number] Alicia Jones Notes Date Note Type [...] week. She had a liver u/s at [facility] and she was found to have fatty [...] 5.4%TSH of 0.01 uIU/mlFT4 of 2.0 pg/mlTG unqhoctxP36/folate normalinsulin 26.9 uU/mlglucose 90 mg/dLCr normalALT 31 U/L140/206/44/69 Armida Landis MD [address] [facility] [address], [place], [address], [facility] [employer] 05/13/2022 12:28:23 10/14/2022 text/html 52 yo female [...] mg/dLCr normalLFT normal Armida Landis MD [address], [facility] [address], [place], [address], [facility] [place] [employer] [facility] 10/14/2022 14:35:59 OBGyn Episode No OBEpisode recorded.
--- OUTSIDE RECORDS SUMMARY | 2024-05-27 09:27 | XMS_ITS ---
Author Organization [facility] [place] Address [address] [place] [address] Care Team Providers Care Chiller Operator Name Role Phone Doris Nelson Primary Care Provider REASON FOR VISIT Test results Encounters Encounter Location Date Provider Diagnosis [facility] - Doris Nelson [address] [place] [address] 03/25/2024 Doris Nelson Plan Of Treatment No Information Progress Notes * LYLESGeorgie LEVYhDOB:[birth year] (54 yo F)Acc No.[id number]:03/25/2024 Patient: Alicia CLEMENTS :1970 A ge:54 Y S ex:Female Phone: Address:[address] [place] [address] * true * Date: Generated for Estephaniai nando/Faagapitog/eTransmitting on: 0 05/27/2024 09:27 AM CDT
--- OUTSIDE RECORDS SUMMARY | 2024-05-27 09:27 | XMS_ITS | Referral Summary ---
Author Organization [facility] Address [address] [place] [address] Care Team Providers Care Plaster Pattern Caster Name Role Phone Leonila Young SERGIO Primary Care Provider [phone] Allergies Active Allergy Reactions Criticality Noted Date [...] 04/10/2018 Assessment & Plan (04/10/2018 3:18 PM VP PRODUCT): After review of the case with , [...] recommended Assessment & Plan (05/01/2019 9:50 AM VP PRODUCT): Discussed/ordered labs, Condition is improving, encouraged healthy, low carbohydrate lifestyle and at least 150min/week of exercise, continue going to the gym and eating healthy Assessment & Plan (04/03/2019 11:48 AM VP PRODUCT): Healthy, low carbohydrate lifestyle and exercise for 150min/week recommended Assessment & Plan (12/26/2018 12:01 PM CDT): Healthy, low carbohydrate diet and exercise for 150min/week recommended Postoperative hypothyroidism 12/31/2012 Overview (06/08/2016): Hypothyroidism, postop Resolved Problems Problem Noted Date Diagnosed Date Resolved Date Malignant neoplasm of thyroid gland 04/03/2019 05/01/2019 Hypothyroidism 10/08/2018 07/12/2021 Assessment & Plan (05/01/2019 9:59 AM VP PRODUCT): Today we are following up on her anxiety. Since starting the new dose of levothyroxine 112mcg, she has been feeling much less anxiety. She does not want anything for anxiety. Assessment & Plan (04/03/2019 11:47 AM VP PRODUCT): Pt sees endocrinology, but their office canceled [...] cancer Assessment & Plan (05/01/2019 9:48 AM VP PRODUCT): Pt had thyroid removed. Dietary counseling and [...] on file Legal Sex Female 10:47 AM VP PRODUCT Gender Identity Not on file Sexual Orientation Not on file Last Filed Vital Signs Vital Sign Reading Time Taken Comments Blood Pressure 131/87 10/04/2019 9:22 AM CDT Pulse 97 10/04/2019 9:22 AM CDT Temperature 36.1 C (96.9 F) 10/04/2019 9:22 AM CDT Respiratory Rate 12 05/01/2019 9:33 AM VP PRODUCT Oxygen Saturation 97% 10/04/2019 9:22 AM CDT Inhaled Oxygen Concentration - - Weight 65.3 kg (144 lb) 10/05/2020 12:52 PM CDT Height 152.4 cm (5') 04/15/2021 2:13 PM VP PRODUCT Body Mass Index 28.12 10/05/2020 12:52 PM CDT Plan of Treatment Not on file Insurance [facility] Care Teams Plaster Pattern Caster Relationship Specialty Start Date End Date Leonila Young NP PCP - General Family Medicine 02/21/19
--- OUTSIDE RECORDS SUMMARY | 2024-05-27 09:28 | XMS_ITS ---
Author Organization [facility] Address [address] [place] [address] Care Team Providers Care Photocopy Operator Name Role Phone Doris Nelson Primary Care Provider Encounters Encounter Location Date Provider Diagnosis [facility] [address] [place] [address] 02/23/2024 Doris Nelson Plan Of Treatment No Information Progress Notes * Georgie LYLEShDOB:[birth year] (53 yo F)Acc No.[id number]:02/23/2024 Patient: Alicia CLEMENTS :1970 A ge:53 Y S ex:Female Phone: Address:[address] [facility] [place] [address] * true * Date: Generated for Estephaniai nando/Faagapitog/eTransmitting on: 0 05/27/2024 09:27 AM CDT
== END 2024-05-27 08:48 | disposition home or self-care (01) ==
LOC: ANHIMG 08:49
PROVIDERS: PCP Family Medicine; Visit Provider Family Medicine
DX: Z12.31 Encounter for screening mammogram for malignant neoplasm of breast (principal)
CPT/HCPCS: 77063; 77067

== ENCOUNTER 2024-07-01 13:30 | Outpatient (CLI) | payer OTHER, BC, SELFPAY ==
--- OUTSIDE RECORDS SUMMARY | 2024-07-01 15:20 | XMS_ITS | Referral Summary ---
Author Organization [facility] Medical [facility] Building [facility] Address [address] [place] [address] Care Team Providers Care Vegetable Farmer Name Role Phone Leonila Young SERGIO Primary Care Provider [phone] Allergies Active Allergy Reactions Criticality Noted Date [...] 04/10/2018 Assessment & Plan (04/10/2018 3:18 PM FORENSIC SCIENCE EXAMINER): After review of the case with , [...] recommended Assessment & Plan (05/01/2019 9:50 AM FORENSIC SCIENCE EXAMINER): Discussed/ordered labs, Condition is improving, encouraged healthy, low carbohydrate lifestyle and at least 150min/week of exercise, continue going to the gym and eating healthy Assessment & Plan (04/03/2019 11:48 AM FORENSIC SCIENCE EXAMINER): Healthy, low carbohydrate lifestyle and exercise for 150min/week recommended Assessment & Plan (12/26/2018 12:01 PM CDT): Healthy, low carbohydrate diet and exercise for 150min/week recommended Postoperative hypothyroidism 12/31/2012 Overview (06/08/2016): Hypothyroidism, postop Resolved Problems Problem Noted Date Diagnosed Date Resolved Date Malignant neoplasm of thyroid gland 04/03/2019 05/01/2019 Hypothyroidism 10/08/2018 07/12/2021 Assessment & Plan (05/01/2019 9:59 AM FORENSIC SCIENCE EXAMINER): Today we are following up on her anxiety. Since starting the new dose of levothyroxine 112mcg, she has been feeling much less anxiety. She does not want anything for anxiety. Assessment & Plan (04/03/2019 11:47 AM FORENSIC SCIENCE EXAMINER): Pt sees endocrinology, but their office canceled [...] cancer Assessment & Plan (05/01/2019 9:48 AM FORENSIC SCIENCE EXAMINER): Pt had thyroid removed. Dietary counseling and [...] on file Legal Sex Female 10:47 AM FORENSIC SCIENCE EXAMINER Gender Identity Not on file Sexual Orientation Not on file Last Filed Vital Signs Vital Sign Reading Time Taken Comments Blood Pressure 131/87 10/04/2019 9:22 AM CDT Pulse 97 10/04/2019 9:22 AM CDT Temperature 36.1 C (96.9 F) 10/04/2019 9:22 AM CDT Respiratory Rate 12 05/01/2019 9:33 AM FORENSIC SCIENCE EXAMINER Oxygen Saturation 97% 10/04/2019 9:22 AM CDT Inhaled Oxygen Concentration - - Weight 65.3 kg (144 lb) 10/05/2020 12:52 PM CDT Height 152.4 cm (5') 04/15/2021 2:13 PM FORENSIC SCIENCE EXAMINER Body Mass Index 28.12 10/05/2020 12:52 PM CDT Plan of Treatment Not on file Insurance [employer] [facility] Care Teams Vegetable Farmer Relationship Specialty Start Date End Date Leonila Young NP PCP - General Family Medicine 02/21/19
--- OUTSIDE RECORDS SUMMARY | 2024-07-01 15:20 | XMS_ITS ---
Author Organization [email or web address] [facility] Address [address] [address] Care Team Providers Care Cooky Machine Operator Name Role Phone Doris Nelson Primary Care Provider Allergies Allergen (clinical drug ingredient) Drug/Non Drug Allergy documented on EMR Reaction Allergy Type Onset Date Status Latex Latex Unknown Allergy Active amoxicillin Amoxicillin Unknown Drug Allergy Act josee Penicillin Unknown Drug Allergy Active REASON FOR VISIT 3 Month Follow-up, email [...] 03/26/2024 Active Vitamin D (Ergocalciferol) 1.25 MG (15090 UT) 1 cap(s) orally once a week [...] 03/26/2024 Encounters Encounter Location Date Provider Diagnosis [facility], [facility] - Doris Nelson [address] [address] 03/26/2024 Doris Nelson Hypothyroidism, unspecified E03.9 ; [...] levothyroxine during a recent trip to [place]. The patient reports feeling mildly fatigued. A small nodule (approximately 1 cm) in the right thyroid lobe has been stable for years, with a previous inconclusive fine needle aspiration biopsy. Increase levothyroxine dose from 125 mcg to 137 mcg daily Continue thyroid ultrasound monitoring of stable nodule Prescription sent to [facility] Fax thyroid-globulin panel results to [facility] Follow-up appointment in June or July Weight managementPatient's weight has decreased from 145 lbs to 140 lbs with the use of phentermine 15 mg, dietary changes, and increased physical activity. Current BMI not provided but weight loss is progressing appropriately. Continue phentermine 15 mg daily Prescription sent to [facility] in [place] Encourage continued dietary modifications and regular exercise Advised gradual weight loss approach DyslipidemiaRecent lipid panel shows elevated cholesterol and triglyceride levels. Specific values not provided. Recommended omega-3 fatty acid supplementation Advised to purchase from [employer] or [employer] Continue monitoring lipid levels Vitamin D deficiencyPatient is currently taking vitamin D supplementation as previously prescribed. Specific levels not provided. Continue current vitamin D supplementation Prescription renewed at [facility] Follow-up:Schedule follow-up appointments as necessary to [...] procedures, referring and communicating with other health customer care coordinator, documenting clinical information in the electronic or [...] levothyroxine during a recent trip to [place]. The patient reports feeling mildly fatigued. A small nodule (approximately 1 cm) in the right thyroid lobe has been stable for years, with a previous inconclusive fine needle aspiration biopsy. Increase levothyroxine dose from 125 mcg to 137 mcg daily Continue thyroid ultrasound monitoring of stable nodule Prescription sent to [facility] Fax thyroid-globulin panel results to [facility] Follow-up appointment in June or July Weight managementPatient's weight has decreased from 145 lbs to 140 lbs with the use of phentermine 15 mg, dietary changes, and increased physical activity. Current BMI not provided but weight loss is progressing appropriately. Continue phentermine 15 mg daily [facility] [place] Encourage continued dietary modifications and regular exercise Advised gradual weight loss approach DyslipidemiaRecent lipid panel shows elevated cholesterol and triglyceride levels. Specific values not provided. Recommended omega-3 fatty acid supplementation Advised to purchase from [employer] or [employer] Continue monitoring lipid levels Vitamin D deficiencyPatient is currently taking vitamin D supplementation as previously prescribed. Specific levels not provided. Continue current vitamin D supplementation Prescription renewed at [facility] Follow-up:Schedule follow-up appointments as necessary to [...] procedures, referring and communicating with other health customer care coordinator, documenting clinical information in the electronic or [...] * Georgie LYLEShDOB:[birth year] (54 yo F)Acc No.[id number]:03/26/2024 Progress Notes Patient: Alicia CLEMENTS Provider: Linda Nelson MD :1970 A ge:54 Y S ex:Female Date:03/26/2024 Phone: Address:[facility] [address] [facility] [place] [facility] Subjective: * Chief Complaints: * 1 . [...] audio with video. Last visit was in [facility] as below. Last thyroid u/s completed on [...] couple of doses during a trip to [place]. She experiences mild fatigue and a preference [...] Social History - Travel: Recent trip to [place] to visit family and grandchildren - Exercise: Going to the gym - Diet: Watching food intake, reduced sweets consumption, increased chicken and protein intake, limited seafood consumption - Weight management: Using phentermine for weight loss - Healthcare: Receives care at [facility] Review of Systems - General: A little [...] , Taking Vitamin D (Ergocalciferol) 1.25 MG (07643 UT) Capsule 1 cap(s) orally once a [...] levothyroxine during a recent trip to [place]. The patient reports feeling mildly fatigued. A small nodule (approximately 1 cm) in the right thyroid lobe has been stable for years, with a previous inconclusive fine needle aspiration biopsy. Increase levothyroxine dose from 125 mcg to 137 mcg daily Continue thyroid ultrasound monitoring of stable nodule Prescription sent to [facility] Fax thyroid-globulin panel results to [facility] Follow-up appointment in June or July Weight managementPatient's weight has decreased from 145 lbs to 140 lbs with the use of phentermine 15 mg, dietary changes, and increased physical activity. Current BMI not provided but weight loss is progressing appropriately. Continue phentermine 15 mg daily Prescription sent to [facility] Encourage continued dietary modifications and regular exercise Advised gradual weight loss approach DyslipidemiaRecent lipid panel shows elevated cholesterol and triglyceride levels. Specific values not provided. Recommended omega-3 fatty acid supplementation Advised to purchase from [employer] or [employer] Continue monitoring lipid levels Vitamin D deficiencyPatient is currently taking vitamin D supplementation as previously prescribed. Specific levels not provided. Continue current vitamin D supplementation Prescription renewed at [facility] Follow-up:Schedule follow-up appointments as necessary to [...] procedures, referring and communicating with other health customer care coordinator, documenting clinical information in the electronic or [...] labwork) * Billing Information: * Visit Code: 55811 Office Visit, Est Pt., Level 4. Modifiers: 95 * Procedure Codes: * CONSTRUCTION SUPERINTENDENT Sign off status: Completed true * Provider: Linda Nelson MD Date: 0 03/26/2024 Generated for Jena collier/Gladis/Juarez on: 0 07/01/2024 03:19 PM CDT History and Physical Notes * HPI [...] couple of doses during a trip to [place]. She experiences mild fatigue and a preference [...] Social History - Travel: Recent trip to [place] to visit family and grandchildren - Exercise: Going to the gym - Diet: Watching food intake, reduced sweets consumption, increased chicken and protein intake, limited seafood consumption - Weight management: Using phentermine for weight loss - Healthcare: Receives care at [facility] Review of Systems - General: A little [...]
--- OUTSIDE RECORDS SUMMARY | 2024-07-01 15:20 | XMS_ITS | Clinical Summary ---
Author Organization [facility] Address [address] [place] [address] Care Team Providers Care Marble Finisher Name Role Phone Leonila Young SERGIO Primary Care Provider [phone] Allergies Active Allergy Reactions Criticality Noted Date [...] 04/10/2018 Assessment & Plan (04/10/2018 3:18 PM FEED AND FARM MANAGEMENT ADVISER): After review of the case with , [...] recommended Assessment & Plan (05/01/2019 9:50 AM FEED AND FARM MANAGEMENT ADVISER): Discussed/ordered labs, Condition is improving, encouraged healthy, low carbohydrate lifestyle and at least 150min/week of exercise, continue going to the gym and eating healthy Assessment & Plan (04/03/2019 11:48 AM FEED AND FARM MANAGEMENT ADVISER): Healthy, low carbohydrate lifestyle and exercise for 150min/week recommended Assessment & Plan (12/26/2018 12:01 PM CDT): Healthy, low carbohydrate diet and exercise for 150min/week recommended Postoperative hypothyroidism 12/31/2012 Overview (06/08/2016): Hypothyroidism, postop Resolved Problems Problem Noted Date Diagnosed Date Resolved Date Malignant neoplasm of thyroid gland 04/03/2019 05/01/2019 Hypothyroidism 10/08/2018 07/12/2021 Assessment & Plan (05/01/2019 9:59 AM FEED AND FARM MANAGEMENT ADVISER): Today we are following up on her anxiety. Since starting the new dose of levothyroxine 112mcg, she has been feeling much less anxiety. She does not want anything for anxiety. Assessment & Plan (04/03/2019 11:47 AM FEED AND FARM MANAGEMENT ADVISER): Pt sees endocrinology, but their office canceled [...] cancer Assessment & Plan (05/01/2019 9:48 AM FEED AND FARM MANAGEMENT ADVISER): Pt had thyroid removed. Dietary counseling and [...] on file Legal Sex Female 10:47 AM FEED AND FARM MANAGEMENT ADVISER Gender Identity Not on file Sexual Orientation [...] CDT Respiratory Rate 12 05/01/2019 9:33 AM FEED AND FARM MANAGEMENT ADVISER Oxygen Saturation 97% 10/04/2019 9:22 AM CDT Inhaled Oxygen Concentration - - Weight 65.3 kg (144 lb) 10/05/2020 12:52 PM CDT Height 152.4 cm (5') 04/15/2021 2:13 PM FEED AND FARM MANAGEMENT ADVISER Body Mass Index 28.12 10/05/2020 12:52 PM CDT Plan of Treatment Not on file Insurance [facility] C[facility] Care Teams Marble Finisher Relationship Specialty Start Date End Date Leonila Young NP PCP - General Family Medicine 02/21/19
--- OUTSIDE RECORDS SUMMARY | 2024-07-01 15:20 | XMS_ITS | Patient Health Record ---
Author Organization [employer] [facility] Address [address] [address] Care Team Providers Care Pole Maker Name Role Phone Doris Nelson Primary Care Provider [phone] Mary Kumar Unavailable [phone] Migration, Provider Unavailable Unavailable Allergies Allergen (clinical [...] 03/26/2024 Active Vitamin D (Ergocalciferol) 1.25 MG (45333 UT) 1 cap(s) orally once a week [...] Status Risk Notes Problem Vitamin D deficiency (21871036) Vitamin D deficiency, unspecified (E55.9) Active confirmed Problem Hypothyroidism (74178582) Hypothyroidism, unspecified (E03.9) Active confirmed Problem Obesity (742461320) Obesity, unspecified (E66.9) Active confirmed Problem History of malignant neoplasm of thyroid (530682521) Personal history of malignant neoplasm of thyroid (Z85.850) Active confirmed Vital Signs Heart Rate 70 /min 03/26/2024 Respiratory Rate 12 /min 03/26/2024 Blood pressure diastolic 76 mm Hg 03/26/2024 Height 60 in 03/26/2024 Blood pressure systolic 122 mm Hg 03/26/2024 Weight 140 lbs 03/26/2024 BMI 27.34 kg/m2 03/26/2024 Encounters Encounter Location Date Provider Diagnosis [facility] - Doris Nelson [address] [place] [address] 02/23/2024 Doris Nelson Hypothyroidism, unspecified E03.9 ; Obesity, unspecified E66.9 ; Vitamin B12 deficiency anemia, unspecified D51.9 ; Other fatigue R53.83 ; Personal history of malignant neoplasm of thyroid Z85.850 and Dietary counseling and surveillance Z71.[address] [address] 01/20/2024 Provider Migration Vitamin D deficiency , unspecified E55.9 ; Hypothyroidism, unspecified E03.9 ; Overweight E66.3 and Dietary counseling and surveillance Z71.[address] [facility] - Doris [facility] [address] [place] [address] 10/03/2023 Doris Nelson Hypothyroidism, unspecified E03.9 ; Other fatigue R53.83 ; Vitamin D deficiency, unspecified E55.9 and Encounter for screening for lipoid disorders Z13.220 [facility] [address] [place] [address] 11/07/2023 Doris Nelson [facility] [address] [place] [address] 11/09/2023 Doris Nelson Overweight E66.3 [facility] [address] [place] [address] 02/23/2024 [facility], [facility] - Doris Nelson [address] [place] [address] 03/25/2024 [facility]is [facility], [facility] - Doris Nelson [address] [place] [address] 11/07/2023 Doris Nelson Hypothyroidism, unspecified E03.9 ; Vitamin D deficiency, unspecified E55.9 and Dietary counseling and surveillance Z71.3 [facility], [facility] [address] [place] [address] 03/26/2024 Doris Nelson Hypothyroidism, unspecified E03.9 ; Personal history of malignant neoplasm of thyroid Z85.850 ; Vitamin D deficiency, unspecified E55.9 and Overweight E66.3 [facility] [id number] [place] [address] 10/04/2023 Doris Nelson Hypothyroidism, unspecified E03.9 [facility] [address] [place] [address] 10/04/2023 Doris Nelson [facility] [address] [place] [address] 11/01/2023 Doris Nelson Assessments Encounter Date Diagnosis [...] to 1200 per day if sedentary vs 9348-2294 calories depending on caloric expenditure. She was provided information on Best Response Strategies as this program manages metabolic syndrome and [...] procedures, referring and communicating with other health medicare contact specialist, documenting clinical information in the electronic or [...] procedures, referring and communicating with other health medicare contact specialist, documenting clinical information in the electronic or [...] was negative- Plan: Await ultrasound results from [facility] and review. Ensure thyroglobulin panel remains negative. [...] procedures, referring and communicating with other health medicare contact specialist, documenting clinical information in the electronic or [...] of levothyroxine during a recent trip to [place]. The patient reports feeling mildly fatigued. A small nodule (approximately 1 cm) in the right thyroid lobe has been stable for years, with a previous inconclusive fine needle aspiration biopsy. Increase levothyroxine dose from 125 mcg to 137 mcg daily Continue thyroid ultrasound monitoring of stable nodule Prescription sent to [facility] Fax thyroid-globulin panel results to [facility] Follow-up appointment in June or July Weight managementPatient's weight has decreased from 145 lbs to 140 lbs with the use of phentermine 15 mg, dietary changes, and increased physical activity. Current BMI not provided but weight loss is progressing appropriately. Continue phentermine 15 mg daily Prescription sent to [facility] in [place] Encourage continued dietary modifications and regular exercise Advised gradual weight loss approach DyslipidemiaRecent lipid panel shows elevated cholesterol and triglyceride levels. Specific values not provided. Recommended omega-3 fatty acid supplementation Advised to purchase from [employer] or [employer] Continue monitoring lipid levels Vitamin D deficiencyPatient is currently taking vitamin D supplementation as previously prescribed. Specific levels not provided. Continue current vitamin D supplementation Prescription renewed at [facility] Follow-up:Schedule follow-up appointments as necessary to review [...] procedures, referring and communicating with other health medicare contact specialist, documenting clinical information in the electronic or [...] Date Coverage End Date R [address] [address] [place] [address] [id number] Alicia Jones Self - patient is the insured [facility] [address] [place] [address] [id number] Alicia Jones Self - patient is the insured Medical (General) History Medical History History ICD Code THYROID CANCER Surgical History Surgery Date(Month/Year) THYROID REMOVED hysterectomy vaginal Hospitalization History Reason Date(Month/Year) THYROID REMVOVAL HYSTERECTOMY THYROID CANCER
--- OUTSIDE RECORDS SUMMARY | 2024-07-01 15:20 | XMS_ITS | Clinical Summary ---
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
--- OUTSIDE RECORDS SUMMARY | 2024-07-01 15:20 | XMS_ITS ---
Author Organization [facility] [facility] Address [address] [place] [address] Care Team Providers Care Landfill Attendant Name Role Phone Doris Nelson Primary Care Provider Encounters Encounter Location Date Provider Diagnosis [facility] [address] [place] [address] 02/23/2024 Doris Nelson Plan Of Treatment No Information Progress Notes * Georgie LYLEShDOB:[birth year] (53 yo F)Acc No.[id number]:02/23/2024 Patient: Alicia CLEMENTS :1970 A ge:53 Y S ex:Female Phone: Address:[address] [facility] [place] [address] * true * Date: Generated for Estephaniai nando/Faagapitog/eTransmitting on: 0 07/01/2024 03:20 PM CDT
[2024-07-01 20:07] LABS: Basophils Absolute Auto 0.1 K/mm3 (0.0-0.1); Basophils Percent Auto 0.7 % (0.2-1.2); Eosinophils Absolute Auto 0.1 K/mm3 (0-0.3); Eosinophils Percent Auto 1.2 % (0-4.4); Hematocrit 47.7 % (37.0-47.0); Hemoglobin 15.3 g/dL (12.0-15.0); Immature Granulocyte Absolute 0.02 K/mm3 (0.00-0.031); Immature Granulocyte Percent A 0.2 % (0-0.5); Lymphocytes Absolute Auto 2.44 K/mm3 (0.9-3.2); Lymphocytes Percent Auto 29.6 % (18.3-44.2); Mean Corpuscular HGB Conc 32.1 g/dl (32-36); Mean Corpuscular Hemoglobin 28.1 pg (26-34); Mean Corpuscular Volume 87.5 fl (80-100); Mean Platelet Volume 10.3 fl (7.4-10.4); Monocytes Absolute Auto 0.5 K/mm3 (0.1-0.6); Monocytes Percent Auto 6.4 % (2.6-8.5); Neutrophils Absolute Auto 5.1 K/mm3 (1.3-6.7); Neutrophils Percent Auto 61.9 % (45.5-73.1); Platelet Count Result 296 k/mm3 (150-375); Red Blood Count 5.45 M/mm3 (4.2-5.4); Red Cell Distribution Width 13.2 % (11.5-14.5); White Blood Count 8.2 K/mm3 (4.5-10.0)
[2024-07-01 22:41] LABS: Alanine Aminotransferase 36 U/L (6-35); Albumin Level 4.5 g/dL (3.5-5.1); Alkaline Phosphatase 71 U/L (38-126); Anion Gap 10 mmol/L (4-12); Aspartate Amino Transferase 74 U/L (14-36); Bilirubin,Total 0.4 mg/dL (0.2-1.3); Blood Urea Nitrogen 18 mg/dL (7-17); Calcium 9.4 mg/dL (8.4-10.2); Carbon Dioxide 26 mmol/L (22-30); Chloride 107 mmol/L (98-107); Cholesterol 150 mg/dL (0-200); Estimated Glomerular Filt Rate > 60; Glucose 102 mg/dL (65-110); HDL Direct 36 mg/dL; Sodium 143 mmol/L (137-145); Triglycerides 349 mg/dL (<150)
[2024-07-01 22:42] LABS: Free T3 4.13 pg/mL (2.71-6.16); Free T4 Free Thyroxine 1.57 ng/dL (0.78-2.19); Vitamin D 25 Hydroxy 53.8 ng/mL
[2024-07-01 22:52] LABS: LDL Cholesterol Direct 59 mg/dL
[2024-07-01 23:08] LABS: Thyroid Stimulating Hormone 0.019 uIU/mL (0.465-4.680)
== END 2024-07-01 13:31 | disposition home or self-care (01) ==
PROVIDERS: PCP Family Medicine; Visit Provider Internal Medicine Endocrinology, Diabetes & Metabolism
DX: E03.9 Hypothyroidism, unspecified (principal); E34.9 Endocrine disorder, unspecified; E55.9 Vitamin D deficiency, unspecified; Z13.220 Encounter for screening for lipoid disorders; Z85.850 Personal history of malignant neoplasm of thyroid
CPT/HCPCS: 36415; 80053; 80061; 82306; 84439; 84443; 84481; 85025

== ENCOUNTER 2024-08-26 07:31 | Outpatient (CLI) | payer OTHER, BC, SELFPAY ==
[2024-08-26 20:17] LABS: Hematocrit 48.7 % (37.0-47.0); Hemoglobin 15.5 g/dL (12.0-15.0); Mean Corpuscular HGB Conc 31.8 g/dl (32-36); Mean Corpuscular Hemoglobin 27.7 pg (26-34); Mean Corpuscular Volume 87.1 fl (80-100); Mean Platelet Volume 9.9 fl (7.4-10.4); Platelet Count Result 292 k/mm3 (150-375); Red Blood Count 5.59 M/mm3 (4.2-5.4); Red Cell Distribution Width 13.9 % (11.5-14.5); White Blood Count 8.1 K/mm3 (4.5-10.0)
[2024-08-26 20:30] LABS: Alanine Aminotransferase 38 U/L (6-35); Albumin Level 4.4 g/dL (3.5-5.1); Alkaline Phosphatase 70 U/L (38-126); Anion Gap 10 mmol/L (4-12); Aspartate Amino Transferase 64 U/L (14-36); Bilirubin,Total 0.3 mg/dL (0.2-1.3); Blood Urea Nitrogen 13 mg/dL (7-17); Calcium 9.7 mg/dL (8.4-10.2); Carbon Dioxide 20 mmol/L (22-30); Chloride 109 mmol/L (98-107); Cholesterol 182 mg/dL (0-200); Estimated Glomerular Filt Rate > 60; Glucose 107 mg/dL (65-110); HDL Direct 46 mg/dL; Potassium 4.2 mmol/L (3.4-5.0); Sodium 139 mmol/L (137-145); Triglycerides 167 mg/dL (<150)
[2024-08-26 20:42] LABS: LDL Cholesterol Direct 91 mg/dL
[2024-08-26 20:47] LABS: Hemoglobin A1C 5.5 % (<5.7)
[2024-08-26 20:59] LABS: Thyroid Stimulating Hormone < 0.015 uIU/mL (0.465-4.680)
[2024-08-26 21:01] LABS: Free T3 3.62 pg/mL (2.71-6.16); Free T4 Free Thyroxine 1.21 ng/dL (0.78-2.19)
[2024-08-28 14:20] LABS: Insulin Level Total 37.2 uIU/mL
== END 2024-08-26 07:32 | disposition home or self-care (01) ==
LOC: ANHBWCLAB 07:35
PROVIDERS: PCP Family Medicine; Visit Provider Internal Medicine Endocrinology, Diabetes & Metabolism
DX: R73.01 Impaired fasting glucose (principal); R53.83 Other fatigue; E03.9 Hypothyroidism, unspecified; E66.3 Overweight; Z13.220 Encounter for screening for lipoid disorders
CPT/HCPCS: 36415; 80053; 80061; 80299; 82533; 83036; 83525; 83527; 84439; 84443; 84481; 85027

== ENCOUNTER 2024-08-26 08:07 | Emergency (ER) | payer OTHER, BC, SELFPAY ==
--- NOTE | 2024-08-26 08:10 | ED.FEMALEGU ---
HPI - Female Genitourinary General Chief complaint: Urogenital-Female Stated complaint: Burning Urination Time Seen by Provider: 08/26/24 08:22 Source: patient and RN notes reviewed Mode of arrival: ambulatory Limitations: no limitations History of Present Illness HPI Narrative: 54-year-old female presents with concern for 2 day history of dysuria. Reports yesterday she started having back pain and today she began having urgency. She denies fever, aches, chills, sweats, nausea, vomiting. Reports hot flashes. MD elicited complaint: UTI Related Data Home Medications ?Medication ?Instructions ?Recorded ?Confirmed ?Last Taken ?Type Vitamin d3 BYMOUTH 08/18/21 Unknown History calcium carbonate 500 mg PO DAILY 04/21/23 Unknown History hydroxyzine HCl 25 mg tablet 25 mg PO .PRN PRN itching 03/26/24 Unknown History levothyroxine 100 mcg tablet 125 mcg PO DAILY 03/26/24 Unknown History Allergies Allergy/AdvReac Type Severity Reaction Status Date / Time amoxicillin Allergy Intermediate rash Verified 03/26/24 07:55 Penicillins Allergy Unknown Unknown Verified 03/26/24 07:55 Review of Systems Review of Systems: CONSTITUTIONAL: Denies malaise, chills, sweats, or fever. CARDIOVASCULAR: Denies chest pain, palpitations, or edema. RESPIRATORY: Denies cough or dyspnea. GASTROINTESTINAL: Denies abdominal pain, nausea, vomiting, diarrhea GENITOURINARY: Reports dysuria, frequency, urgency. Denies suprapubic pressure. Denies flank pain or hematuria. SKIN: Denies rash or itching. MUSCULOSKELETAL: Reports low back pain. Denies myalgia. All systems reviewed & are unremarkable except as noted in HPI and below PMFSH Past Medical History Medical History Thyroid cancer Hypothyroidism, unspecified Surgical History Surgical History Hx of thyroidectomy Family History Family History Father Hypertension Mother Skin cancer Grandparent Skin cancer Social History Social History Smoking status: Never smoker Alcohol intake: never Substance use: never Substance use type: does not use Lack of Transportation: No Lack of Food: Never True Current Housing: I Have Housing Concerned About Future Housing: No Difficulty Paying Gas/Electric Bills: No Difficulty Paying for Meds: No Currently Unemployed: No Education: High School Diploma/GED Difficulty w/ Childcare or Family Care: No Living arrangements: with family Occupation/Education: occupation Additional occupation/education comments: [employer] Patient [employer] Gender identity (if verbalized by the patient): Female Sexual Orientation (if Verbalized by the Patient): Straight or Heterosexual Spiritual care concerns: No Agree to blood products: Yes Comments At time of signature, agree with nursing past medical, surgical, social and family history. There is no relevant family history pertinent to the presenting complaint Exam Narrative: GENERAL: Well-appearing, well-nourished, and in no acute distress. HEAD: Normocephalic. EYES: PERRLA, conjunctivae clear. NECK: Supple. No lymphadenopathy CHEST: Clear to auscultation. No respiratory distress. HEART: Regular rate and rhythm. ABDOMEN: Soft, nontender upon palpation, nondistended, normal active bowel sounds, no palpable or pulsatile masses, no guarding. No CVA tenderness SKIN: Warm, dry, no rash. NEURO: Alert and oriented x3. PSYCH: Normal mood and affect Course Course Emergency Course: Patient is aware of diagnosis, understands and agrees to treatment plan. Anticipatory guidance given. Patient agrees to follow-up as directed and is aware of reasons to seek care at the emergency department. Portions of this record may have been created with voice recognition software Level of Care: Express Care Visit Vital Signs Vital signs: Reviewed. MDM - Female Genitourinary MDM Narrative Medical decision making narrative: Exam findings and UA show no acute concerns or changes; patient is non-toxic appearing and is in no distress. Patient is appropriate for outpatient treatment and follow-up. Differential Diagnosis Differential diagnosis: Likely urinary tract infection and cystitis Critical Care Time Critical Care Time Critical Care Time: No Discharge Plan Discharge Clinical Impression: Symptoms of urinary tract infection Patient Disposition: Home Condition: Stable Instructions: Antibiotic Form, Urinary Tract Infection in Women (ED) Additional Instructions: We will send a urine culture to the lab; if the culture identifies an organism that the prescribed antibiotic will not treat, you will receive a phone call from an urgent care staff member and an appropriate antibiotic will be prescribed. -Your symptoms should begin to improve within a day of starting antibiotics. But you should finish all the antibiotic pills you get. Otherwise your infection might come back. -Also recommend: increase water intake. Tylenol/ibuprofen as needed for pain or fever -Follow-up with your primary care provider for urine recheck or seek ER visit if condition worsens with high fever, nausea, vomiting and severe back pain. Patient Language: Macanese Prescriptions: New nitrofurantoin monohyd/m-cryst [Macrobid] 100 mg capsule 100 mg PO Q12H 5 Days Qty: 10 0RF Rx Instructions: must administer with a meal/food No Action Vitamin d3 BYMOUTH calcium carbonate 500 mg calcium (1,250 mg) tablet 500 mg PO DAILY hydroxyzine HCl 25 mg tablet 25 mg PO .PRN PRN (Reason: itching) levothyroxine 100 mcg tablet 125 mcg PO DAILY hydroxyzine HCl 25 mg tablet 25 mg PO QHS PRN (Reason: sleep) Qty: 90 1RF (DME) insulin syringe-needle U-100 1 mL 31 gauge x 15/64 syringe See Rx Instructions .ROUTE .COMPLEX Qty: 10 0RF Dose Instruction: USE DIRECTED Rx Instructions: USE DIRECTED cyanocobalamin (vitamin B-12) 1,000 mcg/mL solution See Rx Instructions .ROUTE .COMPLEX Qty: 4 3RF Dose Instruction: INJECT 1 ML (CC) SUBCUTANEOUSLY ONCE A WEEK Rx Instructions: INJECT 1 ML (CC) SUBCUTANEOUSLY ONCE A WEEK Follow-up/Referrals: Elvin Smith MD [Primary Care Provider] - Time of Disposition: 08:30
[2024-08-26 08:12] VITALS: BP 151/88; PULSE 84; RESP 20; TEMP 36.9; O2SAT 100
[2024-08-26 08:26] LABS: EDUAAPPEAR Clear; EDUABILI Negative (Negative); EDUABLOOD Negative (Negative); EDUACOLOR1 Yellow; EDUAGLUCOSE Negative (Negative); EDUAKETONE Negative (Negative); EDUALEUKO Negative (Negative); EDUANITRATE Negative (Negative); EDUAPH 5.5; EDUAPROTEIN Negative (Negative); EDUAUROBILI 0.2
== END 2024-08-26 08:35 | disposition home or self-care (01) ==
PROVIDERS: Emergency Provider Nurse Practitioner; PCP Family Medicine
DX: R30.0 Dysuria (principal); R39.15 Urgency of urination; E03.9 Hypothyroidism, unspecified; Z85.850 Personal history of malignant neoplasm of thyroid; Z85.89 Personal history of malignant neoplasm of other organs and systems
CPT/HCPCS: 81003; 87086; 99213; G0463

== ENCOUNTER → 2024-11-11 17:45 | Outpatient (CLI) | payer OTHER, BC, SELFPAY ==
--- NOTE | ~2024-11-11 | XR_ITS ---
EXAMINATION: XR lumbar spine 2-3V DATE: 11/11/2024 18:11 INDICATION: Low back pain TECHNIQUE: Anteroposterior and lateral views of the lumbar spine, and cone-down lateral view of the lumbosacral junction were obtained. COMPARISON: None. FINDINGS: 5 degrees lumbar dextrocurvature. Transitional partially lumbarized S1 segment. Sagittal alignment is normal. Vertebral body heights are normal. Minimal disc height loss at L4-L5 and mild disc height loss at L5-S1. Moderate to severe lower lumbar facet osteoarthritis. Sacrum and bilateral sacroiliac joints are normal. Soft tissues are unremarkable. IMPRESSION: 1. Mild lower lumbar spondylosis with moderate to severe facet osteoarthritis. No evident acute osseous abnormality. Reviewed, dictated and finalized at location A.
== END ==
PROVIDERS: PCP Family Medicine; Visit Provider Family Medicine
DX: M54.30 Sciatica, unspecified side (principal); M47.896 Other spondylosis, lumbar region
CPT/HCPCS: 72100

== ENCOUNTER 2024-12-04 14:10 | Outpatient (CLI) | payer OTHER, BC, SELFPAY ==
--- NOTE | ~2024-12-04 | MR_ITS ---
EXAMINATION: MR lumbar spine wo con DATE: 12/04/2024 14:52 INDICATION: Low back pain, unspecified. TECHNIQUE: Magnetic resonance imaging (MRI) of the lumbar spine was performed without intravenous contrast. COMPARISON: Lumbar spine radiographs 11/11/2024 FINDINGS: S1 is a transitional segment. There is 6 degrees dextrocurvature of thoracolumbar spine. There is 2 mm anterolisthesis of L4 on L5. Vertebral body heights are normal. There is mildly decreased disc height at L4-L5 and L5-S1. The distal spinal cord signal intensity is normal. The conus medullaris is at L1-L2. The following disc levels are specifically discussed: L1-L2: The disc is bulging. There is mild bilateral facet joint osteoarthritis. There is no neural foraminal stenosis. There is mild central canal stenosis. L2-L3: The disc does not extend beyond the endplate margin. There is no facet joint osteoarthritis. There is no neural foraminal stenosis. There is no central canal stenosis. L3-L4: The disc is bulging. There is moderate right and mild left facet joint osteoarthritis. There is mild bilateral neural foraminal stenosis. There is mild central canal stenosis. L4-L5: The disc is bulging and has an annular fissure. There is severe bilateral facet joint osteoarthritis. There is mild bilateral neural foraminal stenosis. There is mild central canal stenosis. L5-S1: The disc is bulging and has an annular fissure. There is severe bilateral facet joint osteoarthritis. There is mild bilateral neural foraminal stenosis. There is mild central canal stenosis. IMPRESSION: 1. Mild lumbar spondylosis. Reviewed, dictated and finalized at location E. IMPRESSION: 1. Mild lumbar spondylosis.
== END 2024-12-04 14:11 | disposition home or self-care (01) ==
LOC: MICIMG 14:10
PROVIDERS: PCP Family Medicine; Visit Provider Family Medicine
DX: M54.30 Sciatica, unspecified side (principal); M47.896 Other spondylosis, lumbar region
CPT/HCPCS: 72148